=== PATIENT | female | born 1930 | race Caucasian/White ===

== ENCOUNTER 2017-06-22 07:58 | Day surgery (SDC) | payer MEDICARE, BC ==
[2017-06-22] MEDS ORDERED: Moxifloxacin 0.5% Ophth Soln 3 ML Bottle EYELF SCH (08:15)
[2017-06-22] MEDS ORDERED: Sodium Chloride 0.9% 5 ML Syringe FLUSH PRN (08:15)
[2017-06-22] MEDS ORDERED: Lactated Ringers 1,000 ML IV SCH (08:15)
[2017-06-22] MEDS: Phenylephrine 10% Ophth Soln 5 ML Bot EYELF SCH ×3 (08:22→08:55)
[2017-06-22] MEDS: Cyclopentolate 1% Opth Soln 2 ML Bottle EYELF SCH ×3 (08:32→09:05)
[2017-06-22] MEDS ORDERED: Water For Irrigation,Sterile 1,500 ML Container IRR ONE (09:57)
[2017-06-22] MEDS ORDERED: Balanced Salt Solution Ophth Irrig 15 ML Bottle EYELF ONE (09:58)
[2017-06-22] MEDS ORDERED: Balanced Salt Solution Plus Ophth Irrig 500 ML Bottle IOCULAR ONE (09:58)
[2017-06-22] MEDS ORDERED: EPINEPHrine 1 MG/ML SDV ONE (09:59)
[2017-06-22] MEDS ORDERED: Carbachol 0.01% Intraocular 1.5 ML Vial EYELF ONE (09:59)
[2017-06-22] MEDS ORDERED: Dexamethasone/Neomycin/Polymyxin B Ophth Oint 3.5 GM Tube EYELF ONE (09:59)
[2017-06-22] MEDS ORDERED: Lidocaine 1% 10 ML MDV INJECT ONE (10:00)
[2017-06-22] MEDS ORDERED: Lidocaine 2% with EPINEPHrine 1:100,000 20 ML MDV INJECT ONE (10:00)
[2017-06-22] MEDS ORDERED: Tetracaine HCl/PF 0.5% 4 ML Bottle EYEBOTH ONE (10:01)
[2017-06-22] MEDS ORDERED: Hyaluronate Sodium 1% 0.85 ML Syringe IOCULAR ONE (10:01)
--- NOTE | 2017-06-23 09:29 | OR ---
DATE OF SURGERY: 06/22/2017 SURGEON: Carlitos Garcia MD PREOPERATIVE DIAGNOSIS: Cataract, left eye. POSTOPERATIVE DIAGNOSIS: Cataract, left eye. OPERATION PERFORMED: Phacoemulsification with posterior chamber lens insertion, left eye. HISTORY: This lady presents with increasing difficulty seeing the print on television. The vision for the left eye is 20/60. The left lens has a 3+ nuclear sclerosis and a 3+ posterior subcapsular finding. 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 FINDINGS: The patient was taken to the operating room where appropriate anesthesia, sedation and monitoring were provided. A retrobulbar block was given on the left side. The eye was massaged and was found to be appropriately soft. The eye and eyelids were then prepped and draped in the usual sterile manner. A lid speculum was placed. A micro sharp blade was used to enter the anterior chamber inside the limbus inferior-temporally. Xylocaine was irrigated into the eye at this site. Healon was irrigated into the eye through this site. Then using a 2.85 mm corneal blade an entry was made into the anterior chamber just inside the limbus temporally. Healon was again irrigated into the eye. Then using a cystitome, the anterior capsulorrhexis was created. The lens nucleus was hydrodissected using a 27 gauge cannula and balanced salt solution. The phacoemulsification unit was introduced through the temporal site and the Festus spatula through the inferior temporal site. In so doing, the lens nucleus was phacoemulsified. The cortical fragments of the lens were removed using the irrigation aspiration unit. The posterior capsule was polished. Healon was irrigated into the eye. The posterior chamber lens was inserted and rotated into position inside the capsular bag. The Healon was irrigated out of the eye. Miostat was irrigated into the eye and the pupil rounded nicely. A single interrupted 10-0 Nylon suture was placed through the temporal corneal incision site. Balanced salt solution was irrigated into the eye. The wound was tested and found to be tight. Maxitrol ointment was placed into the patient's left eye. The eyelids were closed and an eye patch and nur shield were placed. The patient left the operating room in good condition. /[id number]/MODL
== END 2017-06-22 10:44 | disposition home or self-care (01) ==
LOC: KA.SDS 07:58
PROVIDERS: ATTEND Ophthalmology
DX: H25.812 Combined forms of age-related cataract, left eye (principal); I10 Essential (primary) hypertension; E78.1 Pure hyperglyceridemia; E78.00 Pure hypercholesterolemia, unspecified; Z79.899 Other long term (current) drug therapy
CPT/HCPCS: A9270-GY; J0171; J7120

== ENCOUNTER 2017-07-27 08:15 | Day surgery (SDC) | payer MEDICARE, BC ==
[~2017-07-27 08:15] MED LIST: Lactated Ringers 1,000 ML IV SCH; Sodium Chloride 0.9% 5 ML Syringe FLUSH PRN
[2017-07-27] MEDS: Phenylephrine 10% Ophth Soln 5 ML Bot EYERT SCH ×3 (08:31→09:03)
[2017-07-27] MEDS: Cyclopentolate 1% Opth Soln 2 ML Bottle EYERT SCH ×3 (08:41→09:17)
[2017-07-27] MEDS ORDERED: Moxifloxacin 0.5% Ophth Soln 3 ML Bottle EYERT ONE (08:45)
[2017-07-27] MEDS ORDERED: Water For Irrigation,Sterile 1,500 ML Container IRR ONE (10:12)
[2017-07-27] MEDS ORDERED: Carbachol 0.01% Intraocular 1.5 ML Vial EYERT ONE (10:13)
[2017-07-27] MEDS ORDERED: EPINEPHrine 1 MG/ML SDV ONE (10:13)
[2017-07-27] MEDS ORDERED: Balanced Salt Solution Plus Ophth Irrig 500 ML Bottle IOCULAR ONE (10:13)
[2017-07-27] MEDS ORDERED: Balanced Salt Solution Ophth Irrig 15 ML Bottle EYERT ONE (10:13)
[2017-07-27] MEDS ORDERED: Lidocaine 2% with EPINEPHrine 1:100,000 20 ML MDV INJECT ONE (10:14)
[2017-07-27] MEDS ORDERED: Dexamethasone/Neomycin/Polymyxin B Ophth Oint 3.5 GM Tube EYERT ONE (10:14)
[2017-07-27] MEDS ORDERED: Lidocaine 1% 10 ML MDV INJECT ONE (10:14)
[2017-07-27] MEDS ORDERED: Tetracaine HCl/PF 0.5% 4 ML Bottle EYEBOTH ONE (10:15)
[2017-07-27] MEDS ORDERED: Hyaluronate Sodium 1% 0.85 ML Syringe IOCULAR ONE (10:15)
--- NOTE | 2017-07-27 15:57 | OR ---
DATE OF SURGERY: 07/27/2017 SURGEON: Carlitos Garcia MD PREOPERATIVE DIAGNOSIS: Cataract, right eye. POSTOPERATIVE DIAGNOSIS: Cataract, right eye. OPERATION PERFORMED: Phacoemulsification with posterior chamber lens insertion, right eye. HISTORY: The patient presents at this time with an increasing amount of difficulty seeing print on television and she has difficulty seeing to drive at night. Vision for the right eye is 20/50. The right lens has a 3+ nuclear sclerosis and a 2+ posterior subcapsular cataract. There is a combined cataract and a cataract of aging. FINDINGS: The patient was taken to the operating room where appropriate anesthesia, sedation and monitoring were provided. A retrobulbar block was given on the right side. The eye was massaged and was found to be appropriately soft. The eye and eyelids were then prepped and draped in the usual sterile manner. A lid speculum was placed. A micro sharp blade was used to enter the anterior chamber inside the limbus superior-temporally. Xylocaine was irrigated into the eye at this site. Healon was irrigated into the eye through this site. Then using a 2.85 mm corneal blade an entry was made into the anterior chamber just inside the limbus temporally. Healon was again irrigated into the eye. Then using a cystitome, the anterior capsulorrhexis was created. The lens nucleus was hydrodissected using a 27 gauge cannula and balanced salt solution. The phacoemulsification unit was introduced through the temporal site and the Festus spatula through the superior temporal site. In so doing, the lens nucleus was phacoemulsified. The cortical fragments of the lens were removed using the irrigation aspiration unit. The posterior capsule was polished. Healon was irrigated into the eye. The posterior chamber lens was inserted and rotated into position inside the capsular bag. The Healon was irrigated out of the eye. Miostat was irrigated into the eye and the pupil rounded nicely. A single interrupted 10-0 Nylon suture was placed through the temporal corneal incision site. Balanced salt solution was irrigated into the eye. The wound was tested and found to be tight. Maxitrol ointment was placed into the patient's right eye. The eyelids were closed and an eye patch and nur shield were placed. The patient left the operating room in good condition. /[id number]/MODL
== END 2017-07-27 10:55 | disposition home or self-care (01) ==
LOC: KA.SDS 08:15
PROVIDERS: ATTEND Ophthalmology
DX: H26.9 Unspecified cataract (principal); E78.00 Pure hypercholesterolemia, unspecified; E78.1 Pure hyperglyceridemia; I10 Essential (primary) hypertension; Z79.899 Other long term (current) drug therapy
CPT/HCPCS: 00142; A9270-GY; C1780; J0171; J7120

== ENCOUNTER 2018-03-22 19:19 | Inpatient (IN) | payer MEDICARE, BC ==
[2018-03-22] MEDS ORDERED: Sodium Chloride 0.9% 10 ML Syringe FLUSH PRN ×2 (19:51→21:20)
--- NOTE | 2018-03-22 20:09 | EDM.PDOC ---
ED HPI GENERAL MEDICAL PROBLEM - General Chief Complaint: General Stated Complaint: WEAKNESS Time Seen by Provider: 03/22/18 19:35 Source of Information: Reports: Patient History Limitations: Reports: No Limitations - History of Present Illness INITIAL COMMENTS - FREE TEXT/NARRATIVE: 87 yo WF presents to ER complaining of generalized weakness with mild confusion. Family member states that they received a call earlier in the day from an out of state family member who was talking to patient on the phone and she seemed confused. Once they arrived pt was sitting in her chair and was too weak to ambulate on her own. Pt reported gettinga ride to her doctors office today by her neighbor but this was found to be untrue. Pt denies any chest pain , shortness of breath, recent illness, fever/chills, nausea/vomiting. Pt alert with no evidence of slurred speech, no facial droop, no headache or visual changes. Pt able to move all extremities but states she feels weak. Pt alert and oriented to self and place only. GCS-15 Onset: Unknown/Unsure Location: Reports: Generalized Severity: Mild Improves with: Reports: None Worsens with: Reports: None Associated Symptoms: Reports: Confusion, Malaise, Weakness. Denies: Chest Pain , Cough, cough w sputum, Diaphoresis, Fever/Chills, Headaches, Loss of Appetite , Nausea/Vomiting, Rash, Seizure, Shortness of Breath, Syncope - Related Data Allergies Allergy/AdvReac Type Severity Reaction Status Date / Time No Known Drug Allergies Allergy Cannot Verified 07/27/17 08:26 Remember Home Meds: Home Meds Benazepril [Lotensin] 10 mg PO DAILY 06/21/17 [History] Ca/D3/Mag#11/Zinc/Strategic Debriefing Specialist/Erik/Bor [Caltrate 600+D Plus Tablet] 1 tab PO BIDMEALS [History] Gemfibrozil 600 mg PO DAILY 06/21/17 [History] Baclofen 10 mg PO TID 03/22/18 [History] Past Medical History HEENT History: Reports: Cataract, Impaired Vision Cardiovascular History: Reports: High Cholesterol, Hypertension [employer] History: Reports: 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 - Infectious Disease History Other Infectious Disease History: unknown - Past Surgical History HEENT Surgical History: Reports: Cataract Surgery Musculoskeletal Surgical History: Reports: Knee Replacement Social & Family History - Family History Family Medical History: Noncontributory - Caffeine Use Caffeine Use: Reports: Coffee, Tea ED ROS GENERAL - Review of Systems Review Of Systems: See Below Constitutional: Reports: No Symptoms HEENT: Reports: No Symptoms Respiratory: Reports: No Symptoms Cardiovascular: Reports: No Symptoms Endocrine: Reports: No Symptoms GI/Abdominal: Reports: No Symptoms : Reports: No Symptoms Skin: Reports: No Symptoms Neurological: Reports: Confusion, Difficulty Walking, Weakness. Denies: Dizziness, Headache, Numbness, Paresthesia, Pre-Existing Deficit, Seizure, Syncope, Tingling, Tremors, Trouble Speaking, Change in Speech Psychiatric: Reports: Confusion Hematologic/Lymphatic: Reports: No Symptoms Immunologic: Reports: No Symptoms ED EXAM, NEURO - Physical Exam Exam: See Below Exam Limited By: Altered Mental Status General Appearance: Alert, WD/WN, No Apparent Distress Eye Exam: Bilateral Eye: EOMI, PERRL Nose: Normal Inspection, Normal Mucosa, No Blood Throat/Mouth: Normal Inspection, Normal Lips, Normal Teeth, Normal Gums, Normal Oropharynx, Normal Voice, No Airway Compromise Head Exam: Atraumatic, Normocephalic Neck: Normal Inspection, Supple, Non-Tender, Full Range of Motion Respiratory/Chest: No Respiratory Distress, Lungs Clear, Normal Breath Sounds, No Accessory Muscle Use, Chest Non-Tender Cardiovascular: Normal Peripheral Pulses, Regular Rate, Rhythm, No Edema, No Gallop, No JVD, No Murmur, No Rub GI/Abdominal: Normal Bowel Sounds, Soft, Non-Tender, No Organomegaly, No Distention, No Abnormal Bruit, No Mass Neurological: Alert, Normal Mood/Affect, Normal Dorsiflexion, CN II-XII Intact, Normal Plantar Flexion, Normal Reflexes, No Motor/Sensory Deficits Extremities: Normal Inspection, Normal Range of Motion, Non-Tender, No Pedal Edema, Normal Capillary Refill Psychiatric: Normal Affect, Normal Mood Skin Exam: Warm, Dry, Intact, Normal Color, No Rash EKG INTERPRETATION EKG Date: 03/22/18 Time: 20:05 Rhythm: NSR Rate (Beats/Min): 92 [place]: LAD-Left [place] Deviation P-Wave: Present QRS: Normal ST-T: Normal QT: Normal Comparison: NA - No Prior EKG Course - Vital Signs Last Recorded V/S: Last Vital Signs Temp 37.1 C 03/22/18 19:56 Pulse 100 03/22/18 19:56 Resp 16 03/22/18 19:56 BP 156/54 H 03/22/18 19:56 Pulse Ox 92 L 03/22/18 19:56 - Orders/Labs/Meds Orders: Active Orders 24 hr Category Date Time Status EKG Documentation Completion [RC] ASDIRECTED Care 03/22/18 19:52 Ordered Peripheral IV Care [RC] . DIRECTED Care 03/22/18 19:52 Active CULTURE BLOOD [BC] Stat Lab 03/22/18 20:54 Ordered CULTURE BLOOD [BC] Stat Lab 03/22/18 20:54 Ordered LACTIC ACID [CHEM] Stat Lab 03/22/18 20:39 Ordered URINALYSIS W/MICROSCOPIC [UA W/MICROSCOPIC] [URIN] Stat Lab 03/22/18 19:51 Ordered Sodium Chloride 0.9% [Normal Saline] 500 ml Med 03/22/18 21:00 Ordered IV .BOLUS Sodium Chloride 0.9% [Saline Flush] Med 03/22/18 19:51 Ordered 10 ml FLUSH Q8HR PRN Blood Culture x2 Reflex Set [OM.PC] Stat Oth 03/22/18 20:53 Ordered Peripheral IV Insertion Adult [OM.PC] Routine Oth 03/22/18 19:51 Ordered EKG 12 Lead [EK] Routine Ther 03/22/18 19:51 Ordered Medication Orders Sodium Chloride (Normal Saline) 500 mls @ 500 drops/hr IV .BOLUS LIN Sodium Chloride (Saline Flush) 10 ml FLUSH Q8HR PRN PRN Reason: keep vein open Labs: Laboratory Tests 03/22/18 03/22/18 Range/Units 20:10 20:10 WBC 18.29 H (5.00-10.00) 10^3/uL RBC 4.09 (3.80-5.50) 10^6/uL Hgb 12.6 (12.0-16.0) g/dL Hct 37.4 (37.0-47.0) % MCV 91.4 (82.0-92.0) fL MCH 30.8 (27.0-31.0) pg MCHC 33.7 (32.0-36.0) g/dL RDW 13.4 (11.5-14.5) % Plt Count 195 (150-400) 10^3/uL MPV 10.3 (7.4-10.4) fL Immature Gran % (Auto) 0.4 (0.0-5.0) % Neut % (Auto) 88.4 H (50.0-70.0) % Lymph % (Auto) 5.9 L (20.0-40.0) % [place] % (Auto) 5.0 (2.0-8.0) % Eos % (Auto) 0.2 L (1.0-3.0) % Baso % (Auto) 0.1 (0.0-1.0) % Immature Gran # (Auto) 0.08 (0.00-0.50) 10^3/uL Neut # (Auto) 16.18 H (2.50-7.00) 10^3/uL Lymph # (Auto) 1.07 (1.00-4.00) 10^3/uL [place] # (Auto) 0.92 H (0.10-0.80) 10^3/uL Eos # (Auto) 0.03 L (0.10-0.30) 10^3/uL Baso # (Auto) 0.01 (0.00-0.10) 10^3/uL Platelet Estimate Adequate Sodium 133 L (136-145) mmol/L Potassium 3.5 (3.3-5.3) mmol/L Chloride 93 L (98-115) mmol/L Carbon Dioxide 24.2 (21.0-32.0) mmol/L Anion Gap 19.3 H (5-15) mmol/L BUN 43 H (6-25) mg/dL Creatinine 0.83 (0.51-1.17) mg/dL Est Cr Clr Drug Dosing TNP Estimated GFR (MDRD) > 60 mL/min Glucose 174 H (75 - 99) mg/dL Calcium 9.9 (8.7-10.3) mg/dL Total Bilirubin 0.6 (0.2-1.0) mg/dL AST 33 (15-37) U/L ALT 26 (12-78) U/L Alkaline Phosphatase 86 (46-116) IU/L Creatine Kinase 173 (26-276) U/L CK-MB (CK-2) 6.30 H* (0.00-4.30) ng/mL Troponin I 0.04 (0.00-0.070) ng/mL Total Protein 7.9 (6.4-8.2) g/dL Albumin 2.89 L (3.00-4.80) g/dL Meds: Medications Generic Name Dose Route Start Last Admin Trade Name Freq PRN Reason Stop Dose Admin Sodium Chloride 500 mls @ 500 drops/hr 03/22/18 21:00 Normal Saline IV .BOLUS LIN Sodium Chloride 10 ml 03/22/18 19:51 Saline Flush FLUSH Q8HR PRN keep vein open - Radiology Interpretation Free Text/Narrative:: CXR- NAD CT Head- NAD Departure - Departure Time of Disposition: 21:17 Disposition: Admitted As Inpatient 67 Condition: Fair Clinical Impression: UTI, Urinary tract infectious disease, Dehydration Leukocytosis Qualifiers: Leukocytosis type: other Qualified Code(s): D72.828 - Other elevated white blood cell count - Discharge Information Referrals: Avtar Perez MD [Primary Care Provider] - Forms: ED Department Discharge - My Orders Last 24 Hours: My Active Orders 03/22/18 19:51 URINALYSIS W/MICROSCOPIC [UA W/MICROSCOPIC] [URIN] Stat Sodium Chloride 0.9% [Saline Flush] 10 ml FLUSH Q8HR PRN Peripheral IV Insertion Adult [OM.PC] Routine EKG 12 Lead [EK] Routine 03/22/18 19:52 EKG Documentation Completion [RC] ASDIRECTED Peripheral IV Care [RC] . DIRECTED 03/22/18 20:39 LACTIC ACID [CHEM] Stat 03/22/18 20:53 Blood Culture x2 Reflex Set [OM.PC] Stat 03/22/18 20:54 CULTURE BLOOD [BC] Stat CULTURE BLOOD [BC] Stat 03/22/18 21:00 Sodium Chloride 0.9% [Normal Saline] 500 ml IV .BOLUS - Assessment/Plan Last 24 Hours: My Active Orders 03/22/18 19:51 URINALYSIS W/MICROSCOPIC [UA W/MICROSCOPIC] [URIN] Stat Sodium Chloride 0.9% [Saline Flush] 10 ml FLUSH Q8HR PRN Peripheral IV Insertion Adult [OM.PC] Routine EKG 12 Lead [EK] Routine 03/22/18 19:52 EKG Documentation Completion [RC] ASDIRECTED Peripheral IV Care [RC] . DIRECTED 03/22/18 20:39 LACTIC ACID [CHEM] Stat 03/22/18 20:53 Blood Culture x2 Reflex Set [OM.PC] Stat 03/22/18 20:54 CULTURE BLOOD [BC] Stat CULTURE BLOOD [BC] Stat 03/22/18 21:00 Sodium Chloride 0.9% [Normal Saline] 500 ml IV .BOLUS Assessment:: 1. Leukocytosis 2. probable UTI 3. dehydration Plan: 1. admit to [facility] 2. NS@125cc/hr 3. rocephin 1g IV QD 4. blood cultures x 2 5. supportive care
--- NOTE | 2018-03-22 20:46 | CT ---
[id number] CT/CT Head WO IV EXAM: CT Head WO IV CLINICAL DATA: WEAKNESS COMPARISON STUDY: None FINDINGS: No intracranial hemorrhage, extra-axial fluid collection, mass, or acute ischemia. Generalized parenchymal atrophy with scattered areas of nonspecific white matter disease, commonly seen as sequela of chronic microvascular ischemia. Soft tissues are unremarkable. Paranasal sinuses and mastoid air cells are clear. IMPRESSION: No acute intracranial findings. Tyree Case DO 03/22/18 2045 Thank you for allowing us to participate in the care of your patient.
--- NOTE | 2018-03-22 20:48 | CR ---
[id number] RAD/RAD Chest PA or AP 1V EXAM: RAD Chest PA or AP 1V INDICATION: WEAKNESS COMPARISON: July 24, 2017. DISCUSSION: Cardiomediastinal silhouette is increased in size. No infiltrate, effusion, pneumothorax, or edema. Bibasilar subsegmental atelectasis. IMPRESSION: No acute cardiopulmonary abnormality. Tyree Case DO 03/22/18 2047 Thank you for allowing us to participate in the care of your patient.
[2018-03-22 20:51] LABS: ANION GAP 19.3 mmol/L (5-15); CHLORIDE,CL 93 mmol/L (98-115); SODIUM,NA 133 mmol/L (136-145)
[2018-03-22] MEDS ORDERED: Sodium Chloride 0.9% 500 ML IV SCH (21:00)
[2018-03-22] MEDS ORDERED: cefTRIAXone 1 GM Vial IVPUSH SCH (21:30)
[2018-03-22] MEDS: Sodium Chloride 0.9% 1,000 ML IV SCH (22:55)
[2018-03-23] MEDS: Sodium Chloride 0.9% 1,000 ML IV SCH ×2 (06:46→14:50)
[2018-03-23 07:45] LABS: CHLORIDE,CL 97 mmol/L (98-115); SODIUM,NA 144 mmol/L (136-145)
--- NOTE | 2018-03-23 10:04 | PCM.HP ---
H&P History of Present Illness - General Date of Service: 03/23/18 Admit Problem/Dx: Admission Diagnosis/Problem Admission Diagnosis/Problem Leukocytosis Source of Information: Patient, Old Records, RN History Limitations: Reports: No Limitations - History of Present Illness Initial Comments - Free Text/Narative: Kate is an 87-year-old female who was admitted last night around 1999 through the ED when she came in due to generalized weakness with some mild confusion. Patients family members stated they received a call earlier in the day from an out of state family member who was talking to patient on the phone and she seemed confused. Once they arrived pt was sitting in her chair and was too weak to ambulate on her own. Her presentation in the ER was without any chest pain or shortness of breath, she denied recent illness, fever/chills, nausea/ vomiting. She had no appearance of CVA such as slurred speech, no facial droop, no headache or visual changes. Pt able to move all extremities but states she feels weak. GCS-15. She had been having cervical muscle spasm and a few weeks ago was on Valium. She was given 1 g of Rocephin in the ED and blood cultures were taken, started on IV fluids and was admitted to inpatient care. Yost catheter was placed upon admission last night, Lactic acid slightly elevated at 2.2. Posterior Neck Pain Score (Numeric/FACES): 5 - Related Data Allergies/Adverse Reactions: Allergies Allergy/AdvReac Type Severity Reaction Status Date / Time No Known Drug Allergies Allergy Cannot Verified 03/27/18 06:21 Remember Home Medications: Home Meds Benazepril [Lotensin] 10 mg PO DAILY 06/21/17 [History] Ca/D3/Mag#11/Zinc/Hand Clipper/Erik/Bor [Caltrate 600+D Plus Tablet] 1 tab PO BIDMEALS [History] Gemfibrozil 600 mg PO DAILY 06/21/17 [History] Baclofen 10 mg PO TID 03/22/18 [History] Doxylamine Succinate [Unisom Sleep Aid] 25 mg PO BEDTIME 03/26/18 [History] Past Medical History HEENT History: Reports: Cataract, Impaired Vision Cardiovascular History: Reports: High Cholesterol, Hypertension Respiratory History: Reports: None Genitourinary History: Reports: Renal Calculus, Urinary Incontinence 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: Musculoskeletal History: Reports: Neck Pain, Chronic, Other (See Below) Other Musculoskeletal History: 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 Neurological History: Reports: None Hematologic History: Reports: Blood Transfusion(s) 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 - Infectious Disease History Other Infectious Disease History: unknown - Past Surgical History Head Surgeries/Procedures: Reports: None HEENT Surgical History: Reports: Cataract Surgery Cardiovascular Surgical History: Reports: None Respiratory Surgical History: Reports: None GI Surgical History: Reports: Appendectomy, Cholecystectomy Female Surgical History: Reports: Hysterectomy, Kidney stone extraction Musculoskeletal Surgical History: Reports: Knee Replacement Social & Family History - Family History HEENT: Reports: None Cardiac: Reports: Heart Murmur, Hypertension, HI Respiratory: Reports: COPD GI: Reports: None : Reports: None OBGYN: Reports: None Musculoskeletal: Reports: None Neurological: Reports: Dementia Psychiatric: Reports: None Endocrine/Metabolic: Reports: None Hematologic: Reports: None Immunologic: Reports: None Dermatologic: Reports: None Oncologic: Reports: None - Tobacco Use Smoking Status *Q: Never Smoker Second Hand Smoke Exposure: No - Caffeine Use Caffeine Use: Reports: Coffee - Recreational Drug Use Recreational Drug Use: No H&P Review of Systems - Review of Systems: Review Of Systems: See Below General: Reports: Malaise. Denies: Fever, Chills, Night Sweats, Diaphoresis HEENT: Reports: No Symptoms Pulmonary: Reports: No Symptoms Cardiovascular: Reports: No Symptoms Gastrointestinal: Reports: Constipation, Other (Hemorrhoids) Genitourinary: Reports: Other (Urine odor). Denies: Dysuria, Frequency, Burning , Pain Musculoskeletal: Reports: Leg Pain Skin: Reports: Dryness Psychiatric: Reports: Mood Lability. Denies: Confusion Neurological: Denies: Confusion Hematologic/Lymphatic: Reports: No Symptoms Immunologic: Reports: No Symptoms Exam - Exam Exam: See Below - Vital Signs Vital Signs: Last Vital Signs Temp 97.8 F 03/23/18 06:53 Pulse 70 03/23/18 06:53 Resp 16 03/23/18 06:53 BP 100/40 L 03/23/18 06:53 Pulse Ox 93 L 03/23/18 06:53 Weight: 181 lb 5 oz - Exam Quality Assessment: No: Supplemental Oxygen General: Alert, Oriented, Cooperative. No: Mild Distress HEENT: No: Mucosa Moist & [place] Neck: Supple Lungs: Clear to Auscultation, Normal Respiratory Effort Cardiovascular: Regular Rate, Regular Rhythm GI/Abdominal Exam: Soft, No Organomegaly, No Distention. No: Non-Tender, Distended (Female) Exam: Deferred Back Exam: Muscle Spasm, Other (Range of motion cervical left and right 50% reduced,). No: CVA Tenderness (L), CVA Tenderness (R), Paraspinal Tenderness Extremities: No Pedal Edema Skin: Warm, Dry, Intact Neurological: Cranial Nerves Intact Neuro Extensive - Mental Status: Alert, Oriented x3 Neuro Extensive - Motor, Sensory, Reflexes: CN II-XII Intact Psychiatric: Alert, Labile Mood. No: Agitated - Patient Data Lab Results Last 24 hrs: Laboratory Results - last 24 hr 03/22/18 03/22/18 03/22/18 Range/Units 20:10 20:10 20:10 WBC 18.29 H (5.00-10.00) 10^3/uL RBC 4.09 (3.80-5.50) 10^6/uL Hgb 12.6 (12.0-16.0) g/dL Hct 37.4 (37.0-47.0) % MCV 91.4 (82.0-92.0) fL MCH 30.8 (27.0-31.0) pg MCHC 33.7 (32.0-36.0) g/dL RDW 13.4 (11.5-14.5) % Plt Count 195 (150-400) 10^3/uL MPV 10.3 (7.4-10.4) fL Immature Gran % (Auto) 0.4 (0.0-5.0) % Neut % (Auto) 88.4 H (50.0-70.0) % Lymph % (Auto) 5.9 L (20.0-40.0) % [place] % (Auto) 5.0 (2.0-8.0) % Eos % (Auto) 0.2 L (1.0-3.0) % Baso % (Auto) 0.1 (0.0-1.0) % Immature Gran # (Auto) 0.08 (0.00-0.50) 10^3/uL Neut # (Auto) 16.18 H (2.50-7.00) 10^3/uL Lymph # (Auto) 1.07 (1.00-4.00) 10^3/uL [place] # (Auto) 0.92 H (0.10-0.80) 10^3/uL Eos # (Auto) 0.03 L (0.10-0.30) 10^3/uL Baso # (Auto) 0.01 (0.00-0.10) 10^3/uL Platelet Estimate Adequate Sodium 133 L (136-145) mmol/L Potassium 3.5 (3.3-5.3) mmol/L Chloride 93 L (98-115) mmol/L Carbon Dioxide 24.2 (21.0-32.0) mmol/L Anion Gap 19.3 H (5-15) mmol/L BUN 43 H (6-25) mg/dL Creatinine 0.83 (0.51-1.17) mg/dL Est Cr Clr Drug Dosing TNP Estimated GFR (MDRD) > 60 mL/min Glucose 174 H (75 - 99) mg/dL Lactic Acid 2.2 H (0.4-2.0) mmol/L Calcium 9.9 (8.7-10.3) mg/dL Total Bilirubin 0.6 (0.2-1.0) mg/dL AST 33 (15-37) U/L ALT 26 (12-78) U/L Alkaline Phosphatase 86 (46-116) IU/L Creatine Kinase 173 (26-276) U/L CK-MB (CK-2) 6.30 H* (0.00-4.30) ng/mL Troponin I 0.04 (0.00-0.070) ng/mL Total Protein 7.9 (6.4-8.2) g/dL Albumin 2.89 L (3.00-4.80) g/dL Specimen Type Urine Color (YELLOW) Urine Appearance (CLEAR) Urine pH (5.0-9.0) Ur Specific [place] (1.005-1.030) Urine Protein (NEGATIVE) mg/dL Urine Glucose (UA) (NEGATIVE) mg/dL Urine Ketones (NEGATIVE) mg/dL Urine Occult Blood (NEGATIVE) Urine Nitrite (NEGATIVE) Urine Bilirubin (NEGATIVE) Urine Urobilinogen (0.2-1.0) E.U./dL Ur Leukocyte Esterase (NEGATIVE) Urine RBC (0-5) /HPF Urine WBC (0-5) /HPF Ur Epithelial Cells /LPF Urine Bacteria (NONE TO FEW) /HPF 03/22/18 03/23/18 03/23/18 Range/Units 21:00 07:15 07:15 WBC 11.72 H (5.00-10.00) 10^3/uL RBC 3.55 L (3.80-5.50) 10^6/uL Hgb 11.1 L D (12.0-16.0) g/dL Hct 32.5 L (37.0-47.0) % MCV 91.5 (82.0-92.0) fL MCH 31.3 H (27.0-31.0) pg MCHC 34.2 (32.0-36.0) g/dL RDW 13.5 (11.5-14.5) % Plt Count 175 (150-400) 10^3/uL MPV 9.4 (7.4-10.4) fL Immature Gran % (Auto) 0.3 (0.0-5.0) % Neut % (Auto) 82.5 H (50.0-70.0) % Lymph % (Auto) 10.0 L (20.0-40.0) % [place] % (Auto) 6.2 (2.0-8.0) % Eos % (Auto) 0.9 L (1.0-3.0) % Baso % (Auto) 0.1 (0.0-1.0) % Immature Gran # (Auto) 0.04 (0.00-0.50) 10^3/uL Neut # (Auto) 9.67 H (2.50-7.00) 10^3/uL Lymph # (Auto) 1.17 (1.00-4.00) 10^3/uL [place] # (Auto) 0.73 (0.10-0.80) 10^3/uL Eos # (Auto) 0.10 (0.10-0.30) 10^3/uL Baso # (Auto) 0.01 (0.00-0.10) 10^3/uL Platelet Estimate Sodium 144 D (136-145) mmol/L Potassium 3.1 L (3.3-5.3) mmol/L Chloride 97 L (98-115) mmol/L Carbon Dioxide 25.1 (21.0-32.0) mmol/L Anion Gap 25.0 H (5-15) mmol/L BUN 28 H (6-25) mg/dL Creatinine 0.67 (0.51-1.17) mg/dL Est Cr Clr Drug Dosing 56.42 Estimated GFR (MDRD) > 60 mL/min Glucose 119 H (75 - 99) mg/dL Lactic Acid (0.4-2.0) mmol/L Calcium 8.8 (8.7-10.3) mg/dL Total Bilirubin (0.2-1.0) mg/dL AST (15-37) U/L ALT (12-78) U/L Alkaline Phosphatase (46-116) IU/L Creatine Kinase (26-276) U/L CK-MB (CK-2) (0.00-4.30) ng/mL Troponin I (0.00-0.070) ng/mL Total Protein (6.4-8.2) g/dL Albumin (3.00-4.80) g/dL Specimen Type Urincath Urine Color Yellow (YELLOW) Urine Appearance Slightly cloudy H (CLEAR) Urine pH 5.5 (5.0-9.0) Ur Specific [place] 1.025 (1.005-1.030) Urine Protein 30 H (NEGATIVE) mg/dL Urine Glucose (UA) Negative (NEGATIVE) mg/dL Urine Ketones Trace H (NEGATIVE) mg/dL Urine Occult Blood Moderate H (NEGATIVE) Urine Nitrite Positive H (NEGATIVE) Urine Bilirubin Negative (NEGATIVE) Urine Urobilinogen 0.2 (0.2-1.0) E.U./dL Ur Leukocyte Esterase Trace H (NEGATIVE) Urine RBC 0-5 (0-5) /HPF Urine WBC 30-40 H (0-5) /HPF Ur Epithelial Cells Few /LPF Urine Bacteria Many H (NONE TO FEW) /HPF Result Diagrams: 03/26/18 07:30 03/26/18 07:30 Problem List Initiated/Reviewed/Updated: Yes Orders Last 24hrs: Active Orders 24 hr Category Date Time Status Patient Status [ADT] Routine ADT 03/22/18 21:20 Ordered Yost Catheter Insertion [Insert Urinary Catheter] [OM. Care 03/22/18 22:45 Ordered PC] Q24H Oxygen Therapy [RC] PRN Care 03/22/18 21:20 Active Peripheral IV Care [RC] . DIRECTED Care 03/22/18 19:52 Inactive Peripheral IV Care [RC] . DIRECTED Care 03/22/18 21:23 Active Up With Assistance [RC] ASDIRECTED Care 03/22/18 21:20 Active Urinary Catheter Assessment [RC] ASDIRECTED Care 03/22/18 22:44 Active VTE/DVT Education [RC] PER UNIT ROUTINE Care 03/22/18 21:20 Active Vital Signs [RC] 0300,0700,1100,1500,1900,2300 Care 03/22/18 21:20 Active 2 Gram Sodium Diet [DIET] Diet 03/23/18 Breakfast Active CULTURE BLOOD [BC] Stat Lab 03/22/18 21:10 Received CULTURE BLOOD [BC] Stat Lab 03/22/18 21:40 Received CULTURE URINE [RM] Stat Lab 03/22/18 21:00 Received Acetaminophen [Tylenol] Med 03/22/18 21:20 Active 650 mg PO Q4H PRN Sodium Chloride 0.9% [Normal Saline] 1,000 ml Med 03/22/18 21:30 Active IV ASDIRECTED Sodium Chloride 0.9% [Normal Saline] 500 ml Med 03/22/18 21:00 Active IV .BOLUS Sodium Chloride 0.9% [Saline Flush] Med 03/22/18 21:20 Active 10 ml FLUSH Q8HR PRN cefTRIAXone [Rocephin] Med 03/22/18 21:30 Active 1 gm IVPUSH Q24H Blood Culture x2 Reflex Set [OM.PC] Stat Oth 03/22/18 20:53 Ordered Peripheral IV Insertion Adult [OM.PC] Routine Oth 03/22/18 19:51 Ordered Peripheral IV Insertion Adult [OM.PC] Routine Oth 03/22/18 21:20 Ordered Resuscitation Status Routine Resus Stat 03/22/18 21:20 Ordered Medication Orders Acetaminophen (Tylenol) 650 mg PO Q4H PRN PRN Reason: Pain (Mild 1-3)/fever Ceftriaxone Sodium (Rocephin) 1 gm IVPUSH Q24H LIN Last Admin: 03/22/18 22:55 Dose: 1 gm Sodium Chloride (Normal Saline) 500 mls @ 500 drops/hr IV .BOLUS LIN Sodium Chloride (Normal Saline) 1,000 mls @ 125 mls/hr IV ASDIRECTED [facility] Last Admin: 03/23/18 06:46 Dose: 125 mls/hr Infusion: 03/23/18 06:46 Dose: 125 mls/hr Admin: 03/22/18 22:55 Dose: 125 mls/hr Sodium Chloride (Saline Flush) 10 ml FLUSH Q8HR PRN PRN Reason: keep vein open Assessment/Plan Comment:: History of present illness Kate is an 87-year-old female who was admitted last night around 1999 through the ED when she came in due to generalized weakness with some mild confusion. Patients family members stated they received a call earlier in the day from an out of state family member who was talking to patient on the phone and she seemed confused. Once they arrived pt was sitting in her chair and was too weak to ambulate on her own. Her presentation in the ER was without any chest pain or shortness of breath, she denied recent illness, fever/chills, nausea/ vomiting. She had no appearance of CVA such as slurred speech, no facial droop, no headache or visual changes. Pt able to move all extremities but states she feels weak. GCS-15. She had been having cervical muscle spasm and a few weeks ago was on Valium. She was given 1 g of Rocephin in the ED and blood cultures were taken, started on IV fluids and was admitted to inpatient care. Yost catheter was placed upon admission last night, Lactic acid slightly elevated at 2.2. Pertinent ED findings Afebrile, heart rate 100, blood pressure 156/54, O2 sats 92% room air WBC, 18,000, neutrophilia 88% Troponin normal, CK-MB 6.3 (H) Urine, suggestive of UTI, Other pertinent diagnostics EKG, sinus rhythm, left axis deviation Chest x-ray, no acute process Blood culture today; Primary problem Urinary tract infection/bacteremic sepsis, oxidase negative/highly suspect Escherichia offending organism Hypokalemia, mild constipation with hemmoroids Other chronic stable problems Lipidemia Hypertension Obesity Cataract overall plan/Disposition; urine culture this morning demonstrates oxidase negative which I suspect Escherichia coli as offending agent. Blood culture this morning anaerobic positive for gram-negative rods, inpatient admission. qSOFA 0/3, closely monitor for any signs of sepsis complications and other organ dysfunction, monitor vital signs for increased respiratory rate or low blood pressure, report vomiting, tachypniec fever, developing shortness of breath or cough, decrease urinary output or altered mental status. Discontinue offending lines Yost catheter now as to decrease risk of subsequent hospital- related co-infections. Continue ceftriaxone however increased to 2 g. Add Zoysn until definitive organism manifestation. Continue IV fluids with normal saline at 125 mL per hour for now and will monitor output closely. Likely can reduce this later this evening. Repeat labs in morning.
[2018-03-23] MEDS ORDERED: Potassium Chloride 20 MEQ in Premix Bag 1 BAG IV ONE (12:28)
[2018-03-23] MEDS ORDERED: cefTRIAXone 1 GM Vial IVPUSH SCH (12:33)
[2018-03-23] MEDS: Acetaminophen 325 MG Tab PO PRN ×2 (12:45→18:13)
[2018-03-23] MEDS ORDERED: Piperacillin/Tazobactam/Dext 3.375 GM in Premix Bag 1 BAG IV SCH (12:45)
[2018-03-23] MEDS: Piperacillin/Tazobactam/Dext 3.375 GM in Premix Bag 1 BAG IV SCH ×2 (16:24→22:07)
[2018-03-23] MEDS: Diclofenac Sodium 1% Gel 100 GM Tube TOP PRN ×2 (16:28→22:11)
[2018-03-23] MEDS: Potassium Bicarbonate/Potassium Chloride 25 MEQ Tab.Eff PO SCH (18:11)
[2018-03-23] MEDS ORDERED: Bisacodyl 5 MG Tab PO ONE (20:14)
[2018-03-23] MEDS: Hydrocortisone 2.5% Crm 30 GM Tube TOP SCH (21:18)
[2018-03-23] MEDS: Docusate Sodium 100 MG Cap PO SCH (21:18)
[2018-03-24] MEDS: Sodium Chloride 0.9% 1,000 ML IV SCH ×2 (04:11→21:58)
[2018-03-24] MEDS: Piperacillin/Tazobactam/Dext 3.375 GM in Premix Bag 1 BAG IV SCH ×4 (04:11→22:07)
[2018-03-24] MEDS: Diclofenac Sodium 1% Gel 100 GM Tube TOP PRN ×2 (05:33→20:20)
[2018-03-24] MEDS: Acetaminophen 325 MG Tab PO PRN ×2 (05:37→12:21)
[2018-03-24 07:57] LABS: ANION GAP 15.6 mmol/L (5-15); CHLORIDE,CL 104 mmol/L (98-115); SODIUM,NA 139 mmol/L (136-145)
[2018-03-24] MEDS ORDERED: Magnesium Hydroxide 400 MG/5 ML Susp 30 ML Cup PO PRN (08:11)
[2018-03-24] MEDS ORDERED: Lidocaine 1% 10 ML MDV INJECT PRN (09:15)
[2018-03-24] MEDS: Docusate Sodium 100 MG Cap PO SCH (09:37)
[2018-03-24] MEDS: Potassium Bicarbonate/Potassium Chloride 25 MEQ Tab.Eff PO SCH (09:38)
--- NOTE | 2018-03-24 10:47 | PCM.PN ---
- General Info Date of Service: 03/24/18 Functional Status: Reports: Tolerating Diet. Denies: Pain Controlled, Ambulating, Urinating - Review of Systems General: Reports: Weakness. Denies: Fever, Night Sweats HEENT: Reports: No Symptoms Pulmonary: Reports: No Symptoms Cardiovascular: Reports: No Symptoms Gastrointestinal: Reports: Constipation, Other (Hemorrhoid) Genitourinary: Reports: Retention. Denies: Frequency Musculoskeletal: Reports: Neck Pain, Joint Pain, Joint Swelling (Left knee pain and swelling, cervical neck pain) Skin: Reports: No Symptoms Neurological: Reports: Weakness, Gait Disturbance. Denies: Change in Speech Psychiatric: Reports: Mood Lability - Patient Data Vitals - Most Recent: Last Vital Signs Temp 97.8 F 03/24/18 06:19 Pulse 74 03/24/18 06:19 Resp 18 03/24/18 06:19 BP 130/80 03/24/18 06:19 Pulse Ox 94 L 03/24/18 07:15 Weight - Most Recent: 181 lb 5 oz I&O - Last 24 Hours: Intake & Output 03/23/18 03/24/18 03/24/18 22:59 06:59 14:59 Intake Total 3111 920 Output Total 550 200 Balance 2561 720 Lab Results Last 24 Hours: Laboratory Results - last 24 hr 03/23/18 03/24/18 03/24/18 Range/Units 07:15 07:15 07:15 WBC 8.73 (5.00-10.00) 10^3/uL RBC 3.39 L (3.80-5.50) 10^6/uL Hgb 10.6 L (12.0-16.0) g/dL Hct 31.5 L (37.0-47.0) % MCV 92.9 H (82.0-92.0) fL MCH 31.3 H (27.0-31.0) pg MCHC 33.7 (32.0-36.0) g/dL RDW 13.6 (11.5-14.5) % Plt Count 164 (150-400) 10^3/uL MPV 9.2 (7.4-10.4) fL Immature Gran % (Auto) 0.8 (0.0-5.0) % Neut % (Auto) 78.7 H (50.0-70.0) % Lymph % (Auto) 10.9 L (20.0-40.0) % [place] % (Auto) 7.6 (2.0-8.0) % Eos % (Auto) 1.8 (1.0-3.0) % Baso % (Auto) 0.2 (0.0-1.0) % Immature Gran # (Auto) 0.07 (0.00-0.50) 10^3/uL Neut # (Auto) 6.87 (2.50-7.00) 10^3/uL Lymph # (Auto) 0.95 L (1.00-4.00) 10^3/uL [place] # (Auto) 0.66 (0.10-0.80) 10^3/uL Eos # (Auto) 0.16 (0.10-0.30) 10^3/uL Baso # (Auto) 0.02 (0.00-0.10) 10^3/uL Sodium 139 (136-145) mmol/L Potassium 3.8 (3.3-5.3) mmol/L Chloride 104 (98-115) mmol/L Carbon Dioxide 23.2 (21.0-32.0) mmol/L Anion Gap 15.6 H (5-15) mmol/L BUN 19 (6-25) mg/dL Creatinine 0.72 (0.51-1.17) mg/dL Est Cr Clr Drug Dosing 52.50 mL/min Estimated GFR (MDRD) > 60 mL/min Glucose 104 H (75 - 99) mg/dL Lactic Acid 1.2 (0.4-2.0) mmol/L Calcium 8.3 L (8.7-10.3) mg/dL C-Reactive Protein 22.6 H (0.0-0.9) mg/dL Red Results Last 24 Hours: Microbiology 03/22/18 21:40 Aerobic Blood Culture - Preliminary Blood - Venous - Lab Draw NO GROWTH AFTER 1 DAY Anaerobic Blood Culture - Preliminary NO GROWTH AFTER 1 DAY 03/22/18 21:10 Aerobic Blood Culture - Preliminary Blood - Venous NO GROWTH AFTER 1 DAY Anaerobic Blood Culture - Preliminary 03/22/18 21:00 Urine Culture - Final Urine, Catheterized Med Orders - Current: Current Medications Acetaminophen (Tylenol) 650 mg PO Q4H PRN PRN Reason: Pain (Mild 1-3)/fever Last Admin: 03/24/18 05:37 Dose: 650 mg Ceftriaxone Sodium (Rocephin) 2 gm IVPUSH Q24H [facility] Diclofenac Sodium (Voltaren 1% Gel) 0.5 gm TOP TID PRN PRN Reason: cervical neck Last Admin: 03/24/18 05:33 Dose: 1 applic Docusate Sodium (Colace) 100 mg PO DAILY [facility] Last Admin: 03/24/18 09:37 Dose: 100 mg Hydrocortisone (Proctozone-Hc 2.5% Crm) 0 gm TOP TID [facility] Last Admin: 03/23/18 21:18 Dose: 1 applic Sodium Chloride (Normal Saline) 500 mls @ 500 drops/hr IV .BOLUS [facility] Piperacillin/Tazobactam/ (Dextrose 3.375 gm/ Premix) 50 mls @ 100 mls/hr IV Q6H [facility] Last Admin: 03/24/18 04:11 Dose: 100 mls/hr Sodium Chloride (Normal Saline) 1,000 mls @ 75 mls/hr IV ASDIRECTED [facility] Last Admin: 03/24/18 04:11 Dose: 75 mls/hr Lidocaine HCl (Xylocaine 1%) 10 ml INJECT ONETIME PRN PRN Reason: aspiration of L knee Stop: 03/24/18 14:00 Magnesium Hydroxide (Milk Of Magnesia) 30 ml PO BID PRN PRN Reason: Constipation Last Admin: 03/24/18 09:37 Dose: 30 ml Potassium Bicarb/Potassium Chloride (Potassium Chloride, Effervescent) 25 meq PO DAILY [facility] Last Admin: 03/24/18 09:38 Dose: 25 meq Sodium Chloride (Saline Flush) 10 ml FLUSH Q8HR PRN PRN Reason: keep vein open Discontinued Medications Bisacodyl (Dulcolax) 10 mg PO ONETIME ONE Stop: 03/23/18 20:15 Last Admin: 03/23/18 21:17 Dose: 10 mg Ceftriaxone Sodium (Rocephin) 1 gm IVPUSH Q24H [facility] Last Admin: 03/22/18 22:55 Dose: 1 gm Ceftriaxone Sodium (Rocephin) 2 gm IVPUSH Q24H [facility] Last Admin: 03/23/18 14:51 Dose: 2 gm Sodium Chloride (Normal Saline) 1,000 mls @ 125 mls/hr IV ASDIRECTED [facility] Last Admin: 03/23/18 14:50 Dose: 125 mls/hr Potassium Chloride 20 meq/ (Premix) 100 mls @ 50 mls/hr IV ONETIME ONE Stop: 03/23/18 14:27 Last Admin: 03/23/18 14:47 Dose: 50 mls/hr Piperacillin/Tazobactam/ (Dextrose 3.375 gm/ Premix) 50 mls @ 100 mls/hr IV Q6H [facility] Last Admin: 03/23/18 15:47 Dose: 100 mls/hr Sodium Chloride (Saline Flush) 10 ml FLUSH Q8HR PRN PRN Reason: keep vein open - Exam Quality Assessment: No: Supplemental Oxygen General: Alert, Oriented, Cooperative, No Acute Distress Neck: Supple Lungs: Clear to Auscultation, Normal Respiratory Effort Cardiovascular: Regular Rate, Regular Rhythm GI/Abdominal Exam: Soft. No: Distended Back Exam: No: CVA Tenderness (L), CVA Tenderness (R) Extremities: No Pedal Edema, Other (Left knee generalize edema, slight ballottement, some crepitus, no Dumont cyst palpable) Peripheral Pulses: 2+: Radial (R), Femoral (L) Skin: Warm, Dry, Intact Neurological: Normal Speech, Normal Tone, Sensation Intact Psy/Mental Status: Alert, Normal Affect, Normal Mood - Problem List Review Problem List Initiated/Reviewed/Updated: Yes - My Orders Last 24 Hours: My Active Orders 03/23/18 12:22 PT Evaluation and Treatment [CONS] Routine 03/23/18 12:35 Intake and Output [RC] 1400,2200,0600 03/23/18 12:49 Diclofenac Sodium [Voltaren 1% Gel] 0.5 gm TOP TID PRN 03/23/18 16:00 Piperacillin/Tazobactam/Dext [Zosyn in Dextrose Iso-Osmotic 3.375 GM] 3.375 gm Premix Bag 1 bag IV Q6H 03/23/18 17:00 Potassium Bicarb/Potassium Chl [Potassium Chloride, Effervescent] 25 meq PO DAILY 03/23/18 20:00 Sodium Chloride 0.9% [Normal Saline] 1,000 ml IV ASDIRECTED 03/23/18 20:15 Docusate Sodium [Colace] 100 mg PO DAILY 03/23/18 20:46 MAREN Hose [Antiembolic Hose] [OM.PC] Routine 03/23/18 20:47 Antiembolic Devices [RC] PER UNIT ROUTINE Antiembolic Devices [RC] PER UNIT ROUTINE SCD [Sequential Compression Device] [OM.PC] Routine 03/23/18 20:48 Insert Urinary Catheter [OM.PC] Stat 03/23/18 20:56 Urinary Catheter Assessment [RC] ASDIRECTED 03/23/18 21:00 Hydrocortisone [Proctozone-HC 2.5% Crm] 0 gm TOP TID 03/24/18 09:15 Lidocaine 1% [Xylocaine 1%] 10 ml INJECT ONETIME PRN 03/24/18 14:00 cefTRIAXone [Rocephin] 2 gm IVPUSH Q24H - Plan Plan:: History of present illness Kate is an 87-year-old female who was admitted last night around 1999 through the ED when she came in due to generalized weakness with some mild confusion. Patients family members stated they received a call earlier in the day from an out of state family member who was talking to patient on the phone and she seemed confused. Once they arrived pt was sitting in her chair and was too weak to ambulate on her own. Her presentation in the ER was without any chest pain or shortness of breath, she denied recent illness, fever/chills, nausea/ vomiting. She had no appearance of CVA such as slurred speech, no facial droop, no headache or visual changes. Pt able to move all extremities but states she feels weak. GCS-15. She had been having cervical muscle spasm and a few weeks ago was on Valium. She was given 1 g of Rocephin in the ED and blood cultures were taken, started on IV fluids and was admitted to inpatient care. Yost catheter was placed upon admission last night, Lactic acid slightly elevated at 2.2. Pertinent ED findings Afebrile, heart rate 100, blood pressure 156/54, O2 sats 92% room air WBC, 18,000, neutrophilia 88% Troponin normal, CK-MB 6.3 (H) Urine, suggestive of UTI, Other pertinent diagnostics EKG, sinus rhythm, left axis deviation Chest x-ray, no acute process Update and overnight concerns, nurses reported bladder scan over 200 mL milliliters retention. Straight catheter to empty bladder. Maintained adequate blood pressure throughout the night, decreased IV fluids last night, potassium now corrected. Patient with left knee effusion and pain with difficulty bearing weight, no known ALVA or trauma. Primary problem Urinary tract infection/bacteremic sepsis, oxidase negative/highly suspect Escherichia offending organism Knee Effusion, left, Hypokalemia, now corrected Cnstipation with hemmoroids Deconditioned, Anemia, borderline macrocytic, no anisocytosis so likely not long-term evolution , likely some delusional effect along with stem-cell selection 2/2 sepsis Other chronic stable problems Hyperlipidemia Hypertension Obesity Cataract overall plan/Disposition; Knee aspiration, fluid analysis including Gram stain to lab. Bethanechol, low-dose trial, continue bladder scanning periodically, monitor output PT consultation, likely LTC DVT prophylaxis Left knee x-ray NSAIDs, limited GI stress prophylaxis Post void residuals Urine culture demonstrates oxidase negative which I suspect Escherichia coli as offending agent. Ongoing BC surveillance demonstrates anaerobic positive for gram-negative rods, continue with inpatient admission. qSOFA 0/3, closely monitor for any signs of sepsis complications and other organ dysfunction, monitor vital signs for increased respiratory rate or low blood pressure, report vomiting, tachypniec fever, developing shortness of breath or cough, decrease urinary output or altered mental status. Yost catheter discontinued however UTI/sepsis likely due to retention, trial of bethanechol today, will need PVR/urodynamic study. Continue ceftriaxone and and Zoysn until definitive organism manifestation. Reduce IV fluids today, if ongoing adequate intake will saline lock tomorrow. Repeat labs in morning.
--- NOTE | 2018-03-24 10:51 | PCM.PRNOTE ---
- Free Text/Narrative Note: Left knee aspiration procedure. Patient consented to procedure, left knee was prepped ChloraPrep using sterile technique, no touch approach. Retropatella lateral left knee approach, 0.5 lidocaine without epinephrine was used. approximately 30 mL of pleural fluid was aspirated, 20 mL initially of clear yellow synovial fluid aspirated followed by bloody aspiration. Synovial fluid sent to lab for fluid analysis including Gram stain and crystals. Pressure bandage applied. Patient tolerated procedure very well.
--- NOTE | 2018-03-24 11:09 | CR ---
[id number] RAD/RAD Knee Left 3V EXAM: RAD Knee Left 3V CLINICAL DATA: LEFT KNEE PAIN COMPARISON: NO PREVIOUS SIMILAR EXAM IS AVAILABLE. FINDINGS: Severe tricompartmental degenerative changes are seen with chondrocalcinosis and slight lateral subluxation of the patella. Osteophyte formation is identified. There is moderate loss of the femoral-tibial joint spaces and more severe loss of the femoral patellar joint space.. IMPRESSION: SIGNIFICANT DEGENERATIVE CHANGES. Jameson Dorsey MD 03/24/18 9543 Thank you for allowing us to participate in the care of your patient.
[2018-03-24] MEDS: Enoxaparin 40 MG/0.4 ML Syringe SUBCUT SCH (12:22)
[2018-03-24] MEDS: Hydrocortisone 2.5% Crm 30 GM Tube TOP SCH ×3 (12:23→20:21)
[2018-03-24] MEDS: Ibuprofen 600 MG Tab PO SCH ×2 (15:25→20:19)
[2018-03-24] MEDS: cefTRIAXone 2 GM Vial IVPUSH SCH (15:26)
[2018-03-25] MEDS: Piperacillin/Tazobactam/Dext 3.375 GM in Premix Bag 1 BAG IV SCH ×4 (04:19→22:15)
[2018-03-25] MEDS: Omeprazole 20 MG Cap.CR PO SCH (06:51)
[2018-03-25] MEDS: Acetaminophen 325 MG Tab PO PRN (06:58)
[2018-03-25 07:38] LABS: ANION GAP 1.1 mmol/L (5-15); CHLORIDE,CL 108 mmol/L (98-115); SODIUM,NA 130 mmol/L (136-145)
[2018-03-25] MEDS: Diclofenac Sodium 1% Gel 100 GM Tube TOP PRN ×2 (07:55→22:13)
[2018-03-25] MEDS: Docusate Sodium 100 MG Cap PO SCH (08:46)
[2018-03-25] MEDS ORDERED: Baclofen 10 MG Tab PO PRN (09:43)
[2018-03-25] MEDS: Ibuprofen 600 MG Tab PO SCH ×4 (09:50→22:09)
[2018-03-25] MEDS: Enoxaparin 40 MG/0.4 ML Syringe SUBCUT SCH (10:38)
[2018-03-25] MEDS: Potassium Bicarbonate/Potassium Chloride 25 MEQ Tab.Eff PO SCH (10:38)
[2018-03-25] MEDS: Hydrocortisone 2.5% Crm 30 GM Tube TOP SCH (11:02)
--- NOTE | 2018-03-25 11:03 | PCM.PN ---
- General Info Date of Service: 03/25/18 Subjective Update: Mrs. Solorzano reports ongoing overall improvement since admission, with resolution of confusion and malaise. Continues to have neck pain and spasm, improved with topical diclofenac. Previously using heating pad at home with improvement as well. L knee swelling improved. Declined physical therapy evaluation yesterday, but agrees to this today as she is very agreeable to therapy as she feels that getting stronger is important for her. Denies new concerns, including fever, chills, headache, chest pain, shortness of breath, cough, appetite change, abdominal pain, dysuria, or other joint pain. - Patient Data Vitals - Most Recent: Last Vital Signs Temp 36.6 C 03/25/18 10:55 Pulse 67 03/25/18 10:55 Resp 20 03/25/18 10:55 BP 140/64 03/25/18 10:55 Pulse Ox 96 03/25/18 10:55 Weight - Most Recent: 82.242 kg I&O - Last 24 Hours: Intake & Output 03/24/18 03/25/18 03/25/18 22:59 06:59 14:59 Intake Total 556 644 Output Total 100 1000 Balance 456 -356 Lab Results Last 24 Hours: Laboratory Results - last 24 hr 03/24/18 03/24/18 03/24/18 Range/Units 10:21 10:21 10:21 Sodium (136-145) mmol/L Potassium (3.3-5.3) mmol/L Chloride (98-115) mmol/L Carbon Dioxide (21.0-32.0) mmol/L Anion Gap (5-15) mmol/L BUN (6-25) mg/dL Creatinine (0.51-1.17) mg/dL Est Cr Clr Drug Dosing mL/min Estimated GFR (MDRD) mL/min Glucose (75 - 99) mg/dL Calcium (8.7-10.3) mg/dL Synovial Fluid Site Knee Synovial Source Synov fl Synovial Color Vivian Synovial Appearance Cloudy Synovial Volume 8.00 mL Synovial Tot Nuc Cell 3973 /cu mm Synovial Basophils 0 Synovial Eosinophils 0 Synovial Polynuclear % 3655 Synovial Lymphocytes % 0 Synovial Monocytes % 318 Synovial Other Cells % 0 Synovial Crystals see below Synovial Glucose 144 mg/dL Synovial Total Protein g/dL Synovial Uric Acid mg/dL Synovial Fluid Comment 01/03/24/18 03/24/18 Range/Units 10:21 10:21 10:21 Sodium (136-145) mmol/L Potassium (3.3-5.3) mmol/L Chloride (98-115) mmol/L Carbon Dioxide (21.0-32.0) mmol/L Anion Gap (5-15) mmol/L BUN (6-25) mg/dL Creatinine (0.51-1.17) mg/dL Est Cr Clr Drug Dosing mL/min Estimated GFR (MDRD) mL/min Glucose (75 - 99) mg/dL Calcium (8.7-10.3) mg/dL Synovial Fluid Site Synovial Source Synovial Color Synovial Appearance Synovial Volume mL Synovial Tot Nuc Cell /cu mm Synovial Basophils Synovial Eosinophils Synovial Polynuclear % Synovial Lymphocytes % Synovial Monocytes % Synovial Other Cells % Synovial Crystals Synovial Glucose mg/dL Synovial Total Protein 2.8 g/dL Synovial Uric Acid 3.3 mg/dL Synovial Fluid Comment see note 03/25/18 Range/Units 07:00 Sodium 130 L (136-145) mmol/L Potassium 3.8 (3.3-5.3) mmol/L Chloride 108 (98-115) mmol/L Carbon Dioxide 24.7 (21.0-32.0) mmol/L Anion Gap 1.1 L (5-15) mmol/L BUN 14 (6-25) mg/dL Creatinine 0.71 (0.51-1.17) mg/dL Est Cr Clr Drug Dosing 53.24 mL/min Estimated GFR (MDRD) > 60 mL/min Glucose 92 (75 - 99) mg/dL Calcium 8.5 L (8.7-10.3) mg/dL Synovial Fluid Site Synovial Source Synovial Color Synovial Appearance Synovial Volume mL Synovial Tot Nuc Cell /cu mm Synovial Basophils Synovial Eosinophils Synovial Polynuclear % Synovial Lymphocytes % Synovial Monocytes % Synovial Other Cells % Synovial Crystals Synovial Glucose mg/dL Synovial Total Protein g/dL Synovial Uric Acid mg/dL Synovial Fluid Comment Red Results Last 24 Hours: Microbiology 03/22/18 21:40 Aerobic Blood Culture - Preliminary Blood - Venous - Lab Draw NO GROWTH AFTER 2 DAYS Anaerobic Blood Culture - Preliminary NO GROWTH AFTER 2 DAYS 03/22/18 21:10 Aerobic Blood Culture - Preliminary Blood - Venous NO GROWTH AFTER 2 DAYS Anaerobic Blood Culture - Preliminary 03/24/18 10:10 Gram Stain - Final Synovial Med Orders - Current: Current Medications Acetaminophen (Tylenol) 650 mg PO Q4H PRN PRN Reason: Pain (Mild 1-3)/fever Last Admin: 03/25/18 06:58 Dose: 650 mg Baclofen (Lioresal) 10 mg PO TID PRN PRN Reason: Spasms Bethanechol Chloride (Urecholine) 5 mg PO TIDAC [facility] Last Admin: 03/25/18 10:38 Dose: 5 mg Ceftriaxone Sodium (Rocephin) 2 gm IVPUSH Q24H [facility] Last Admin: 03/24/18 15:26 Dose: 2 gm Diclofenac Sodium (Voltaren 1% Gel) 0.5 gm TOP TID PRN PRN Reason: cervical neck Last Admin: 03/25/18 07:55 Dose: 1 applic Enoxaparin Sodium (Lovenox) 40 mg SUBCUT Q24H [facility] Last Admin: 03/25/18 10:38 Dose: 40 mg Hydrocortisone (Proctozone-Hc 2.5% Crm) 0 gm TOP TID [facility] Last Admin: 03/24/18 20:21 Dose: 1 applic Piperacillin/Tazobactam/ (Dextrose 3.375 gm/ Premix) 50 mls @ 100 mls/hr IV Q6H [facility] Last Admin: 03/25/18 10:38 Dose: 100 mls/hr Sodium Chloride (Normal Saline) 1,000 mls @ 75 mls/hr IV ASDIRECTED [facility] Last Admin: 03/24/18 21:58 Dose: 75 mls/hr Ibuprofen (Motrin) 600 mg PO TID [facility] Last Admin: 03/25/18 09:50 Dose: 600 mg Magnesium Hydroxide (Milk Of Magnesia) 30 ml PO BID PRN PRN Reason: Constipation Last Admin: 03/24/18 09:37 Dose: 30 ml Omeprazole (Omeprazole) 20 mg PO ACBREAKFAST [facility] Last Admin: 03/25/18 06:51 Dose: 20 mg Potassium Bicarb/Potassium Chloride (Potassium Chloride, Effervescent) 25 meq PO DAILY [facility] Last Admin: 03/25/18 10:38 Dose: 25 meq Sodium Chloride (Saline Flush) 10 ml FLUSH Q8HR PRN PRN Reason: keep vein open Discontinued Medications Baclofen (Lioresal) 10 mg PO TID [facility] Bisacodyl (Dulcolax) 10 mg PO ONETIME ONE Stop: 03/23/18 20:15 Last Admin: 03/23/18 21:17 Dose: 10 mg Ceftriaxone Sodium (Rocephin) 1 gm IVPUSH Q24H [facility] Last Admin: 03/22/18 22:55 Dose: 1 gm Ceftriaxone Sodium (Rocephin) 2 gm IVPUSH Q24H [facility] Last Admin: 03/23/18 14:51 Dose: 2 gm Docusate Sodium (Colace) 100 mg PO DAILY [facility] Last Admin: 03/25/18 08:46 Dose: Not Given Sodium Chloride (Normal Saline) 500 mls @ 500 drops/hr IV .BOLUS [facility] Sodium Chloride (Normal Saline) 1,000 mls @ 125 mls/hr IV ASDIRECTED [facility] Last Admin: 03/23/18 14:50 Dose: 125 mls/hr Potassium Chloride 20 meq/ (Premix) 100 mls @ 50 mls/hr IV ONETIME ONE Stop: 03/23/18 14:27 Last Admin: 03/23/18 14:47 Dose: 50 mls/hr Piperacillin/Tazobactam/ (Dextrose 3.375 gm/ Premix) 50 mls @ 100 mls/hr IV Q6H [facility] Last Admin: 03/23/18 15:47 Dose: 100 mls/hr Lidocaine HCl (Xylocaine 1%) 10 ml INJECT ONETIME PRN PRN Reason: aspiration of L knee Stop: 03/24/18 14:00 Last Admin: 03/24/18 12:25 Dose: 3 ml Sodium Chloride (Saline Flush) 10 ml FLUSH Q8HR PRN PRN Reason: keep vein open - Exam Physical Findings Comments:: GENERAL: Well-appearing elderly white female sitting in bedside chair in no acute distress. HEENT: Normocephalic, atraumatic. Conjunctiva clear. Nares patent without discharge. Mucous membranes moist. NECK: Supple, no masses. CV: Regular rate and rhythm, no murmurs, rubs, or gallops. 2+ radial pulses. PULMONARY: Normal effort, clear to auscultation bilaterally, no wheezes, rales, or rhonchi. ABDOMEN: Positive bowel sounds, soft, nontender, nondistended. EXTREMITIES: No pedal edema, cyanosis, or clubbing. MUSCULOSKELETAL: L knee with mild-moderate effusion without erythema; ROM full; tenderness along medial joint line. R knee with healed scar; ROM full; nontender. Bilateral trapezius with spasm and generalized tenderness to palpation without trigger point or band. Neck ROM full. NEUROLOGICAL: No obvious deficits. DERMATOLOGIC: No rashes or suspicious lesions in exposed areas. PSYCHIATRIC: Alert, interactive, flat affect. - Problem List Review Problem List Initiated/Reviewed/Updated: Yes - My Orders Last 24 Hours: My Active Orders 03/25/18 09:43 Baclofen [Lioresal] 10 mg PO TID PRN - Plan Plan:: HPI summary: Mrs. Solorzano is an 87yoF with a history of HTN, HLD, and severe cervical spine degenerative changes who lives independently at home who was evaluated in the ED on 03/22/18 for generalized weakness and mild confusion. Patient's family members stated they received a call earlier in the day from an out of state family member who was talking to patient on the phone and she seemed confused. Once they arrived, she was sitting in her chair and was too weak to ambulate on her own. She had been having cervical muscle pain spasm over the prior few weeks and was on Valium and baclofen as well as referred to physical therapy. ED course: GCS-15 and nonfocal neurological examination. VS with pulse 100, but otherwise normal. Labs revealed WBC 18 with 88% neutrophils, lactic acid 2.2, UA suspicious for infection, and otherwise unremarkable CBC, CMP, troponin, EKG , and CXR. Blood cultures were obtained. She was given 1 g of ceftriaxone and, started on IV fluids. Yost catheter was placed. She was admitted for ongoing monitoring and management. Hospitalization problems: # Confusion, resolved # Bacteriuria/urinary tract infection, suspect E.coli # Bacteremia # Urinary retention # Anemia, likely dilutional # Hypokalemia, resolved # Constipation, resolved # Hemorrhoids # Osteoarthritis # Cervical spine degenerative disease # Neck muscle spasm # L knee osteoarthritis and associated effusion, aspirated fluid negative for evidence of infection or crystals # Debility/deconditioning Clinical status back to baseline. VS normal and labs improved. Urine culture and one of two blood cultures growing gram negative rods. Tolerating without catheter or elevated PVRs. - Continue Zosyn and ceftriaxone, awaiting culture identification and sensitivity with plan to then de-escalate to appropriate oral regimen for likely 14 day course due to bacteremia - Continue Bethanechol - Discontinue potassium supplementation - Continue Miralax prn and topical hydrocortisone NV prn - Continue diclofenac topical prn, acetaminophen prn, and ibuprofen scheduled TID along with omeprazole 20mg daily with plan to change to prn tomorrow - Restart baclofen prn - Topical heat to neck prn - Physical therapy Chronic, stable conditions: # HTN: Controlled here. Taking benazapril 10mg at home, which is currently being held without uncontrolled BPs noted, so may be able to be discontinued at discharge. # HLD: Last lipid panel 11/29/2017 with LDL 67. Taking gemfibrozil at home, which is currently being held and likely can be discontinued given age and lack of primary indication. Hospitalization details: # FEN: Continue NS at 75cc/hr. Electrolytes normal; recheck tomorrow. Regular diet. # PPX: Enoxaparin for DVT ppx. # Code status: FULL. # Emergency contact: Daughter, who was updated by social work staff. # Disposition: Patient and family desire placement at [facility] in [place] , with likely transfer on 03/28/18. In the meantime, if ongoing clinical improvement and culture identification/susceptibilities resulted, will transfer to swing bed status tomorrow with physical therapy.
[2018-03-25] MEDS: Sodium Chloride 0.9% 1,000 ML IV SCH (13:11)
[2018-03-25] MEDS ORDERED: Baclofen 10 MG Tab PO SCH (14:00)
[2018-03-25] MEDS: cefTRIAXone 2 GM Vial IVPUSH SCH (15:30)
[2018-03-25] MEDS ORDERED: Polyethylene Glycol 3350 Powder 17 GM Packet PO PRN (21:00)
[2018-03-25] MEDS ORDERED: Hydrocortisone 2.5% Crm 30 GM Tube TOP PRN (21:00)
[2018-03-26] MEDS: Piperacillin/Tazobactam/Dext 3.375 GM in Premix Bag 1 BAG IV SCH ×2 (04:12→09:49)
[2018-03-26] MEDS: Sodium Chloride 0.9% 1,000 ML IV SCH (04:17)
[2018-03-26] MEDS: Omeprazole 20 MG Cap.CR PO SCH (06:30)
[2018-03-26 08:01] LABS: ANION GAP 12.7 mmol/L (5-15); CHLORIDE,CL 104 mmol/L (98-115); SODIUM,NA 137 mmol/L (136-145)
[2018-03-26] MEDS: Ibuprofen 600 MG Tab PO SCH (08:21)
[2018-03-26] MEDS: Enoxaparin 40 MG/0.4 ML Syringe SUBCUT SCH (10:51)
[2018-03-26] MEDS ORDERED: Ibuprofen 600 MG Tab PO PRN (10:53)
[2018-03-26] MEDS ORDERED: Cephalexin 250 MG Cap PO SCH (11:00)
[2018-03-26] MEDS ORDERED: Doxylamine Succinate 25 MG Tab PO PRN (11:17)
--- NOTE | 2018-03-26 11:44 | PCM.DCSUM1 ---
Discharge Summary - Hospital Course Free Text/Narrative:: Date of admission: 03/22/18 Date of discharge: 03/26/18 Admission diagnoses: # Confusion # Bacteriuria # Urinary retention # Anemia # Constipation # Hemorrhoids # Cervical spine degenerative disease # Neck muscle spasm # Debility/deconditioning # HTN # HLD Discharge diagnoses: # Confusion, resolved # E.coli bacteriuria/urinary tract infection # Bacteremia, presumed E.coli # Urinary retention, resolved # Anemia, dilutional, stable # Hypokalemia, resolved # Constipation, resolved # Hemorrhoids # Osteoarthritis # Cervical spine degenerative disease # Neck muscle spasm # L knee osteoarthritis and associated effusion, # Debility/deconditioning # HTN # HLD 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 Solorzano is an 87yoF with a history of HTN, HLD, and severe cervical spine degenerative changes who lives independently at home who was evaluated in the ED on 03/22/18 for generalized weakness and mild confusion. Patient's family members stated they received a call earlier in the day from an out of state family member who was talking to patient on the phone and she seemed confused. Once they arrived, she was sitting in her chair and was too weak to ambulate on her own. She had been having cervical muscle pain spasm over the prior few weeks and was on Valium and baclofen as well as referred to physical therapy. In the ED, GCS=15 and evaluation noted nonfocal neurological examination. VS with pulse 100, but otherwise normal. Labs revealed WBC 18 with 88% neutrophils , lactic acid 2.2, UA suspicious for infection, and otherwise unremarkable CBC, CMP, troponin, EKG, and CXR. Blood cultures were obtained. She was given 1 g of ceftriaxone and, started on IV fluids. Yost catheter was placed. She was admitted for ongoing monitoring and management. Clinical status returned to baseline with IVF and antibiotics of ceftriaxone and Zosyn. VS normalized and labs improved, with resolution of leukocytosis and electrolytes for which she required 2 days of potassium supplementation. Urine culture grew pansensitive E.coli for which she was changed to oral cephalexin, for planned 14 day total course given one of two blood cultures also positive for gram negative rods, awaiting further speciation and sensitivities. Catheter was removed and she was started on Bethanechol for retention with good results. She also had successful treatment of constipation and hemorrhoids with stool softener and topical hydrocortisone. During her stay, she was noted to have a L knee effusion, which was aspirated and XR obtained, with results consistent with osteoarthritis. This in addition to her known severe cervical spine degenerative changes was treated with her home regimen of baclofen in addition to topical diclofenac prn, oral acetaminophen prn, and a 3 day burst of ibuprofen 600mg TID along with GI protection using omeprazole 20mg daily. Her home medications of benazepril and gemfibrozil were discontinued given lack of hypertension and lack of indication for primary prevention given her age and prior lipid panel. Due to ongoing concerns about widespread osteoarthritis and debility/ deconditioning, physical therapy was consulted and she plans to have ongoing therapy for strengthening at [facility] before hopeful return to home pending improvement. Given her acute condition resolution, she will be transferred to swing bed status awaiting transfer. New medications: - Cephalexin 500mg BID to end 04/05/18 - Bethanechol 10mg TID - Miralax 17g daily prn constipation - Topical hydrocortisone MS prn rectal irritation - Acetaminophen 650mg q6h prn pain - Ibuprofen 600mg TID prn pain - Diclofenac gel topical prn pain Continued home medications: - Baclofen 10mg TID prn muscle spasm - Doxylamine 25mg qHS - Multivitamin 1 tab daily Discontinued home medications: - Benazepril - Gemfibrozil - Discharge Data Discharge Date: 03/26/18 Discharge Disposition: DC/Tfer W/I Hosp To [place] [id number] Condition: Good - Patient Summary/Data Consults: Consultations 03/23/18 12:22 PT Evaluation and Treatment [CONS] Routine - Discharge Plan *PRESCRIPTION DRUG MONITORING PROGRAM REVIEWED*: Not Applicable *COPY OF PRESCRIPTION DRUG MONITORING REPORT IN PATIENT JACOB: Not Applicable Home Medications: Home Meds Benazepril [Lotensin] 10 mg PO DAILY 06/21/17 [History] Ca/D3/Mag#11/Zinc/Commissions Analyst/Erik/Bor [Caltrate 600+D Plus Tablet] 1 tab PO BIDMEALS [History] Gemfibrozil 600 mg PO DAILY 06/21/17 [History] Baclofen 10 mg PO TID 03/22/18 [History] Doxylamine Succinate [Unisom Sleep Aid] 25 mg PO BEDTIME 03/26/18 [History] - Discharge Summary/Plan Comment DC Time >30 min.: Yes - General Info Date of Service: 03/26/18 Subjective Update: Mrs. Solorzano reports feeling well today. Evaluated by physical therapy yesterday and has been ambulating with a walker. Plans to transfer to [facility] in [place], [place], next week. Has ongoing neck pain, improved from prior ; scheduled for cervical spine injection with Dr. Audnrea Perez next week for which she brought up family concerns due to a family member sustaining a stroke s/p chiropractic manipulation. Denies new concerns. - Patient Data Vitals - Most Recent: Last Vital Signs Temp 36.7 C 03/26/18 06:01 Pulse 67 03/26/18 06:01 Resp 18 03/26/18 06:01 BP 134/75 03/26/18 06:01 Pulse Ox 91 L 03/26/18 07:52 Weight - Most Recent: 82.242 kg I&O - Last 24 hours: Intake & Output 03/25/18 03/26/18 03/26/18 22:59 06:59 14:59 Intake Total 1026 752 375 Balance 1026 752 375 Lab Results - Last 24 hrs: Laboratory Results - last 24 hr 03/26/18 03/26/18 Range/Units 07:30 07:30 WBC 7.61 (5.00-10.00) 10^3/uL RBC 3.40 L (3.80-5.50) 10^6/uL Hgb 10.6 L (12.0-16.0) g/dL Hct 31.4 L (37.0-47.0) % MCV 92.4 H (82.0-92.0) fL MCH 31.2 H (27.0-31.0) pg MCHC 33.8 (32.0-36.0) g/dL RDW 13.6 (11.5-14.5) % Plt Count 177 (150-400) 10^3/uL MPV 8.9 (7.4-10.4) fL Immature Gran % (Auto) 1.2 (0.0-5.0) % Neut % (Auto) 73.9 H (50.0-70.0) % Lymph % (Auto) 13.4 L (20.0-40.0) % [place] % (Auto) 6.6 (2.0-8.0) % Eos % (Auto) 4.5 H (1.0-3.0) % Baso % (Auto) 0.4 (0.0-1.0) % Immature Gran # (Auto) 0.09 (0.00-0.50) 10^3/uL Neut # (Auto) 5.63 (2.50-7.00) 10^3/uL Lymph # (Auto) 1.02 (1.00-4.00) 10^3/uL Sumter # (Auto) 0.50 (0.10-0.80) 10^3/uL Eos # (Auto) 0.34 H (0.10-0.30) 10^3/uL Baso # (Auto) 0.03 (0.00-0.10) 10^3/uL Sodium 137 (136-145) mmol/L Potassium 4.0 (3.3-5.3) mmol/L Chloride 104 (98-115) mmol/L Carbon Dioxide 24.3 (21.0-32.0) mmol/L Anion Gap 12.7 (5-15) mmol/L BUN 11 (6-25) mg/dL Creatinine 0.72 (0.51-1.17) mg/dL Est Cr Clr Drug Dosing 52.50 mL/min Estimated GFR (MDRD) > 60 mL/min Glucose 92 (75 - 99) mg/dL Calcium 8.7 (8.7-10.3) mg/dL SUMIT Results - Last 24 hrs: Microbiology 03/22/18 21:00 Bacterial ID and Susceptibility - Final Urine - Catheterized Escherichia Coli 03/22/18 21:10 Bacterial Identification - Preliminary Blood - Arm, Right Gram Negative Rods 03/22/18 21:40 Aerobic Blood Culture - Preliminary Blood - Venous - Lab Draw NO GROWTH AFTER 3 DAYS Anaerobic Blood Culture - Preliminary NO GROWTH AFTER 3 DAYS 03/22/18 21:10 Aerobic Blood Culture - Preliminary Blood - Venous NO GROWTH AFTER 3 DAYS Anaerobic Blood Culture - Preliminary Med Orders - Current: Current Medications Acetaminophen (Tylenol) 650 mg PO Q4H PRN PRN Reason: Pain Last Admin: 03/25/18 06:58 Dose: 650 mg Baclofen (Lioresal) 10 mg PO TID PRN PRN Reason: Spasms Bethanechol Chloride (Urecholine) 5 mg PO TIDAC [facility] Last Admin: 03/26/18 11:17 Dose: 5 mg Cephalexin (Keflex) 500 mg PO BID [facility] Last Admin: 03/26/18 11:17 Dose: 500 mg Diclofenac Sodium (Voltaren 1% Gel) 0.5 gm TOP TID PRN PRN Reason: Pain Last Admin: 03/25/18 22:13 Dose: 1 applic Doxylamine Succinate (Unisom Sleep Aid) 25 mg PO BEDTIME PRN PRN Reason: Insomnia Hydrocortisone (Proctozone-Hc 2.5% Crm) 1 gm TOP TID PRN PRN Reason: Hemorrhoids Ibuprofen (Motrin) 600 mg PO TID PRN PRN Reason: Pain Melatonin (Melatonin) 3 mg PO BEDTIME [facility] Polyethylene Glycol (Miralax) 17 gm PO BEDTIME PRN PRN Reason: Constipation Discontinued Medications Baclofen (Lioresal) 10 mg PO TID [facility] Bisacodyl (Dulcolax) 10 mg PO ONETIME ONE Stop: 03/23/18 20:15 Last Admin: 03/23/18 21:17 Dose: 10 mg Ceftriaxone Sodium (Rocephin) 1 gm IVPUSH Q24H [facility] Last Admin: 03/22/18 22:55 Dose: 1 gm Ceftriaxone Sodium (Rocephin) 2 gm IVPUSH Q24H [facility] Last Admin: 03/23/18 14:51 Dose: 2 gm Ceftriaxone Sodium (Rocephin) 2 gm IVPUSH Q24H [facility] Last Admin: 03/25/18 15:30 Dose: 2 gm Docusate Sodium (Colace) 100 mg PO DAILY [facility] Last Admin: 03/25/18 08:46 Dose: Not Given Enoxaparin Sodium (Lovenox) 40 mg SUBCUT Q24H [facility] Last Admin: 03/26/18 10:51 Dose: Not Given Hydrocortisone (Proctozone-Hc 2.5% Crm) 0 gm TOP TID [facility] Last Admin: 03/25/18 11:02 Dose: 1 applic Sodium Chloride (Normal Saline) 500 mls @ 500 drops/hr IV .BOLUS [facility] Sodium Chloride (Normal Saline) 1,000 mls @ 125 mls/hr IV ASDIRECTED [facility] Last Admin: 03/23/18 14:50 Dose: 125 mls/hr Potassium Chloride 20 meq/ (Premix) 100 mls @ 50 mls/hr IV ONETIME ONE Stop: 03/23/18 14:27 Last Admin: 03/23/18 14:47 Dose: 50 mls/hr Piperacillin/Tazobactam/ (Dextrose 3.375 gm/ Premix) 50 mls @ 100 mls/hr IV Q6H [facility] Last Admin: 03/23/18 15:47 Dose: 100 mls/hr Piperacillin/Tazobactam/ (Dextrose 3.375 gm/ Premix) 50 mls @ 100 mls/hr IV Q6H [facility] Last Admin: 03/26/18 09:49 Dose: 100 mls/hr Sodium Chloride (Normal Saline) 1,000 mls @ 75 mls/hr IV ASDIRECTED [facility] Last Admin: 03/26/18 04:17 Dose: 75 mls/hr Ibuprofen (Motrin) 600 mg PO TID [facility] Last Admin: 03/25/18 14:16 Dose: Not Given Ibuprofen (Motrin) 600 mg PO TID [facility] Last Admin: 03/26/18 08:21 Dose: 600 mg Lidocaine HCl (Xylocaine 1%) 10 ml INJECT ONETIME PRN PRN Reason: aspiration of L knee Stop: 03/24/18 14:00 Last Admin: 03/24/18 12:25 Dose: 3 ml Magnesium Hydroxide (Milk Of Magnesia) 30 ml PO BID PRN PRN Reason: Constipation Last Admin: 03/24/18 09:37 Dose: 30 ml Omeprazole (Omeprazole) 20 mg PO ACBREAKFAST [facility] Last Admin: 03/26/18 06:30 Dose: 20 mg Potassium Bicarb/Potassium Chloride (Potassium Chloride, Effervescent) 25 meq PO DAILY [facility] Last Admin: 03/25/18 10:38 Dose: 25 meq Sodium Chloride (Saline Flush) 10 ml FLUSH Q8HR PRN PRN Reason: keep vein open Sodium Chloride (Saline Flush) 10 ml FLUSH Q8HR PRN PRN Reason: keep vein open - Exam Physical Findings Comments:: GENERAL: Well-appearing elderly white female sitting in bedside chair in no acute distress. HEENT: Normocephalic, atraumatic. Conjunctiva clear. Nares patent without discharge. Mucous membranes moist. NECK: Supple, no masses. CV: Regular rate and rhythm, no murmurs, rubs, or gallops. 2+ radial pulses. PULMONARY: Normal effort, clear to auscultation bilaterally, no wheezes, rales, or rhonchi. ABDOMEN: Positive bowel sounds, soft, nontender, nondistended. EXTREMITIES: No pedal edema, cyanosis, or clubbing. MUSCULOSKELETAL: L knee with mild-moderate effusion without erythema; ROM full; nontender. R knee with healed scar; ROM full; nontender. Bilateral trapezius with spasm and generalized tenderness to palpation without trigger point or band. Neck ROM full. NEUROLOGICAL: No obvious deficits. DERMATOLOGIC: No rashes or suspicious lesions in exposed areas. PSYCHIATRIC: Alert, interactive, normal affect.
[2018-03-26] MEDS ORDERED: Melatonin 3 MG Tab PO SCH (21:00)
== END 2018-03-26 11:30 | disposition swing bed (61) | DRG 690 ==
LOC: KA.ED 19:19 → KA.MS 21:20 → UNDOADMIN 21:55 → UNDODISIN 03-26 11:30
PROVIDERS: ADMIT Physician Assistant Medical; ATTEND Family Medicine
PROC: 0S9D3ZZ Drainage of Left Knee Joint, Percutaneous Approach (ICD-10-PCS; principal; 2018-03-24)
DX: N39.0 Urinary tract infection, site not specified (principal); R78.81 Bacteremia; B96.20 Unspecified Escherichia coli [E. coli] as the cause of diseases classified elsewhere; R41.0 Disorientation, unspecified; K59.00 Constipation, unspecified; K64.9 Unspecified hemorrhoids; D53.9 Nutritional anemia, unspecified; E87.6 Hypokalemia; M47.892 Other spondylosis, cervical region; M62.838 Other muscle spasm; R53.81 Other malaise; I10 Essential (primary) hypertension; E78.5 Hyperlipidemia, unspecified; M17.12 Unilateral primary osteoarthritis, left knee; E78.00 Pure hypercholesterolemia, unspecified; G89.29 Other chronic pain; M50.20 Other cervical disc displacement, unspecified cervical region; E66.9 Obesity, unspecified; E86.0 Dehydration; Z96.659 Presence of unspecified artificial knee joint; Z79.899 Other long term (current) drug therapy; Z98.49 Cataract extraction status, unspecified eye; Z87.442 Personal history of urinary calculi; Z85.42 Personal history of malignant neoplasm of other parts of uterus; Z90.49 Acquired absence of other specified parts of digestive tract; Z90.710 Acquired absence of both cervix and uterus
CPT/HCPCS: 36415; 51701; 70450; 71045; 73562-LT; 80048; 80053; 81001; 82550; 82553; 82945; 83605; 84157; 84484; 84550; 84560; 85025; 86140; 87040; 87077; 87086; 87088; 87186; 87205; 89051; 89060; 89240; 93005; 97110-GP; 97162-GP; 97530-GP; 99284; 99285; A9270-GY; J0696; J1650; J2001; J2543; J3480; J7030

== ENCOUNTER 2018-03-26 11:18 | Inpatient (IN) | payer MEDICARE, BC ==
[2018-03-26] MEDS ORDERED: Polyethylene Glycol 3350 Powder 17 GM Packet PO PRN (11:34)
[2018-03-26] MEDS ORDERED: Hydrocortisone 2.5% Crm 30 GM Tube TOP PRN (11:34)
--- NOTE | 2018-03-26 11:51 | PCM.HP ---
H&P History of Present Illness - General Date of Service: 03/26/18 Admit Problem/Dx: Admission Diagnosis/Problem Admission Diagnosis/Problem Leukocytosis - History of Present Illness Initial Comments - Free Text/Narative: Mrs. Solorzano feels well following acute hospitalization for UTI associated with confusion and weakness, but continues to have generalized weakness. She has been evaluated by physical therapy and deemed to benefit from skilled therapy. Plans to transfer to [facility] in [place], [place], next week. Has ongoing neck pain, improved from prior; scheduled for cervical spine injection with Dr. Aundrea Perez next week for which she brought up family concerns due to a family member sustaining a stroke s/p chiropractic manipulation. Her only other complaint this morning is recent insomnia, for which she takes Unisom on occasion at home with good results. She otherwise feels well; see ROS. - Related Data Allergies/Adverse Reactions: Allergies Allergy/AdvReac Type Severity Reaction Status Date / Time No Known Drug Allergies Allergy Cannot Verified 03/26/18 11:45 Remember Home Medications: Home Meds Benazepril [Lotensin] 10 mg PO DAILY 06/21/17 [History] Ca/D3/Mag#11/Zinc/Shearing Machine Tender/Erik/Bor [Caltrate 600+D Plus Tablet] 1 tab PO BIDMEALS [History] Gemfibrozil 600 mg PO DAILY 06/21/17 [History] Baclofen 10 mg PO TID 03/22/18 [History] Doxylamine Succinate [Unisom Sleep Aid] 25 mg PO BEDTIME 03/26/18 [History] Past Medical History HEENT History: Reports: Cataract, Impaired Vision Cardiovascular History: Reports: High Cholesterol, Hypertension Respiratory History: Reports: None Genitourinary History: Reports: Renal Calculus, Urinary Incontinence 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: Musculoskeletal History: Reports: Neck Pain, Chronic, Other (See Below) Other Musculoskeletal History: 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 Neurological History: Reports: None Hematologic History: Reports: Blood Transfusion(s) 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 - Infectious Disease History Other Infectious Disease History: unknown - Past Surgical History Head Surgeries/Procedures: Reports: None HEENT Surgical History: Reports: Cataract Surgery Cardiovascular Surgical History: Reports: None Respiratory Surgical History: Reports: None GI Surgical History: Reports: Appendectomy, Cholecystectomy Female Surgical History: Reports: Hysterectomy, Kidney stone extraction Musculoskeletal Surgical History: Reports: Knee Replacement Social & Family History - Family History Cardiac: Reports: CAD (mother) Oncologic: Reports: Lung (father) - Tobacco Use Smoking Status *Q: Never Smoker - Caffeine Use Caffeine Use: Reports: Coffee - Alcohol Use Alcohol Use History: No - Recreational Drug Use Recreational Drug Use: No - Living Situation & Occupation Living situation: Reports: H&P Review of Systems - Review of Systems: Review Of Systems: See Below General: Reports: Weakness. Denies: Fever, Chills HEENT: Denies: Dysphasia, Headaches, Sore Throat Pulmonary: Denies: Shortness of Breath, Wheezing, Cough Cardiovascular: Denies: Chest Pain, Edema, Lightheadedness Gastrointestinal: Denies: Abdominal Pain, Constipation, Diarrhea, Decreased Appetite, Nausea, Vomiting Genitourinary: Denies: Dysuria, Frequency, Burning Musculoskeletal: Reports: Neck Pain, Joint Swelling. Denies: Joint Pain Skin: Denies: Cyanosis, Bruising, Rash Psychiatric: Denies: Confusion, Depression, Anxiety Neurological: Reports: Weakness. Denies: Confusion, Dizziness, Headache, Numbness, Tingling Immunologic: Denies: Food Allergy, Environmental Allergy, Seasonal Allergy Exam - Exam Exam: See Below - Exam Physical Exam Comments:: GENERAL: Well-appearing elderly white female sitting in bedside chair in no acute distress. HEENT: Normocephalic, atraumatic. Conjunctiva clear. Nares patent without discharge. Mucous membranes moist. NECK: Supple, no masses. CV: Regular rate and rhythm, no murmurs, rubs, or gallops. 2+ radial pulses. PULMONARY: Normal effort, clear to auscultation bilaterally, no wheezes, rales, or rhonchi. ABDOMEN: Positive bowel sounds, soft, nontender, nondistended. EXTREMITIES: No pedal edema, cyanosis, or clubbing. MUSCULOSKELETAL: L knee with mild-moderate effusion without erythema; ROM full; nontender. R knee with healed scar; ROM full; nontender. Bilateral trapezius with spasm and generalized tenderness to palpation without trigger point or band. Neck ROM full. NEUROLOGICAL: No obvious deficits. DERMATOLOGIC: No rashes or suspicious lesions in exposed areas. PSYCHIATRIC: Alert, interactive, normal affect. Problem List Initiated/Reviewed/Updated: Yes Orders Last 24hrs: Active Orders 24 hr Category Date Time Status Patient Status [ADT] Routine ADT 03/26/18 11:34 Ordered Up With Assistance [RC] ASDIRECTED Care 03/26/18 11:34 Active Vital Signs [RC] DAILY Care 03/26/18 11:34 Active PT Evaluation and Treatment [CONS] Routine Cons 03/26/18 11:34 Active Regular Diet [DIET] Diet 03/26/18 Dinner Active Acetaminophen [Tylenol] Med 03/26/18 11:34 Ordered 650 mg PO Q4H PRN Baclofen [Lioresal] Med 03/26/18 11:34 Ordered 10 mg PO TID PRN Bethanechol [Urecholine] Med 03/26/18 17:00 Ordered 5 mg PO TIDAC Diclofenac Sodium [Voltaren 1% Gel] Med 03/26/18 11:34 Ordered 0.5 gm TOP TID PRN Doxylamine Succinate [Unisom Sleep Aid] Med 03/26/18 11:34 Ordered 25 mg PO BEDTIME PRN Hydrocortisone [Proctozone-HC 2.5% Crm] Med 03/26/18 11:34 Ordered 1 gm TOP TID PRN Ibuprofen [Motrin] Med 03/26/18 11:34 Ordered 600 mg PO TID PRN Melatonin Med 03/26/18 21:00 Ordered 3 mg PO BEDTIME Polyethylene Glycol 3350 [MiraLAX] Med 03/26/18 11:34 Ordered 17 gm PO BEDTIME PRN cephALEXin [Keflex] Med 03/26/18 21:00 Ordered 500 mg PO BID Code Status [Resuscitation Status] Routine Resus Stat 03/26/18 11:38 Ordered Medication Orders Acetaminophen (Tylenol) 650 mg PO Q4H PRN PRN Reason: Pain Baclofen (Lioresal) 10 mg PO TID PRN PRN Reason: Spasms Bethanechol Chloride (Urecholine) 5 mg PO TIDAC LIN Cephalexin (Keflex) 500 mg PO BID LIN Diclofenac Sodium (Voltaren 1% Gel) 0.5 gm TOP TID PRN PRN Reason: Pain Doxylamine Succinate (Unisom Sleep Aid) 25 mg PO BEDTIME PRN PRN Reason: Insomnia Hydrocortisone (Proctozone-Hc 2.5% Crm) 1 gm TOP TID PRN PRN Reason: Hemorrhoids Ibuprofen (Motrin) 600 mg PO TID PRN PRN Reason: Pain Melatonin (Melatonin) 3 mg PO BEDTIME LIN Polyethylene Glycol (Miralax) 17 gm PO BEDTIME PRN PRN Reason: Constipation Assessment/Plan Comment:: HPI summary/preceding acute hospital course: Mrs. Solorzano is an 87yoF with a history of HTN, HLD, and severe cervical spine degenerative changes who lives independently at home who was evaluated in the ED on 03/22/18 for generalized weakness and mild confusion. Patient's family members stated they received a call earlier in the day from an out of state family member who was talking to patient on the phone and she seemed confused. Once they arrived, she was sitting in her chair and was too weak to ambulate on her own. She had been having cervical muscle pain spasm over the prior few weeks and was on Valium and baclofen as well as referred to physical therapy. ED evaluation was notable for evidence of UTI and she was admitted for further work-up and management. Clinical status returned to baseline with IVF and antibiotics of ceftriaxone and Zosyn. VS normalized and labs improved, with resolution of leukocytosis and electrolytes for which she required 2 days of potassium supplementation. Urine culture grew pansensitive E.coli for which she was changed to oral cephalexin, for planned 14 day total course given one of two blood cultures also positive for gram negative rods, awaiting further speciation and sensitivities. Catheter was removed and she was started on Bethanechol for retention with good results. She also had successful treatment of constipation and hemorrhoids with stool softener and topical hydrocortisone. During her stay, she was noted to have a L knee effusion, which was aspirated and XR obtained, with results consistent with osteoarthritis. This in addition to her known severe cervical spine degenerative changes was treated with her home regimen of baclofen in addition to topical diclofenac prn, oral acetaminophen prn, and a 3 day burst of ibuprofen 600mg TID along with GI protection using omeprazole 20mg daily. Her home medications of benazepril and gemfibrozil were discontinued given lack of hypertension and lack of indication for primary prevention given her age and prior lipid panel. Due to ongoing concerns about widespread osteoarthritis and debility/ deconditioning, physical therapy was consulted and she plans to have ongoing therapy for strengthening at [facility] before hopeful return to home pending improvement. Given her acute condition resolution, she will be transferred to swing bed status awaiting transfer. Hospitalization problems: # Debility/deconditioning # E.coli bacteriuria/urinary tract infection and bacteremia # Urinary retention # Anemia, dilutional, stable # Constipation # Hemorrhoids # Osteoarthritis # Cervical spine degenerative disease # Neck muscle spasm # L knee osteoarthritis and associated effusion # Insomnia # HTN, controlled without medications # HLD, controlled without medications Plan: - Physical therapy Scheduled medications: - Cephalexin 500mg BID to end 04/05/18 - Bethanechol 10mg TID - Melatonin 3mg qHS - Multivitamin 1 tab daily - Ensure discontinuation of benazepril and gemfibrozil at discharge PRN medications: - Miralax 17g daily prn constipation - Topical hydrocortisone [place] prn rectal irritation - Acetaminophen 650mg q6h prn pain - Ibuprofen 600mg TID prn pain - Diclofenac gel topical prn pain - Baclofen 10mg TID prn muscle spasm - Doxylamine 25mg qHS prn insomnia Hospitalization details: # FEN: No IVF. Electrolytes normal. Regular diet. # PPX: Not indicated now that she is discharged from acute status. # Code status: FULL. # Emergency contact: Daughter, who was updated by nursing staff. # Disposition: Admit to swingbed status. Await transfer to [facility] in [place], [place], in the coming days. Plan for scheduled cervical spine injection with Dr. Aundrea Perez on 03/31/18; offered to discuss further with family regarding concerns.
[2018-03-26] MEDS: Acetaminophen 325 MG Tab PO PRN (16:33)
[2018-03-26] MEDS: Melatonin 3 MG Tab PO SCH (20:15)
[2018-03-26] MEDS: Cephalexin 250 MG Cap PO SCH (20:15)
[2018-03-27] MEDS: Diclofenac Sodium 1% Gel 100 GM Tube TOP PRN (00:02)
[2018-03-27] MEDS: Multivitamins with Minerals/Iron/Folic Acid/Lycopene Tab PO SCH (08:35)
[2018-03-27] MEDS: Cephalexin 250 MG Cap PO SCH ×2 (08:35→20:19)
[2018-03-27] MEDS: Melatonin 3 MG Tab PO SCH (20:19)
[2018-03-28] MEDS: Diclofenac Sodium 1% Gel 100 GM Tube TOP PRN ×3 (02:32→22:12)
[2018-03-28] MEDS: Acetaminophen 325 MG Tab PO PRN ×3 (06:37→22:11)
[2018-03-28] MEDS: Cephalexin 250 MG Cap PO SCH ×2 (08:10→20:23)
[2018-03-28] MEDS: Multivitamins with Minerals/Iron/Folic Acid/Lycopene Tab PO SCH (08:11)
[2018-03-28] MEDS: Benazepril 10 MG Tab PO SCH (08:11)
--- NOTE | 2018-03-28 10:36 | PCM.SN ---
- Free Text/Narrative Note: Was notified by health care social worker staff that patient and daughter wish for her to continue with skilled physical therapy care in swing bed status instead of going to [facility] in [place]. Continue with physical therapy and monitor progress. Benazepril restarted due to increasing BPs, so ensure continuation now at discharge.
[2018-03-28] MEDS: Melatonin 3 MG Tab PO SCH (20:23)
[2018-03-28] MEDS: Baclofen 10 MG Tab PO PRN (22:12)
[2018-03-29] MEDS: Benazepril 10 MG Tab PO SCH (08:57)
[2018-03-29] MEDS: Cephalexin 250 MG Cap PO SCH ×2 (08:57→20:03)
[2018-03-29] MEDS: Multivitamins with Minerals/Iron/Folic Acid/Lycopene Tab PO SCH (08:58)
[2018-03-29] MEDS: Ibuprofen 600 MG Tab PO PRN (20:03)
[2018-03-29] MEDS: Melatonin 3 MG Tab PO SCH (20:03)
[2018-03-29] MEDS: Baclofen 10 MG Tab PO PRN (20:03)
[2018-03-29] MEDS: Doxylamine Succinate 25 MG Tab PO PRN (22:29)
[2018-03-30] MEDS: Diclofenac Sodium 1% Gel 100 GM Tube TOP PRN ×2 (01:37→20:06)
[2018-03-30] MEDS: Acetaminophen 325 MG Tab PO PRN ×4 (01:38→20:06)
[2018-03-30] MEDS: Cephalexin 250 MG Cap PO SCH ×2 (08:14→20:06)
[2018-03-30] MEDS: Benazepril 10 MG Tab PO SCH (08:14)
[2018-03-30] MEDS: Multivitamins with Minerals/Iron/Folic Acid/Lycopene Tab PO SCH (08:14)
[2018-03-30] MEDS: Melatonin 3 MG Tab PO SCH (20:06)
[2018-03-30] MEDS: Doxylamine Succinate 25 MG Tab PO PRN (23:01)
[2018-03-31] MEDS ORDERED: diphenhydrAMINE 25 MG Cap PO ONE ×2 (02:55→22:47)
[2018-03-31] MEDS: Multivitamins with Minerals/Iron/Folic Acid/Lycopene Tab PO SCH (08:18)
[2018-03-31] MEDS: Benazepril 10 MG Tab PO SCH (08:18)
[2018-03-31] MEDS: Cephalexin 250 MG Cap PO SCH ×2 (08:22→20:05)
[2018-03-31] MEDS: Acetaminophen 325 MG Tab PO PRN ×3 (08:23→20:05)
[2018-03-31] MEDS ORDERED: predniSONE 10 MG Tab PO SCH (12:44)
--- NOTE | 2018-03-31 13:28 | PCM.PN ---
- General Info Date of Service: 03/31/18 Functional Status: Reports: Pain Controlled, Tolerating Diet, Ambulating, New Symptoms (rash to lower abd and upper left leg/thigh) - Review of Systems General: Reports: Fatigue. Denies: Fever, Malaise, Chills, Night Sweats HEENT: Reports: No Symptoms Pulmonary: Reports: No Symptoms Cardiovascular: Reports: Edema (left knee edema and ankle) Gastrointestinal: Reports: No Symptoms Genitourinary: Reports: No Symptoms Musculoskeletal: Reports: Joint Swelling Skin: Reports: Pruritis, Rash Neurological: Reports: Difficulty Walking, Weakness Psychiatric: Reports: No Symptoms - Patient Data Vitals - Most Recent: Last Vital Signs Temp 97.8 F 03/31/18 06:21 Pulse 78 03/31/18 06:21 Resp 18 03/31/18 06:21 BP 125/74 03/31/18 08:18 Pulse Ox 95 03/31/18 06:21 Weight - Most Recent: 187 lb 3 oz I&O - Last 24 Hours: Intake & Output 03/30/18 03/31/18 03/31/18 22:59 06:59 14:59 Intake Total 500 100 Balance 500 100 Med Orders - Current: Current Medications Acetaminophen (Tylenol) 650 mg PO Q4H PRN PRN Reason: Pain Last Admin: 03/31/18 08:23 Dose: 650 mg Baclofen (Lioresal) 10 mg PO TID PRN PRN Reason: Spasms Last Admin: 03/29/18 20:03 Dose: 10 mg Benazepril HCl (Lotensin) 10 mg PO DAILY [facility] Last Admin: 03/31/18 08:18 Dose: 10 mg Cephalexin (Keflex) 500 mg PO BID [facility] Stop: 04/05/18 21:00 Last Admin: 03/31/18 08:22 Dose: Not Given Cetirizine HCl (Zyrtec) 10 mg PO DAILY [facility] Stop: 04/05/18 23:59 Diclofenac Sodium (Voltaren 1% Gel) 0.5 gm TOP TID PRN PRN Reason: Pain Last Admin: 03/30/18 20:06 Dose: 1 applic Doxylamine Succinate (Unisom Sleep Aid) 25 mg PO BEDTIME PRN PRN Reason: Insomnia Last Admin: 03/30/18 23:01 Dose: 25 mg Hydrocortisone (Proctozone-Hc 2.5% Crm) 0 gm TOP TID PRN PRN Reason: Hemorrhoids Ibuprofen (Motrin) 600 mg PO TID PRN PRN Reason: Pain Last Admin: 03/29/18 20:03 Dose: 600 mg Melatonin (Melatonin) 3 mg PO BEDTIME [facility] Last Admin: 03/30/18 20:06 Dose: 3 mg Multivitamins/Minerals (Centrum) 1 tab PO DAILY [facility] Last Admin: 03/31/18 08:18 Dose: 1 tab Polyethylene Glycol (Miralax) 17 gm PO BEDTIME PRN PRN Reason: Constipation Discontinued Medications Bethanechol Chloride (Urecholine) 5 mg PO TIDAC [facility] Last Admin: 03/31/18 06:39 Dose: 5 mg Diphenhydramine HCl (Benadryl) 25 mg PO ONETIME ONE Stop: 03/31/18 02:56 Last Admin: 03/31/18 03:25 Dose: 25 mg Prednisone (Prednisone) 10 mg PO ONETIME [facility] Stop: 03/31/18 13:00 - Exam Quality Assessment: No: Supplemental Oxygen General: Alert, Oriented, Cooperative, No Acute Distress Lungs: Clear to Auscultation, Normal Respiratory Effort Cardiovascular: Regular Rate, Regular Rhythm GI/Abdominal Exam: Soft Back Exam: Normal Inspection. No: CVA Tenderness (L), CVA Tenderness (R) Extremities: Pedal Edema (1+ LLE) Skin: Rash (pink, light, maculopapular abd and left thigh) - Problem List Review Problem List Initiated/Reviewed/Updated: Yes - My Orders Last 24 Hours: My Active Orders 03/31/18 12:45 Cetirizine [ZyrTEC] 10 mg PO DAILY - Plan Plan:: HPI summary/preceding acute hospital course: Mrs. Solorzano is an 87yoF with a history of HTN, HLD, and severe cervical spine degenerative changes who lives independently at home who was evaluated in the ED on 03/22/18 for generalized weakness and mild confusion. Patient's family members stated they received a call earlier in the day from an out of state family member who was talking to patient on the phone and she seemed confused. Once they arrived, she was sitting in her chair and was too weak to ambulate on her own. She had been having cervical muscle pain spasm over the prior few weeks and was on Valium and baclofen as well as referred to physical therapy. ED evaluation was notable for evidence of UTI and she was admitted for further work-up and management. Clinical status returned to baseline with IVF and antibiotics of ceftriaxone and Zosyn. VS normalized and labs improved, with resolution of leukocytosis and electrolytes for which she required 2 days of potassium supplementation. Urine culture grew pansensitive E.coli for which she was changed to oral cephalexin, for planned 14 day total course given one of two blood cultures also positive for gram negative rods, awaiting further speciation and sensitivities. Catheter was removed and she was started on Bethanechol for retention with good results. She also had successful treatment of constipation and hemorrhoids with stool softener and topical hydrocortisone. During her stay, she was noted to have a L knee effusion, which was aspirated and XR obtained, with results consistent with osteoarthritis. This in addition to her known severe cervical spine degenerative changes was treated with her home regimen of baclofen in addition to topical diclofenac prn, oral acetaminophen prn, and a 3 day burst of ibuprofen 600mg TID along with GI protection using omeprazole 20mg daily. Her home medications of benazepril and gemfibrozil were discontinued given lack of hypertension and lack of indication for primary prevention given her age and prior lipid panel. Due to ongoing concerns about widespread osteoarthritis and debility/ deconditioning, physical therapy was consulted and she plans to have ongoing therapy for strengthening at [facility] before hopeful return to home pending improvement. Given her acute condition resolution, New concerns, Nurses reported rash to abd and left leg, overnight provider notified, H1 given Hospitalization problems: Cutaneous drug reaction; pink, light, maculopapular abd and left thigh, Prednisone 10mg today, add H2, cont cephalexin as recent sepsis and benefit, closely monitor # Debility/deconditioning # E.coli bacteriuria/urinary tract infection and bacteremia # Urinary retention # Anemia, dilutional, stable # Constipation # Hemorrhoids # Osteoarthritis # Cervical spine degenerative disease # Neck muscle spasm # L knee osteoarthritis and associated effusion # Insomnia # HTN, controlled without medications # HLD, controlled without medications Plan: - Physical therapy Scheduled medications: - Cephalexin 500mg BID to end 04/05/18 - DC Bethanechol monitor for retention hayden in light of receiving H1 due to rash - Melatonin 3mg qHS - Multivitamin 1 tab daily - Ensure discontinuation of benazepril and gemfibrozil at discharge PRN medications: - Miralax 17g daily prn constipation - Topical hydrocortisone OR prn rectal irritation - Acetaminophen 650mg q6h prn pain - Ibuprofen 600mg TID prn pain - Diclofenac gel topical prn pain - Baclofen 10mg TID prn muscle spasm - Doxylamine 25mg qHS prn insomnia Hospitalization details: # FEN: No IVF. Electrolytes normal. Regular diet. # PPX: Not indicated now that she is discharged from acute status. # Code status: FULL. # Emergency contact: Daughter, who was updated by nursing staff. # Disposition: Cont with swingbed status. Await transfer to [facility] in [place], in the coming days. Reschedule cervical spine injection with Dr. Aundrea Perez.
[2018-03-31] MEDS: Cetirizine 10 MG Tab PO SCH (13:30)
[2018-03-31] MEDS: Melatonin 3 MG Tab PO SCH (20:05)
[2018-03-31] MEDS: Diclofenac Sodium 1% Gel 100 GM Tube TOP PRN (20:06)
[2018-03-31] MEDS ORDERED: hydrOXYzine HCl 25 MG Tab PO PRN (22:47)
[2018-03-31] MEDS ORDERED: Triamcinolone Acetonide 0.1% Crm 15 GM Tube TOP PRN (22:50)
[2018-04-01] MEDS: Benazepril 10 MG Tab PO SCH (09:32)
[2018-04-01] MEDS: Cetirizine 10 MG Tab PO SCH (09:32)
[2018-04-01] MEDS: Multivitamins with Minerals/Iron/Folic Acid/Lycopene Tab PO SCH (09:32)
[2018-04-01] MEDS: Acetaminophen 325 MG Tab PO PRN ×2 (16:00→20:04)
[2018-04-01] MEDS: Melatonin 3 MG Tab PO SCH (20:04)
[2018-04-01] MEDS: Doxylamine Succinate 25 MG Tab PO PRN (21:19)
[2018-04-01] MEDS: Diclofenac Sodium 1% Gel 100 GM Tube TOP PRN (21:20)
[2018-04-02] MEDS: Acetaminophen 325 MG Tab PO PRN ×3 (04:31→17:04)
[2018-04-02] MEDS: Diclofenac Sodium 1% Gel 100 GM Tube TOP PRN ×2 (04:32→20:37)
[2018-04-02] MEDS: Cetirizine 10 MG Tab PO SCH (09:38)
[2018-04-02] MEDS: Benazepril 10 MG Tab PO SCH (09:38)
[2018-04-02] MEDS: Multivitamins with Minerals/Iron/Folic Acid/Lycopene Tab PO SCH (09:38)
[2018-04-02] MEDS: Melatonin 3 MG Tab PO SCH (20:37)
[2018-04-02] MEDS: Doxylamine Succinate 25 MG Tab PO PRN (20:37)
[2018-04-03] MEDS: Acetaminophen 325 MG Tab PO PRN ×2 (09:24→19:55)
[2018-04-03] MEDS: Benazepril 10 MG Tab PO SCH (09:25)
[2018-04-03] MEDS: Multivitamins with Minerals/Iron/Folic Acid/Lycopene Tab PO SCH (09:25)
[2018-04-03] MEDS: Cetirizine 10 MG Tab PO SCH (09:25)
[2018-04-03] MEDS: Melatonin 3 MG Tab PO SCH ×2 (19:54→20:02)
[2018-04-03] MEDS: Doxylamine Succinate 25 MG Tab PO PRN (19:54)
[2018-04-03] MEDS: Diclofenac Sodium 1% Gel 100 GM Tube TOP PRN (19:55)
[2018-04-04] MEDS: Acetaminophen 325 MG Tab PO PRN ×2 (00:16→20:09)
[2018-04-04] MEDS: Baclofen 10 MG Tab PO PRN ×2 (00:16→08:04)
[2018-04-04] MEDS: Ibuprofen 600 MG Tab PO PRN (07:23)
[2018-04-04] MEDS: Multivitamins with Minerals/Iron/Folic Acid/Lycopene Tab PO SCH (08:04)
[2018-04-04] MEDS: Cetirizine 10 MG Tab PO SCH (08:04)
[2018-04-04] MEDS: Benazepril 10 MG Tab PO SCH (08:04)
[2018-04-04] MEDS: Melatonin 3 MG Tab PO SCH (20:09)
[2018-04-04] MEDS: Diclofenac Sodium 1% Gel 100 GM Tube TOP PRN (20:10)
[2018-04-05] MEDS: Ibuprofen 600 MG Tab PO PRN ×2 (03:20→10:03)
[2018-04-05] MEDS: Benazepril 10 MG Tab PO SCH (08:02)
[2018-04-05] MEDS: Cetirizine 10 MG Tab PO SCH (08:02)
[2018-04-05] MEDS: Multivitamins with Minerals/Iron/Folic Acid/Lycopene Tab PO SCH (08:02)
--- NOTE | 2018-04-05 10:10 | PCM.DCSUM1 ---
Discharge Summary - Hospital Course Diagnosis: Stroke: No - Discharge Data Discharge Date: 04/05/18 Discharge Disposition: DC/Tfer W/I Hosp To Swing 61 Condition: Good - Patient Summary/Data Consults: Consultations 03/26/18 11:34 PT Evaluation and Treatment [CONS] Routine - Patient Instructions Activity: As Tolerated, Cough & Deep Breathe Driving: Do Not Drive Showering/Bathing: May Shower Notify Provider of: Fever, Increased Pain, Nausea and/or Vomiting - Discharge Plan *PRESCRIPTION DRUG MONITORING PROGRAM REVIEWED*: Not Applicable *COPY OF PRESCRIPTION DRUG MONITORING REPORT IN PATIENT JACOB: Not Applicable Home Medications: Home Meds Ca/D3/Mag#11/Zinc/News Copy Editor/Erik/Bor [Caltrate 600+D Plus Tablet] 1 tab PO BIDMEALS [History] Gemfibrozil 600 mg PO DAILY 06/21/17 [History] Baclofen 10 mg PO TID #90 04/05/18 [Rx] Benazepril [Lotensin] 10 mg PO DAILY #30 04/05/18 [Rx] Doxylamine Succinate [Unisom Sleep Aid] 25 mg PO BEDTIME #30 04/05/18 [Rx] Referrals: [facility] [Outside] - Discharge Summary/Plan Comment DC Time >30 min.: Yes Discharge Summary/Plan Comment: Final diagnosis Debility/deconditioning E.coli bacteriuria/urinary tract infection and bacteremia Urinary retention Anemia, dilutional, stable Cutaneous drug reaction to cephalexin Constipation Hemorrhoids Osteoarthritis Cervical spine degenerative disease Neck muscle spasm L knee osteoarthritis and associated effusion, improved after aspiration Insomnia HTN, controlled without medications HLD, controlled without medications History summary Mrs Solorzano is an 87yoF with a history of HTN, HLD, and severe cervical spine degenerative changes who lives independently at home who was evaluated in the ED on 03/22/18 for generalized weakness and mild confusion. Patient's family members stated they received a call earlier in the day from an out of state family member who was talking to patient on the phone and she seemed confused. Once they arrived, she was sitting in her chair and was too weak to ambulate on her own. She had been having cervical muscle pain spasm over the prior few weeks and was on Valium and baclofen as well as referred to physical therapy. ED evaluation was notable for evidence of UTI and she was admitted for further work-up and management. Clinical status returned to baseline with IVF and antibiotics of ceftriaxone and Zosyn. VS normalized and labs improved, with resolution of leukocytosis and electrolytes for which she required 2 days of potassium supplementation. Urine culture grew pansensitive E.coli for which she was changed to oral cephalexin, for planned 14 day total course given one of two blood cultures also positive for gram negative rods, awaiting further speciation and sensitivities. Catheter was removed and she was started on Bethanechol for retention with good results, Bethenacol was eventually discontinued. successful treatment of constipation and hemorrhoids with stool softener and topical hydrocortisone. During her stay, she was noted to have a L knee effusion, which was aspirated and XR obtained, with results consistent with osteoarthritis. This in addition to her known severe cervical spine degenerative changes was treated with her home regimen of baclofen in addition to topical diclofenac prn, oral acetaminophen prn, and a 3 day burst of ibuprofen 600mg TID along with GI protection using omeprazole 20mg daily. Gemfibrozil were discontinued given lack of hypertension and lack of indication for primary prevention given her age and prior lipid panel. She was eventually admitted into swing bed therapy and did quite well with physical therapy. During her swing bed course, it appeared she had a cutaneous drug reaction to beta-lactamases antibiotic which was was eventually discontinued--however not type I. She responded with prednisone, H1 and H2 blockers--her rash was to her upper legs and lower abdomen. She had no respiratory compromise. Medication changes/adjustments upon discharge Discontinue gemfibrozil Disposition Patient will be transferred to [address] [place] [id number]. RINA Nelson, she will receive PT OT. Referrals Appointment Marlena Guillaume for steroid injection cervical neck, all clinic for verification of date and time - General Info Functional Status: Reports: Pain Controlled (Some residual pain in left knee), Tolerating Diet, Ambulating, Incentive Spirometry - Review of Systems General: Reports: No Symptoms HEENT: Reports: No Symptoms Pulmonary: Reports: No Symptoms Cardiovascular: Reports: No Symptoms Gastrointestinal: Reports: No Symptoms Genitourinary: Denies: Incontinence Musculoskeletal: Reports: Joint Swelling (1+ pitting edema left lower ankle and generalized mild edema to left knee) Skin: Denies: Rash Neurological: Denies: Confusion - Patient Data Vitals - Most Recent: Last Vital Signs Temp 97.7 F 04/05/18 06:14 Pulse 73 04/05/18 06:14 Resp 18 04/05/18 06:14 BP 114/68 04/05/18 08:02 Pulse Ox 91 L 04/05/18 06:14 Weight - Most Recent: 187 lb 3 oz I&O - Last 24 hours: Intake & Output 04/04/18 04/05/18 04/05/18 22:59 06:59 14:59 Intake Total 390 150 Balance 390 150 Med Orders - Current: Current Medications Acetaminophen (Tylenol) 650 mg PO Q4H PRN PRN Reason: Pain Last Admin: 04/04/18 20:09 Dose: 650 mg Baclofen (Lioresal) 10 mg PO TID PRN PRN Reason: Spasms Last Admin: 04/04/18 08:04 Dose: 10 mg Benazepril HCl (Lotensin) 10 mg PO DAILY [facility] Last Admin: 04/05/18 08:02 Dose: 10 mg Cetirizine HCl (Zyrtec) 10 mg PO DAILY [facility] Stop: 04/05/18 23:59 Last Admin: 04/05/18 08:02 Dose: 10 mg Diclofenac Sodium (Voltaren 1% Gel) 0.5 gm TOP TID PRN PRN Reason: Pain Last Admin: 04/04/18 20:10 Dose: 1 applic Doxylamine Succinate (Unisom Sleep Aid) 25 mg PO BEDTIME PRN PRN Reason: Insomnia Last Admin: 04/03/18 19:54 Dose: 25 mg Hydrocortisone (Proctozone-Hc 2.5% Crm) 0 gm TOP TID PRN PRN Reason: Hemorrhoids Hydroxyzine HCl (Atarax) 25 mg PO Q4H PRN PRN Reason: Itching Ibuprofen (Motrin) 600 mg PO TID PRN PRN Reason: Pain Last Admin: 04/05/18 03:20 Dose: 600 mg Melatonin (Melatonin) 3 mg PO BEDTIME [facility] Last Admin: 04/04/18 20:09 Dose: 3 mg Multivitamins/Minerals (Centrum) 1 tab PO DAILY [facility] Last Admin: 04/05/18 08:02 Dose: 1 tab Polyethylene Glycol (Miralax) 17 gm PO BEDTIME PRN PRN Reason: Constipation Triamcinolone Acetonide (Triamcinolone Acetonide 0.1% Crm) 0 gm TOP BID PRN PRN Reason: Itching Last Admin: 03/31/18 23:09 Dose: 1 applic Discontinued Medications Bethanechol Chloride (Urecholine) 5 mg PO TIDAC [facility] Last Admin: 03/31/18 16:18 Dose: Not Given Cephalexin (Keflex) 500 mg PO BID [facility] Stop: 04/05/18 21:00 Last Admin: 03/31/18 20:05 Dose: 500 mg Diphenhydramine HCl (Benadryl) 25 mg PO ONETIME ONE Stop: 03/31/18 02:56 Last Admin: 03/31/18 03:25 Dose: 25 mg Diphenhydramine HCl (Benadryl) 25 mg PO ONETIME ONE Stop: 03/31/18 22:48 Last Admin: 03/31/18 23:08 Dose: 25 mg Prednisone (Prednisone) 10 mg PO ONETIME [facility] Stop: 03/31/18 13:00 Last Admin: 03/31/18 13:30 Dose: 10 mg - Exam Quality Assessment: Denies: Supplemental Oxygen General: Reports: Alert, Oriented Neck: Reports: Supple Lungs: Reports: Clear to Auscultation, Normal Respiratory Effort Cardiovascular: Reports: Regular Rate, Regular Rhythm Extremities: Pedal Edema (1+ pitting edema left ankle,) Skin: Reports: Warm, Dry, Intact Psy/Mental Status: Reports: Alert, Normal Affect, Normal Mood
== END 2018-04-05 11:27 | DRG 947 ==
LOC: KA.MS 11:30
PROVIDERS: ADMIT Family Medicine; ATTEND Family Medicine
DX: R53.81 Other malaise (principal); A41.9 Sepsis, unspecified organism; N39.0 Urinary tract infection, site not specified; R53.1 Weakness; G89.29 Other chronic pain; R33.9 Retention of urine, unspecified; D64.9 Anemia, unspecified; K59.00 Constipation, unspecified; K64.9 Unspecified hemorrhoids; M19.90 Unspecified osteoarthritis, unspecified site; G47.00 Insomnia, unspecified; I10 Essential (primary) hypertension; E78.5 Hyperlipidemia, unspecified; H54.7 Unspecified visual loss; E78.00 Pure hypercholesterolemia, unspecified; R32 Unspecified urinary incontinence; Z87.442 Personal history of urinary calculi; Z90.49 Acquired absence of other specified parts of digestive tract; Z79.899 Other long term (current) drug therapy; Z90.710 Acquired absence of both cervix and uterus; Z96.659 Presence of unspecified artificial knee joint; M50.30 Other cervical disc degeneration, unspecified cervical region; B96.20 Unspecified Escherichia coli [E. coli] as the cause of diseases classified elsewhere; M62.838 Other muscle spasm
CPT/HCPCS: 97035-GP; 97110-GP; 97112-GP; 97162-GP; A9270-GY; G0283-GP

== ENCOUNTER 2018-04-19 12:52 | Inpatient (IN) | payer MEDICARE, BC ==
--- NOTE | 2018-04-19 14:20 | CR ---
[id number] RAD/RAD Chest PA And Lateral EXAM: FRONTAL AND LATERAL CHEST INDICATION: Leukocytosis. COMPARISON: March 22, 2017. DISCUSSION: Lungs are mildly hypoinflated, but clear. IMPRESSION: 1. No acute findings. Dong Lei MD 04/19/18 1418 Thank you for allowing us to participate in the care of your patient.
[2018-04-19] MEDS: Sodium Chloride 0.9% 1,000 ML IV SCH (14:48)
[2018-04-19] MEDS: Piperacillin/Tazobactam/Dext 50 ML IV SCH ×2 (15:34→20:28)
[2018-04-19] MEDS ORDERED: Acetaminophen 325 MG Tab PO PRN (19:35)
[2018-04-19] MEDS ORDERED: traMADol 50 MG Tab PO PRN (19:35)
[2018-04-19] MEDS ORDERED: Sodium Chloride 0.9% 1,000 ML IV ONE (19:42)
[2018-04-19] MEDS: Baclofen 10 MG Tab PO SCH (20:13)
[2018-04-19] MEDS: Doxylamine Succinate 25 MG Tab PO SCH (20:13)
[2018-04-19] MEDS: Cetirizine 10 MG Tab PO SCH ×2 (20:13→21:31)
[2018-04-19] MEDS: Ibuprofen 200 MG Tab PO PRN (20:13)
[2018-04-19] MEDS: cefTRIAXone 2 GM Vial IVPUSH SCH (20:15)
[2018-04-20] MEDS: Piperacillin/Tazobactam/Dext 50 ML IV SCH ×2 (02:03→08:02)
[2018-04-20] MEDS: Baclofen 10 MG Tab PO SCH ×3 (08:02→21:16)
[2018-04-20] MEDS: Sodium Chloride 0.9% 1,000 ML IV SCH (10:41)
--- NOTE | 2018-04-20 11:57 | PCM.PN ---
- General Info Date of Service: 04/20/18 Functional Status: Reports: Pain Controlled, Tolerating Diet, Urinating. Denies : Ambulating, New Symptoms - Review of Systems General: Reports: Weakness, Malaise. Denies: Fever HEENT: Reports: No Symptoms Pulmonary: Denies: Shortness of Breath, Cough, Sputum, Wheezing Cardiovascular: Reports: No Symptoms Gastrointestinal: Denies: Abdominal Pain, Constipation, Decreased Appetite, Diarrhea, Difficulty Swallowing, Nausea Genitourinary: Reports: Incontinence. Denies: Dysuria, Burning, Pain, Urgency, Retention Musculoskeletal: Denies: Neck Pain Skin: Reports: Dryness Neurological: Reports: Difficulty Walking. Denies: Confusion, Dizziness, Headache, Numbness, Tingling, Change in Speech Psychiatric: Reports: No Symptoms - Patient Data Vitals - Most Recent: Last Vital Signs Temp 97.7 F 04/20/18 11:00 Pulse 62 04/20/18 11:00 Resp 16 04/20/18 11:00 BP 92/54 L 04/20/18 11:00 Pulse Ox 93 L 04/20/18 08:35 Weight - Most Recent: 185 lb 9.6 oz I&O - Last 24 Hours: Intake & Output 04/19/18 04/20/18 04/20/18 22:59 06:59 14:59 Intake Total 400 1529 Output Total 500 500 Balance -100 1029 Lab Results Last 24 Hours: Laboratory Results - last 24 hr 04/19/18 04/19/18 04/20/18 Range/Units 13:36 13:36 07:15 WBC 17.11 H (5.00-10.00) 10^3/uL RBC 3.39 L (3.80-5.50) 10^6/uL Hgb 10.0 L (12.0-16.0) g/dL Hct 31.1 L (37.0-47.0) % MCV 91.7 (82.0-92.0) fL MCH 29.5 (27.0-31.0) pg MCHC 32.2 (32.0-36.0) g/dL RDW 14.7 H (11.5-14.5) % Plt Count 230 (150-400) 10^3/uL MPV 9.1 (7.4-10.4) fL Immature Gran % (Auto) 1.2 (0.0-5.0) % Neut % (Auto) 86.4 H (50.0-70.0) % Lymph % (Auto) 7.7 L (20.0-40.0) % [place] % (Auto) 4.1 (2.0-8.0) % Eos % (Auto) 0.5 L (1.0-3.0) % Baso % (Auto) 0.1 (0.0-1.0) % Immature Gran # (Auto) 0.21 (0.00-0.50) 10^3/uL Neut # (Auto) 14.78 H (2.50-7.00) 10^3/uL Lymph # (Auto) 1.32 (1.00-4.00) 10^3/uL [place] # (Auto) 0.70 (0.10-0.80) 10^3/uL Eos # (Auto) 0.08 L (0.10-0.30) 10^3/uL Baso # (Auto) 0.02 (0.00-0.10) 10^3/uL Lactic Acid 1.5 (0.4-2.0) mmol/L Troponin I < 0.04 (0.00-0.070) ng/mL Med Orders - Current: Current Medications Acetaminophen (Tylenol) 650 mg PO Q4H PRN PRN Reason: Pain Baclofen (Lioresal) 10 mg PO TID [facility] Last Admin: 04/20/18 08:02 Dose: 10 mg Ceftriaxone Sodium (Rocephin) 2 gm IVPUSH Q24H [facility] Last Admin: 04/19/18 20:15 Dose: 2 gm Cetirizine HCl (Zyrtec) 10 mg PO BEDTIME [facility] Last Admin: 04/19/18 21:31 Dose: 10 mg Doxylamine Succinate (Unisom Sleep Aid) 25 mg PO BEDTIME [facility] Last Admin: 04/19/18 20:13 Dose: 25 mg Sodium Chloride (Normal Saline) 1,000 mls @ 70 mls/hr IV ASDIRECTED [facility] Last Admin: 04/20/18 10:41 Dose: 70 mls/hr Piperacillin/Tazobactam/Dextrose (Zosyn In Dextrose Iso-Osmotic 3.375 Gm) 50 mls @ 100 mls/hr IV Q6H [facility] Last Admin: 04/20/18 08:02 Dose: 100 mls/hr Ibuprofen (Motrin) 600 mg PO BID PRN PRN Reason: Pain Last Admin: 04/19/18 20:13 Dose: 600 mg Tramadol HCl (Ultram) 50 mg PO TID PRN PRN Reason: Pain Discontinued Medications Sodium Chloride (Normal Saline) 1,000 mls @ 250 mls/hr IV .BOLUS ONE Stop: 04/19/18 23:41 Last Admin: 04/19/18 21:31 Dose: 250 mls/hr - Exam Quality Assessment: Supplemental Oxygen General: Alert, Oriented, Cooperative, No Acute Distress Neck: Supple Lungs: Clear to Auscultation, Normal Respiratory Effort Cardiovascular: Regular Rate, Regular Rhythm GI/Abdominal Exam: Soft, Non-Tender, No Distention (Female) Exam: Deferred Back Exam: No: CVA Tenderness (L), CVA Tenderness (R) Extremities: No Pedal Edema, Pedal Edema (2+ left lower extremity) Peripheral Pulses: 2+: Radial (R), Femoral (L) Skin: Moist Neurological: No New Focal Deficit Psy/Mental Status: Alert, Normal Affect, Normal Mood, Other (Flat affect) - Problem List Review Problem List Initiated/Reviewed/Updated: Yes - My Orders Last 24 Hours: My Active Orders 04/19/18 13:00 Patient Status [ADT] Routine 04/19/18 13:07 Oxygen Therapy [RC] PRN Up to Chair [RC] ASDIRECTED VTE/DVT Education [RC] PER UNIT ROUTINE Vital Signs [RC] 0300,0700,1100,1500,1900,2300 Blood Culture x2 Reflex Set [OM.PC] Stat Resuscitation Status Routine 04/19/18 13:09 Intake and Output [RC] 1400,2200,0600 04/19/18 13:15 Sodium Chloride 0.9% [Normal Saline] 1,000 ml IV ASDIRECTED 04/19/18 13:36 CULTURE BLOOD [BC] Stat 04/19/18 14:00 Piperacillin/Tazobactam/Dext [Zosyn in Dextrose Iso-Osmotic 3.375 GM] 50 ml IV Q6H 04/19/18 14:35 CULTURE BLOOD [BC] Stat 04/19/18 19:35 Acetaminophen [Tylenol] 650 mg PO Q4H PRN Ibuprofen [Motrin] 600 mg PO BID PRN traMADol [Ultram] 50 mg PO TID PRN 04/19/18 19:36 Cetirizine [ZyrTEC] 10 mg PO BEDTIME 04/19/18 19:56 Incentive Spirometry [RT Incentive Spirometry] [RC] Q1HWA 04/19/18 20:00 cefTRIAXone [Rocephin] 2 gm IVPUSH Q24H 04/19/18 21:00 Baclofen [Lioresal] 10 mg PO TID Doxylamine Succinate [Unisom Sleep Aid] 25 mg PO BEDTIME 04/19/18 Lunch Regular Diet [DIET] - Plan Plan:: Brief history Kate is a 87-year-old female who is a resident of a local long-term care center was seen and evaluated the [facility] yesterday when she was initially brought in for routine left knee aspiration. Upon the patient arriving from the [facility] she and her family state over the past 2 days prior to admission she had been feeling ill and not herself. Patient and family members complaining of her being malaise and generalized not feeling well, decreased appetite decrease activity with some visual hallucinations transiently at nighttime. The time she had no shortness of breath however her last admission here just a few weeks ago she did require 1 L oxygen at night. She denies shortness of breath, no cough, no flank pain rigors or chills or fevers however was admitted for pyelonephritis with sepsis in [facility] 2 or 3 weeks ago. She recently received a steroid injection in her cervical spine which went well and she has significant relief from this. 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 I seen here at the [facility] day of admission her left knee was slightly warm to touch and edematous. Labs at the [facility] was concerning for sepsis due to elevated white count and neutrophilia she was admitted for further workup and IV hydration and antibiotics Pertinent clinic findings Afebrile, BP 102/60 (low for her) WBC, 29,000, neutrophilia 90% Urine, suggestive of UTI, Crystals synovial fluid left knee Update, white count improving, normal lactic acid, left knee synovial fluid analysis negative for organism. 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 Increase Tylenol from as needed to scheduled DVT prophylaxis; LMWH Reg diet Chronic stable conditions Lipidemia Hypertension Obesity Cataract Disposition/Disposition; continue with inpatient acute stay, continue IV antibiotics, seems to be responding to antibiotics, BC surveillance, continue ongoing monitoring for signs of sepsis, lactic acid normal, monitor BP carefully , monitor intake and output and for any altered mental status. Suspect high urinary residuals and may need PVRs last ultrasound. Daily Lactobacilis to help prevent UTI may be option. In the meantime we'll bladder scan her post void, Change acetaminophen to scheduled due to her inflammatory arthritis/pseudogout.
[2018-04-20] MEDS ORDERED: methylPREDNISolone Sodium Succinate 125 MG/2 ML SDV IVPUSH ONE (14:00)
[2018-04-20] MEDS ORDERED: diphenhydrAMINE 25 MG Cap PO ONE ×2 (14:00→21:13)
[2018-04-20] MEDS: Acetaminophen 325 MG Tab PO SCH ×2 (14:01→22:14)
[2018-04-20] MEDS: Cetirizine 10 MG Tab PO SCH (21:16)
[2018-04-20] MEDS: Doxylamine Succinate 25 MG Tab PO SCH (21:16)
[2018-04-20] MEDS: cefTRIAXone 2 GM Vial IVPUSH SCH (21:17)
[2018-04-20] MEDS: Hydrocortisone 1% Crm 30 GM Tube TOP PRN (21:26)
[2018-04-20] MEDS: Diclofenac Sodium 1% Gel 100 GM Tube TOP PRN (21:28)
[2018-04-21] MEDS: Sodium Chloride 0.9% 1,000 ML IV SCH (01:01)
[2018-04-21] MEDS: Acetaminophen 325 MG Tab PO SCH ×3 (06:03→23:55)
[2018-04-21] MEDS: Baclofen 10 MG Tab PO SCH ×3 (08:09→20:52)
[2018-04-21] MEDS: Diclofenac Sodium 1% Gel 100 GM Tube TOP PRN ×2 (08:09→20:57)
[2018-04-21 08:11] LABS: ANION GAP 13.3 mmol/L (5-15); CHLORIDE,CL 106 mmol/L (98-115); SODIUM,NA 140 mmol/L (136-145)
--- NOTE | 2018-04-21 10:08 | PCM.PN ---
- General Info Date of Service: 04/21/18 Functional Status: Reports: Pain Controlled, Tolerating Diet. Denies: Ambulating, Incentive Spirometry (Patient stated she has not used her incentive spirometer all day yesterday) - Review of Systems General: Reports: Malaise. Denies: Fever, Weakness, Chills HEENT: Reports: No Symptoms Pulmonary: Reports: No Symptoms Cardiovascular: Reports: Edema (Slight edema left ankle) Gastrointestinal: Reports: Constipation Genitourinary: Reports: Incontinence, Retention Musculoskeletal: Reports: Other (Slight left knee pain seems to be improving) Skin: Reports: Dryness Neurological: Denies: Confusion (Stated mildly confused last night after giving Benadryl due to subcutaneous reaction to drugs) Psychiatric: Reports: No Symptoms - Patient Data Vitals - Most Recent: Last Vital Signs Temp 98.2 F 04/21/18 06:27 Pulse 64 04/21/18 08:55 Resp 20 04/21/18 06:27 BP 113/57 L 04/21/18 06:27 Pulse Ox 95 04/21/18 08:55 Weight - Most Recent: 185 lb 9.6 oz I&O - Last 24 Hours: Intake & Output 04/20/18 04/21/18 04/21/18 22:59 06:59 14:59 Intake Total 830 673 Output Total 300 Balance 530 673 Lab Results Last 24 Hours: Laboratory Results - last 24 hr 04/21/18 04/21/18 Range/Units 07:15 07:15 WBC 16.35 H (5.00-10.00) 10^3/uL RBC 3.28 L (3.80-5.50) 10^6/uL Hgb 9.6 L (12.0-16.0) g/dL Hct 30.2 L (37.0-47.0) % MCV 92.1 H (82.0-92.0) fL MCH 29.3 (27.0-31.0) pg MCHC 31.8 L (32.0-36.0) g/dL RDW 14.6 H (11.5-14.5) % Plt Count 239 (150-400) 10^3/uL MPV 9.6 (7.4-10.4) fL Immature Gran % (Auto) 1.2 (0.0-5.0) % Neut % (Auto) 83.4 H (50.0-70.0) % Lymph % (Auto) 9.8 L (20.0-40.0) % [place] % (Auto) 4.5 (2.0-8.0) % Eos % (Auto) 0.9 L (1.0-3.0) % Baso % (Auto) 0.2 (0.0-1.0) % Immature Gran # (Auto) 0.20 (0.00-0.50) 10^3/uL Neut # (Auto) 13.63 H (2.50-7.00) 10^3/uL Lymph # (Auto) 1.61 (1.00-4.00) 10^3/uL [place] # (Auto) 0.73 (0.10-0.80) 10^3/uL Eos # (Auto) 0.15 (0.10-0.30) 10^3/uL Baso # (Auto) 0.03 (0.00-0.10) 10^3/uL Sodium 140 (136-145) mmol/L Potassium 4.5 (3.3-5.3) mmol/L Chloride 106 (98-115) mmol/L Carbon Dioxide 25.2 (21.0-32.0) mmol/L Anion Gap 13.3 (5-15) mmol/L BUN 22 (6-25) mg/dL Creatinine 0.73 (0.51-1.17) mg/dL Est Cr Clr Drug Dosing 51.79 mL/min Estimated GFR (MDRD) > 60 mL/min Glucose 97 (75 - 99) mg/dL Calcium 8.6 L (8.7-10.3) mg/dL Red Results Last 24 Hours: Microbiology 04/19/18 14:35 Aerobic Blood Culture - Preliminary Blood - Venous NO GROWTH AFTER 1 DAY Anaerobic Blood Culture - Preliminary NO GROWTH AFTER 1 DAY 04/19/18 13:36 Aerobic Blood Culture - Preliminary Blood - Venous - Lab Draw NO GROWTH AFTER 1 DAY Anaerobic Blood Culture - Preliminary NO GROWTH AFTER 1 DAY Med Orders - Current: Current Medications Acetaminophen (Tylenol) [address] [facility] Last Admin: 04/21/18 06:03 Dose: 650 mg Baclofen (Lioresal) [address] [facility] Last Admin: 04/21/18 08:09 Dose: 10 mg Ceftriaxone Sodium (Rocephin) [address] [facility] Last Admin: 04/20/18 21:17 Dose: 2 gm Cetirizine HCl (Zyrtec) 10 mg PO BEDTIME [facility] Last Admin: 04/20/18 21:16 Dose: 10 mg Diclofenac Sodium (Voltaren 1% Gel) 0 gm TOP QID PRN PRN Reason: Pain Last Admin: 04/21/18 08:09 Dose: 1 applic Doxylamine Succinate (Unisom Sleep Aid) 25 mg PO BEDTIME [facility] Last Admin: 04/20/18 21:16 Dose: 25 mg Hydrocortisone (Hydrocortisone 1% Crm) 0 gm TOP TID PRN PRN Reason: Itching Last Admin: 04/20/18 21:26 Dose: 1 applic Sodium Chloride (Normal Saline) 1,000 mls @ 70 mls/hr IV ASDIRECTED [facility] Last Admin: 04/21/18 01:01 Dose: 70 mls/hr Ibuprofen (Motrin) 600 mg PO BID PRN PRN Reason: Pain Last Admin: 04/19/18 20:13 Dose: 600 mg Tramadol HCl (Ultram) 50 mg PO TID PRN PRN Reason: Pain Discontinued Medications Acetaminophen (Tylenol) 650 mg PO Q4H PRN PRN Reason: Pain Diphenhydramine HCl (Benadryl) 25 mg PO ONETIME ONE Stop: 04/20/18 14:01 Last Admin: 04/20/18 13:49 Dose: 25 mg Diphenhydramine HCl (Benadryl) 25 mg PO ONETIME ONE Stop: 04/20/18 21:14 Last Admin: 04/20/18 21:26 Dose: 25 mg Piperacillin/Tazobactam/Dextrose (Zosyn In Dextrose Iso-Osmotic 3.375 Gm) 50 mls @ 100 mls/hr IV Q6H [facility] Last Admin: 04/20/18 08:02 Dose: 100 mls/hr Sodium Chloride (Normal Saline) 1,000 mls @ 250 mls/hr IV .BOLUS ONE Stop: 04/19/18 23:41 Last Admin: 04/19/18 21:31 Dose: 250 mls/hr Methylprednisolone Sodium Succinate (Solu-Medrol) 30 mg IVPUSH ONETIME ONE Stop: 04/20/18 14:01 Last Admin: 04/20/18 13:49 Dose: 30 mg - Exam Quality Assessment: No: Supplemental Oxygen General: Alert, Oriented Neck: Supple Lungs: Clear to Auscultation, Normal Respiratory Effort Cardiovascular: Regular Rate, Regular Rhythm GI/Abdominal Exam: Soft Back Exam: No: CVA Tenderness (L), CVA Tenderness (R) Extremities: Pedal Edema (1+ edema left lower extremity knee or ankle) Peripheral Pulses: 2+: Radial (L), Radial (R) Skin: Warm, Dry, Intact Neurological: No New Focal Deficit Psy/Mental Status: Alert, Normal Affect, Normal Mood. No: Hallucinations (No more hallucinations since admission) - Problem List Review Problem List Initiated/Reviewed/Updated: Yes - My Orders Last 24 Hours: My Active Orders 04/20/18 15:00 Acetaminophen [Tylenol] 650 mg PO Q8H - Plan Plan:: Brief history Kate is a 87-year-old female who is a resident of a local [facility] was seen and evaluated the [facility] yesterday when she was initially brought in for routine left knee aspiration. Upon the patient arriving from the [facility] she and her family state over the past 2 days prior to admission she had been feeling ill and not herself. Patient and family members complaining of her being malaise and generalized not feeling well, decreased appetite decrease activity with some visual hallucinations transiently at nighttime. The time she had no shortness of breath however her last admission here just a few weeks ago she did require 1 L oxygen at night. She denies shortness of breath, no cough, no flank pain rigors or chills or fevers however was admitted for pyelonephritis with sepsis in [facility] 2 or 3 weeks ago. She recently received a steroid injection in her cervical spine which went well and she has significant relief from this. 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 I seen here at the [facility] day of admission her left knee was slightly warm to touch and edematous. Labs at the [facility] was concerning for sepsis due to elevated white count and neutrophilia she was admitted for further workup and IV hydration and antibiotics Pertinent clinic findings Afebrile, BP 102/60 (low for her) WBC, 29,000, neutrophilia 90% Urine, suggestive of UTI, Crystals synovial fluid left knee Update, overall patient is feeling better with improved white count, left knee synovial fluid 31,000 nucleated cell count, with 98% PMNs, crystals. 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 Increase Tylenol from as needed to scheduled. DVT prophylaxis; LMWH Reg diet Chronic stable conditions Lipidemia Hypertension Obesity Cataract Consultations Consulted with ID Dr. Ramirez regarding concerning PMNs on synovial fluid, he agrees with ambiguous results along with current treatment plan Disposition/Disposition; continue with inpatient acute stay, continue IV antibiotics, seems to be responding to antibiotics, BC surveillance, continue ongoing monitoring for signs of sepsis, lactic acid normal, monitor BP carefully. Chest pre-and post void residuals today, place on bethanechol if needed. Add H2 for skin. Daily Lactobacilis to help prevent UTI may be option. In the meantime bladder scan pre-and post void today saline lock IV today and have her start ambulating today.
[2018-04-21] MEDS: Hydrocortisone 1% Crm 30 GM Tube TOP PRN ×3 (11:07→20:54)
[2018-04-21] MEDS: Ibuprofen 200 MG Tab PO PRN (16:51)
[2018-04-21] MEDS: Cetirizine 10 MG Tab PO SCH (20:52)
[2018-04-21] MEDS: Doxylamine Succinate 25 MG Tab PO SCH (20:52)
[2018-04-21] MEDS: cefTRIAXone 2 GM Vial IVPUSH SCH (21:00)
[2018-04-21] MEDS: Sodium Chloride 0.9% 10 ML Syringe FLUSH PRN (21:09)
[2018-04-22] MEDS: Ibuprofen 200 MG Tab PO PRN ×2 (04:37→14:57)
[2018-04-22] MEDS: Acetaminophen 325 MG Tab PO SCH ×3 (06:01→23:05)
[2018-04-22] MEDS: Baclofen 10 MG Tab PO SCH ×3 (08:21→20:09)
[2018-04-22] MEDS: Hydrocortisone 1% Crm 30 GM Tube TOP PRN ×2 (08:23→15:07)
--- NOTE | 2018-04-22 10:12 | PCM.PN ---
- General Info Date of Service: 04/22/18 Functional Status: Reports: Pain Controlled, Tolerating Diet, Urinating, Incentive Spirometry (15-1700). Denies: Ambulating - Review of Systems General: Denies: Fever, Weakness HEENT: Reports: No Symptoms Pulmonary: Reports: No Symptoms Cardiovascular: Reports: No Symptoms Gastrointestinal: Reports: No Symptoms Genitourinary: Reports: Other (980 spontaneous void) Neurological: Reports: No Symptoms Psychiatric: Reports: No Symptoms - Patient Data Vitals - Most Recent: Last Vital Signs Temp 99.2 F 04/22/18 06:20 Pulse 55 L 04/22/18 06:20 Resp 18 04/22/18 06:20 BP 129/64 04/22/18 06:20 Pulse Ox 94 L 04/22/18 06:20 Weight - Most Recent: 185 lb 9.6 oz I&O - Last 24 Hours: Intake & Output 04/21/18 04/22/18 04/22/18 22:59 06:59 14:59 Intake Total 150 50 Balance 150 50 Lab Results Last 24 Hours: Laboratory Results - last 24 hr 04/22/18 Range/Units 07:15 WBC 12.84 H (5.00-10.00) 10^3/uL RBC 3.54 L (3.80-5.50) 10^6/uL Hgb 10.3 L (12.0-16.0) g/dL Hct 32.3 L (37.0-47.0) % MCV 91.2 (82.0-92.0) fL MCH 29.1 (27.0-31.0) pg MCHC 31.9 L (32.0-36.0) g/dL RDW 14.7 H (11.5-14.5) % Plt Count 243 (150-400) 10^3/uL MPV 9.3 (7.4-10.4) fL Immature Gran % (Auto) 1.8 (0.0-5.0) % Neut % (Auto) 71.1 H (50.0-70.0) % Lymph % (Auto) 15.5 L (20.0-40.0) % [place] % (Auto) 6.5 (2.0-8.0) % Eos % (Auto) 4.8 H (1.0-3.0) % Baso % (Auto) 0.3 (0.0-1.0) % Immature Gran # (Auto) 0.23 (0.00-0.50) 10^3/uL Neut # (Auto) 9.14 H (2.50-7.00) 10^3/uL Lymph # (Auto) 1.99 (1.00-4.00) 10^3/uL [place] # (Auto) 0.83 H (0.10-0.80) 10^3/uL Eos # (Auto) 0.61 H (0.10-0.30) 10^3/uL Baso # (Auto) 0.04 (0.00-0.10) 10^3/uL Red Results Last 24 Hours: Microbiology 04/19/18 14:35 Aerobic Blood Culture - Preliminary Blood - Venous NO GROWTH AFTER 2 DAYS Anaerobic Blood Culture - Preliminary NO GROWTH AFTER 2 DAYS 04/19/18 13:36 Aerobic Blood Culture - Preliminary Blood - Venous - Lab Draw NO GROWTH AFTER 2 DAYS Anaerobic Blood Culture - Preliminary NO GROWTH AFTER 2 DAYS Med Orders - Current: Current Medications Acetaminophen (Tylenol) 650 mg PO Q8H [facility] Last Admin: 04/22/18 06:01 Dose: 650 mg Baclofen (Lioresal) 10 mg PO TID LIN Last Admin: 04/22/18 08:21 Dose: 10 mg Ceftriaxone Sodium (Rocephin) 2 gm IVPUSH Q24H LIN Last Admin: 04/21/18 21:00 Dose: 2 gm Cetirizine HCl (Zyrtec) 10 mg PO BEDTIME LIN Last Admin: 04/21/18 20:52 Dose: 10 mg Diclofenac Sodium (Voltaren 1% Gel) 0 gm TOP QID PRN PRN Reason: Pain Last Admin: 04/21/18 20:57 Dose: 1 applic Doxylamine Succinate (Unisom Sleep Aid) 25 mg PO BEDTIME LIN Last Admin: 04/21/18 20:52 Dose: 25 mg Hydrocortisone (Hydrocortisone 1% Crm) 0 gm TOP TID PRN PRN Reason: Itching Last Admin: 04/22/18 08:23 Dose: 1 applic Ibuprofen (Motrin) 600 mg PO BID PRN PRN Reason: Pain Last Admin: 04/22/18 04:37 Dose: 600 mg Sodium Chloride (Saline Flush) 10 ml FLUSH Q8HR PRN PRN Reason: keep vein open Last Admin: 04/21/18 21:09 Dose: 10 ml Tramadol HCl (Ultram) 50 mg PO TID PRN PRN Reason: Pain Discontinued Medications Acetaminophen (Tylenol) 650 mg PO Q4H PRN PRN Reason: Pain Diphenhydramine HCl (Benadryl) 25 mg PO ONETIME ONE Stop: 04/20/18 14:01 Last Admin: 04/20/18 13:49 Dose: 25 mg Diphenhydramine HCl (Benadryl) 25 mg PO ONETIME ONE Stop: 04/20/18 21:14 Last Admin: 04/20/18 21:26 Dose: 25 mg Sodium Chloride (Normal Saline) 1,000 mls @ 70 mls/hr IV ASDIRECTED LIN Last Admin: 04/21/18 01:01 Dose: 70 mls/hr Piperacillin/Tazobactam/Dextrose (Zosyn In Dextrose Iso-Osmotic 3.375 Gm) 50 mls @ 100 mls/hr IV Q6H [facility] Last Admin: 04/20/18 08:02 Dose: 100 mls/hr Sodium Chloride (Normal Saline) 1,000 mls @ 250 mls/hr IV .BOLUS ONE Stop: 04/19/18 23:41 Last Admin: 04/19/18 21:31 Dose: 250 mls/hr Methylprednisolone Sodium Succinate (Solu-Medrol) 30 mg IVPUSH ONETIME ONE Stop: 04/20/18 14:01 Last Admin: 04/20/18 13:49 Dose: 30 mg - Exam Quality Assessment: No: Supplemental Oxygen General: Alert, Oriented Neck: Supple Lungs: Clear to Auscultation, Normal Respiratory Effort Cardiovascular: Regular Rate, Regular Rhythm GI/Abdominal Exam: Soft (Female) Exam: Deferred Extremities: Pedal Edema (Improved edema will left lower extremity 1+ now) Peripheral Pulses: 2+: Radial (R), Femoral (L) Skin: Warm, Dry, Intact Neurological: No New Focal Deficit Psy/Mental Status: Alert, Normal Affect, Normal Mood - Problem List Review Problem List Initiated/Reviewed/Updated: Yes - My Orders Last 24 Hours: My Active Orders 04/21/18 10:26 Sodium Chloride 0.9% [Saline Flush] 10 ml FLUSH Q8HR PRN Convert IV to Saline Lock [OM.PC] Routine 04/21/18 10:28 Bladder Scan [RC] ASDIRECTED - Plan Plan:: Brief history Kate is a 87-year-old female who is a resident of a local long-term care center was seen and evaluated the [facility] yesterday when she was initially brought in for routine left knee aspiration. Upon the patient arriving from the [facility], [place], operated by [facility] she and her family state over the past 2 days prior to admission she had been feeling ill and not herself. Patient and family members complaining of her being malaise and generalized not feeling well, decreased appetite decrease activity with some visual hallucinations transiently at nighttime. The time she had no shortness of breath however her last admission here just a few weeks ago she did require 1 L oxygen at night. She denies shortness of breath, no cough, no flank pain rigors or chills or fevers however was admitted for pyelonephritis with sepsis in [facility] 2 or 3 weeks ago. She recently received a steroid injection in her cervical spine which went well and she has significant relief from this. 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 I seen here at the [facility] day of admission her left knee was slightly warm to touch and edematous. Labs at the [facility] was concerning for sepsis due to elevated white count and neutrophilia she was admitted for further workup and IV hydration and antibiotics Pertinent clinic findings Afebrile, BP 102/60 (low for her) WBC, 29,000, neutrophilia 90% Urine, suggestive of UTI, Crystals synovial fluid left knee Update, clinical goals quickly being met, afebrile, inflammatory indices continues to trend favorably, much less knee pain, no edema. 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 Increase Tylenol from as needed to scheduled. DVT prophylaxis; LMWH Reg diet Chronic stable conditions Lipidemia Hypertension Obesity Cataract Consultations Consulted with ID Dr. Ramirez regarding concerning PMNs on synovial fluid, he agrees with ambiguous results along with current treatment plan Disposition/Disposition; continue with inpatient acute stay, continue IV antibiotics, doing very well, discharge back to long-term care tomorrow April 23 with strict orders for bladder training to have patient empty bladder frequently on demand. Order for ceftriaxone 1 g IM daily 5 days will be sent to long-term care facility today. I will see her in the [place] [facility] Wednesday for follow-up .
[2018-04-22] MEDS: Doxylamine Succinate 25 MG Tab PO SCH (20:09)
[2018-04-22] MEDS: cefTRIAXone 2 GM Vial IVPUSH SCH (20:09)
[2018-04-22] MEDS: Cetirizine 10 MG Tab PO SCH (20:09)
[2018-04-22] MEDS: Sodium Chloride 0.9% 10 ML Syringe FLUSH PRN (20:09)
[2018-04-23] MEDS: Acetaminophen 325 MG Tab PO SCH (06:27)
[2018-04-23] MEDS: Baclofen 10 MG Tab PO SCH (08:04)
[2018-04-23] MEDS: Ibuprofen 200 MG Tab PO PRN (08:05)
--- NOTE | 2018-04-23 10:37 | PCM.DCSUM1 ---
Discharge Summary - Hospital Course Diagnosis: Stroke: No - Discharge Data Discharge Date: 04/23/18 Discharge Disposition: DC/Tfer to SNF 03 Condition: Fair - Patient Instructions Diet: Usual Diet as Tolerated Activity: As Tolerated, Cough & Deep Breathe, Elevate Extremity Driving: Do Not Drive Showering/Bathing: May Shower Notify Provider of: Fever, Increased Pain, Swelling and Redness, Nausea and/or Vomiting Other/Special Instructions: --Patient must void on demand every 4 hours while awake. --Continue to use incentive spirometer please encourage while awake. -- MAREN stockings bilateral lower extremities. --Moisturizing lotion such as Eucerin after bath. --Continue back with physical therapy. --Rocephin 1 g IM daily 5 days, premedicate with Tylenol, prednisone - Discharge Plan *PRESCRIPTION DRUG MONITORING PROGRAM REVIEWED*: Not Applicable *COPY OF PRESCRIPTION DRUG MONITORING REPORT IN PATIENT JACOB: Not Applicable Prescriptions/Med Rec: Diphenoxylate HCl/Atropine [Lomotil Tablet] 1 each PO Q4H PRN #20 tablet PRN Reason: Diarrhea Omeprazole 20 mg PO DAILY #7 tab. predniSONE [Prednisone] 5 mg PO DAILY #5 tablet Home Medications: Home Meds Baclofen 10 mg PO TID #90 04/05/18 [Rx] Benazepril [Lotensin] 10 mg PO DAILY #30 04/05/18 [Rx] Doxylamine Succinate [Unisom Sleep Aid] 25 mg PO BEDTIME #30 04/05/18 [Rx] Acetaminophen 650 mg PO Q4H PRN 04/19/18 [History] Calcium Carbonate/Vitamin D3 [Calcium 600 + Vit D Tablet] 1 each PO BIDMEALS [History] Trolamine Salicylate 1 applic TP TID PRN 04/19/18 [History] traMADol HCl [Tramadol HCl] 50 mg PO TID PRN 04/19/18 [History] Diphenoxylate HCl/Atropine [Lomotil Tablet] 1 each PO Q4H PRN #20 tablet [Rx] Ibuprofen 600 mg PO BID 7 Days #20 04/23/18 [Rx] Ibuprofen [Motrin] 600 mg PO BID PRN tablet 04/23/18 [Rx] Omeprazole 20 mg PO DAILY #7 tab 04/23/18 [Rx] predniSONE [Prednisone] 5 mg PO DAILY #5 tablet 04/23/18 [Rx] - Discharge Summary/Plan Comment DC Time >30 min.: Yes Discharge Summary/Plan Comment: Final diagnosis Urinary tract infection, Escherichia coli, Inflammatory arthritis, osteoarthritis Dehydration, resolved Pseudogout, Neurogenic bladder Diarrhea, medication induced Cutaneous drug reaction, mild resolving History summary Kate is a 87-year-old female who is a resident of a local [facility] was seen and evaluated the [facility] yesterday when she was initially brought in for routine left knee aspiration. Upon the patient arriving from the [facility] she and her family state over the past 2 days prior to admission she had been feeling ill and not herself. Patient and family members complaining of her being malaise and generalized not feeling well, decreased appetite decrease activity with some visual hallucinations transiently at nighttime. I seen here at the [facility] day of admission her left knee was slightly warm to touch and edematous. Labs at the [facility] was concerning for sepsis due to elevated white count and neutrophilia she was admitted for further workup and IV hydration along with antibiotics. Pertinent clinic findings Afebrile, BP 102/60 (low for her) WBC, 29,000, neutrophilia 90% Urine, suggestive of UTI, Crystals synovial fluid left knee Hospital course Her hospital course went fairly well however she did have a mild cutaneous drug reaction likely to ceftriaxone, there was no respiratory compromise and it did mainly resolved with H1 and H2 blockers. She was treated with broad-spectrum Zosyn along with 2 g of ceftriaxone in which her inflammatory markers did greatly reduce which corresponded to her clinical course of her feeling much better. She had no fever, no nausea or vomiting however did have some diarrhea day prior to discharge likely due to antibiotic use. She had a pre-/post residual void of 980/0 therefore demand voiding every 4 hours was administered will need to continue upon transfer back to [facility]. Her synovial fluid from the [facility] from her left knee returned calcium pyrophosphate crystal deposition with high PNM's however no growth on Gram stain. Infectious disease was consulted due to ambiguous results no change in treatment course however will need close follow-up. Blood cultures were monitored no growth after 3 days, DVT prophylaxis administered. MAREN stockings were applied. Medication changes/adjustments upon discharge Rocephin reduced to 1 g daily 5 days, newly added Prednisone 5 mg by mouth daily 5 days--premedicate, newly added, Omeprazole 20 mg by mouth daily 7 newly added Lomotil, one tablet every 4 hours when necessary, limited dosing, newly added Disposition Patient will be transferred back to [facility] 4 seasons, long discussion with patient and family requiring demand voiding every 4 hours while awake, very important she empties her bladder. Probiotics, I will see her back in the clinic in [place] Wednesday. Greater than 60 minutes was spent on this discharge, physical examination, medication education, family discussion and education with individualized treatment plan - General Info Functional Status: Reports: Pain Controlled, Tolerating Diet, Ambulating, Urinating, Incentive Spirometry. Denies: New Symptoms - Review of Systems General: Denies: Fever, Fatigue, Malaise, Chills HEENT: Reports: No Symptoms Gastrointestinal: Reports: Diarrhea - Patient Data Vitals - Most Recent: Last Vital Signs Temp 98.6 F 04/23/18 06:41 Pulse 65 04/23/18 06:41 Resp 18 04/23/18 06:41 BP 139/57 L 04/23/18 06:41 Pulse Ox 93 L 04/23/18 06:41 Weight - Most Recent: 185 lb 9.6 oz I&O - Last 24 hours: Intake & Output 04/22/18 04/23/18 04/23/18 22:59 06:59 14:59 Intake Total 100 100 Output Total 300 Balance 100 -200 Lab Results - Last 24 hrs: Laboratory Results - last 24 hr 04/23/18 Range/Units 07:30 WBC 14.91 H (5.00-10.00) 10^3/uL RBC 3.90 (3.80-5.50) 10^6/uL Hgb 11.4 L (12.0-16.0) g/dL Hct 35.3 L (37.0-47.0) % MCV 90.5 (82.0-92.0) fL MCH 29.2 (27.0-31.0) pg MCHC 32.3 (32.0-36.0) g/dL RDW 14.8 H (11.5-14.5) % Plt Count 255 (150-400) 10^3/uL MPV 9.0 (7.4-10.4) fL Immature Gran % (Auto) 2.1 (0.0-5.0) % Neut % (Auto) 76.0 H (50.0-70.0) % Lymph % (Auto) 10.9 L (20.0-40.0) % [place] % (Auto) 6.9 (2.0-8.0) % Eos % (Auto) 3.8 H (1.0-3.0) % Baso % (Auto) 0.3 (0.0-1.0) % Immature Gran # (Auto) 0.31 (0.00-0.50) 10^3/uL Neut # (Auto) 11.33 H (2.50-7.00) 10^3/uL Lymph # (Auto) 1.63 (1.00-4.00) 10^3/uL [place] # (Auto) 1.03 H (0.10-0.80) 10^3/uL Eos # (Auto) 0.57 H (0.10-0.30) 10^3/uL Baso # (Auto) 0.04 (0.00-0.10) 10^3/uL [facility] Results - Last 24 hrs: Microbiology 04/19/18 14:35 Aerobic Blood Culture - Preliminary Blood - Venous NO GROWTH AFTER 3 DAYS Anaerobic Blood Culture - Preliminary NO GROWTH AFTER 3 DAYS 04/19/18 13:36 Aerobic Blood Culture - Preliminary Blood - Venous - Lab Draw NO GROWTH AFTER 3 DAYS Anaerobic Blood Culture - Preliminary NO GROWTH AFTER 3 DAYS Med Orders - Current: Current Medications Acetaminophen (Tylenol) 650 mg PO Q8H [facility] Last Admin: 04/23/18 06:27 Dose: 650 mg Baclofen (Lioresal) 10 mg PO TID [facility] Last Admin: 04/23/18 08:04 Dose: 10 mg Ceftriaxone Sodium (Rocephin) 2 gm IVPUSH Q24H [facility] Last Admin: 04/22/18 20:09 Dose: 2 gm Cetirizine HCl (Zyrtec) 10 mg PO BEDTIME [facility] Last Admin: 04/22/18 20:09 Dose: 10 mg Diclofenac Sodium (Voltaren 1% Gel) 0 gm TOP QID PRN PRN Reason: Pain Last Admin: 04/21/18 20:57 Dose: 1 applic Doxylamine Succinate (Unisom Sleep Aid) 25 mg PO BEDTIME [facility] Last Admin: 04/22/18 20:09 Dose: 25 mg Hydrocortisone (Hydrocortisone 1% Crm) 0 gm TOP TID PRN PRN Reason: Itching Last Admin: 04/22/18 15:07 Dose: 1 applic Ibuprofen (Motrin) 600 mg PO BID PRN PRN Reason: Pain Last Admin: 04/23/18 08:05 Dose: 600 mg Sodium Chloride (Saline Flush) 10 ml FLUSH Q8HR PRN PRN Reason: keep vein open Last Admin: 04/22/18 20:09 Dose: 10 ml Tramadol HCl (Ultram) 50 mg PO TID PRN PRN Reason: Pain Discontinued Medications Acetaminophen (Tylenol) 650 mg PO Q4H PRN PRN Reason: Pain Diphenhydramine HCl (Benadryl) 25 mg PO ONETIME ONE Stop: 04/20/18 14:01 Last Admin: 04/20/18 13:49 Dose: 25 mg Diphenhydramine HCl (Benadryl) 25 mg PO ONETIME ONE Stop: 04/20/18 21:14 Last Admin: 04/20/18 21:26 Dose: 25 mg Sodium Chloride (Normal Saline) 1,000 mls @ 70 mls/hr IV ASDIRECTED LIN Last Admin: 04/21/18 01:01 Dose: 70 mls/hr Piperacillin/Tazobactam/Dextrose (Zosyn In Dextrose Iso-Osmotic 3.375 Gm) 50 mls @ 100 mls/hr IV Q6H LIN Last Admin: 04/20/18 08:02 Dose: 100 mls/hr Sodium Chloride (Normal Saline) 1,000 mls @ 250 mls/hr IV .BOLUS ONE Stop: 04/19/18 23:41 Last Admin: 04/19/18 21:31 Dose: 250 mls/hr Methylprednisolone Sodium Succinate (Solu-Medrol) 30 mg IVPUSH ONETIME ONE Stop: 04/20/18 14:01 Last Admin: 04/20/18 13:49 Dose: 30 mg - Exam Quality Assessment: Denies: Supplemental Oxygen General: Reports: Alert, Oriented Lungs: Reports: Clear to Auscultation, Normal Respiratory Effort Cardiovascular: Reports: Regular Rate, Regular Rhythm GI/Abdominal Exam: Normal Bowel Sounds, Soft, No Distention Extremities: Other (Slight edema right medial ankle). No: Increased Warmth Skin: Reports: Dry, Rash (Slight rash dry skin upper arms, no hives) Psy/Mental Status: Reports: Alert, Normal Affect, Normal Mood
== END 2018-04-23 11:30 | DRG 690 ==
LOC: KA.MS 12:52
PROVIDERS: ADMIT Nurse Practitioner Family; ATTEND Family Medicine
PROC: 0S9D3ZZ Drainage of Left Knee Joint, Percutaneous Approach (ICD-10-PCS; principal; 2018-04-19)
DX: N10 Acute pyelonephritis (principal); K52.1 Toxic gastroenteritis and colitis; B96.20 Unspecified Escherichia coli [E. coli] as the cause of diseases classified elsewhere; M19.90 Unspecified osteoarthritis, unspecified site; E86.0 Dehydration; M11.20 Other chondrocalcinosis, unspecified site; N31.9 Neuromuscular dysfunction of bladder, unspecified; T36.1X5A Adverse effect of cephalosporins and other beta-lactam antibiotics, initial encounter; E66.9 Obesity, unspecified; H26.9 Unspecified cataract; E78.00 Pure hypercholesterolemia, unspecified; I10 Essential (primary) hypertension; R32 Unspecified urinary incontinence; M17.12 Unilateral primary osteoarthritis, left knee; M25.462 Effusion, left knee; Z96.651 Presence of right artificial knee joint; Z88.1 Allergy status to other antibiotic agents; Z85.42 Personal history of malignant neoplasm of other parts of uterus; Z87.442 Personal history of urinary calculi; Z90.710 Acquired absence of both cervix and uterus; Z68.30 Body mass index [BMI] 30.0-30.9, adult
CPT/HCPCS: 36415; 51798; 71046; 80048; 83605; 84484; 85025; 87040; A9270-GY; J0696; J2543; J2930; J7030

== ENCOUNTER 2019-06-12 11:26 | Inpatient (IN) | payer MEDICARE, BC ==
--- NOTE | 2019-06-12 11:38 | EDM.PDOC ---
ED HPI GENERAL MEDICAL PROBLEM - General Chief Complaint: Chest Pain Stated Complaint: CONFUSION Time Seen by Provider: 06/12/19 11:33 Source of Information: Reports: Patient, [facility] Records - History of Present Illness INITIAL COMMENTS - FREE TEXT/NARRATIVE: Kate states she experienced shortness of breath with left-sided breast pain yesterday. Did not tell anyone she did not feel it was severe. Today they noticed her discomfort which she admitted ongoing issues. Resides in [place] at the assisted living and has had no recent travel or known exposure to any of the pandemic virus. She is unsure of fever but not thinking she has had one. Bowel movements and urination have been within her typical regimen. Eyes any other contributing factors. Onset Date: 06/11/19 Duration: Hour(s):, Getting Worse Location: Reports: Chest Quality: Reports: Ache, Sharp Severity: Moderate Improves with: Reports: None Worsens with: Reports: Movement Associated Symptoms: Reports: No Other Symptoms Left Lower Breast Pain Score (Numeric/FACES): 9 - Related Data Allergies Allergy/AdvReac Type Severity Reaction Status Date / Time cephalexin Allergy Intermediate Itching Verified 04/19/18 13:23 piperacillin Allergy Intermediate Itching Verified 04/20/18 13:45 tazobactam Allergy Intermediate Itching Verified 04/20/18 13:45 ceftriaxone Allergy Rash Verified 06/12/19 12:56 Home Meds: Home Meds Calcium Carbonate/Vitamin D3 [Calcium 600 + Vit D Tablet] 1 each PO BIDMEALS [History] Acetaminophen 2 tab PO DAILY 06/12/19 [History] Escitalopram [Lexapro] 10 mg PO DAILY 06/12/19 [History] Ferrous Sulfate 325 mg PO Q48H 06/12/19 [History] L.acidophil/L.plantar/Bifido 7 [Up4 Probiotics Adlt 50 Pls 25B] 1 tab PO BID [History] Misoprostol [Cytotec] 200 mcg PO DAILY 06/12/19 [History] Nitrofurantoin Macrocrystal [Nitrofurantoin] 50 mg PO BEDTIME 06/12/19 [History] Trolamine Salicylate/Aloe Vera [Aspercreme 10%] 1 applic TOP TID PRN 06/12/19 [ History] polyethylene glycoL 3350 [MiraLAX] 1 pkt PO 0800 06/12/19 [History] predniSONE [Prednisone] 7.5 mg PO DAILY 06/12/19 [History] Past Medical History HEENT History: Reports: Cataract, Impaired Vision Cardiovascular History: Reports: High Cholesterol, Hypertension Respiratory History: Reports: None Genitourinary History: Reports: Renal Calculus, Urinary Incontinence [employer] History: Reports: Musculoskeletal History: Reports: Neck Pain, Chronic, Other (See Below) Other Musculoskeletal History: 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 Neurological History: Reports: None Psychiatric History: Reports: None Endocrine/Metabolic History: Reports: None Hematologic History: Reports: Blood Transfusion(s) 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 Dermatologic History: Reports: None - Infectious Disease History Infectious Disease History: Reports: Chicken Pox Other Infectious Disease History: unknown - Past Surgical History Head Surgeries/Procedures: Reports: None HEENT Surgical History: Reports: Cataract Surgery Cardiovascular Surgical History: Reports: None Respiratory Surgical History: Reports: None GI Surgical History: Reports: Appendectomy, Cholecystectomy Female Surgical History: Reports: Hysterectomy, Kidney stone extraction Endocrine Surgical History: Reports: None Musculoskeletal Surgical History: Reports: Knee Replacement Oncologic Surgical History: Reports: None Dermatological Surgical History: Reports: None Social & Family History - Family History Family Medical History: Noncontributory Cardiac: Reports: CAD Oncologic: Reports: Lung - Caffeine Use Caffeine Use: Reports: Coffee - Living Situation & Occupation Living situation: Reports: ED ROS GENERAL - Review of Systems Review Of Systems: Comprehensive ROS is negative, except as noted in HPI. ED EXAM, GENERAL - Physical Exam Exam: See Below Free Text/Narrative:: She is alert and appropriate telling me where she resides in [place]. HEENT is negative to discharge or deformity. Tacky oral membranes. Neck soft supple she complains of chronic pain but no lymphadenopathy no nuchal rigidity. I do not appreciate carotid bruit. Anterior chest is fine rhonchi. She points to the lower left breast region with discomfort with no radiation acknowledged. Bases are diminished both anterior and posterior. Heart rate is tachycardic I do not appreciate murmur. Abdomen is rotund and soft no pain or tenderness to palpation, no flank pain rectal was deferred. Skin is warm and dry with trace edema to the lower extremities able to move her feet on command. EKG INTERPRETATION EKG Date: 06/12/19 Time: 11:45 Rhythm: Other (Sinus tachycardia) Rate (Beats/Min): 105 Course - Vital Signs Last Recorded V/S: Last Vital Signs Temp 37.6 C 06/12/19 14:16 Pulse 94 06/12/19 14:16 Resp 25 H 06/12/19 14:16 BP 122/65 06/12/19 14:16 Pulse Ox 94 L 06/12/19 14:16 - Orders/Labs/Meds Orders: Active Orders 24 hr Category Date Time Status EKG Documentation Completion [RC] ASDIRECTED Care 06/12/19 11:38 Active CULTURE BLOOD [BC] Stat Lab 06/12/19 12:50 Received CULTURE BLOOD [BC] Stat Lab 06/12/19 14:08 Received Sodium Chloride 0.9% [Normal Saline] 1,000 ml Med 06/12/19 13:30 Active IV ASDIRECTED EKG 12 Lead [EK] Routine Ther 06/12/19 11:38 Ordered Medication Orders Sodium Chloride (Normal Saline) 1,000 mls @ 75 mls/hr IV ASDIRECTED LIN Last Admin: 06/12/19 13:30 Dose: 75 mls/hr Labs: Laboratory Tests 06/12/19 06/12/19 06/12/19 Range/Units 11:40 11:40 11:40 WBC 20.04 H (5.00-10.00) 10^3/uL RBC 4.51 (3.80-5.50) 10^6/uL Hgb 14.4 D (12.0-16.0) g/dL Hct 44.1 (37.0-47.0) % MCV 97.8 H D (82.0-92.0) fL MCH 31.9 H (27.0-31.0) pg MCHC 32.7 (32.0-36.0) g/dL RDW 13.0 (11.5-14.5) % Plt Count 163 D (150-400) 10^3/uL MPV 10.0 (7.4-10.4) fL Immature Gran % (Auto) 0.5 (0.0-5.0) % Neut % (Auto) 76.1 H (50.0-70.0) % Lymph % (Auto) 14.8 L (20.0-40.0) % [place] % (Auto) 8.3 H (2.0-8.0) % Eos % (Auto) 0.2 L (1.0-3.0) % Baso % (Auto) 0.1 (0.0-1.0) % Immature Gran # (Auto) 0.10 (0.00-0.50) 10^3/uL Neut # (Auto) 15.22 H (2.50-7.00) 10^3/uL Lymph # (Auto) 2.97 (1.00-4.00) 10^3/uL [place] # (Auto) 1.67 H (0.10-0.80) 10^3/uL Eos # (Auto) 0.05 L (0.10-0.30) 10^3/uL Baso # (Auto) 0.03 (0.00-0.10) 10^3/uL D-Dimer, Quantitative 3250 H (<400) ng/mL Sodium 138 (136-145) mmol/L Potassium 3.7 (3.3-5.3) mmol/L Chloride 98 (98-115) mmol/L Carbon Dioxide 26.6 (21.0-32.0) mmol/L Anion Gap 17.1 H (5-15) mmol/L BUN 16 (6-25) mg/dL Creatinine 0.85 (0.51-1.17) mg/dL Est Cr Clr Drug Dosing 43.65 mL/min Estimated GFR (MDRD) > 60 mL/min Glucose 196 H (75 - 99) mg/dL Lactic Acid (0.4-2.0) mmol/L Calcium 9.7 (8.7-10.3) mg/dL Total Bilirubin 1.3 H (0.2-1.0) mg/dL AST 20 (15-37) U/L ALT 23 (12-78) U/L Alkaline Phosphatase 61 (46-116) IU/L Troponin I 0.04 (0.00-0.070) ng/mL B-Natriuretic Peptide 25 (0-100) pg/mL Total Protein 8.3 H (6.4-8.2) g/dL Albumin 3.44 (3.00-4.80) g/dL 06/12/19 Range/Units 11:40 WBC (5.00-10.00) 10^3/uL RBC (3.80-5.50) 10^6/uL Hgb (12.0-16.0) g/dL Hct (37.0-47.0) % MCV (82.0-92.0) fL MCH (27.0-31.0) pg MCHC (32.0-36.0) g/dL RDW (11.5-14.5) % Plt Count (150-400) 10^3/uL MPV (7.4-10.4) fL Immature Gran % (Auto) (0.0-5.0) % Neut % (Auto) (50.0-70.0) % Lymph % (Auto) (20.0-40.0) % [place] % (Auto) (2.0-8.0) % Eos % (Auto) (1.0-3.0) % Baso % (Auto) (0.0-1.0) % Immature Gran # (Auto) (0.00-0.50) 10^3/uL Neut # (Auto) (2.50-7.00) 10^3/uL Lymph # (Auto) (1.00-4.00) 10^3/uL [place] # (Auto) (0.10-0.80) 10^3/uL Eos # (Auto) (0.10-0.30) 10^3/uL Baso # (Auto) (0.00-0.10) 10^3/uL D-Dimer, Quantitative (<400) ng/mL Sodium (136-145) mmol/L Potassium (3.3-5.3) mmol/L Chloride (98-115) mmol/L Carbon Dioxide (21.0-32.0) mmol/L Anion Gap (5-15) mmol/L BUN (6-25) mg/dL Creatinine (0.51-1.17) mg/dL Est Cr Clr Drug Dosing mL/min Estimated GFR (MDRD) mL/min Glucose (75 - 99) mg/dL Lactic Acid 1.8 (0.4-2.0) mmol/L Calcium (8.7-10.3) mg/dL Total Bilirubin (0.2-1.0) mg/dL AST (15-37) U/L ALT (12-78) U/L Alkaline Phosphatase (46-116) IU/L Troponin I (0.00-0.070) ng/mL B-Natriuretic Peptide (0-100) pg/mL Total Protein (6.4-8.2) g/dL Albumin (3.00-4.80) g/dL Meds: Medications Generic Name Dose Route Start Last Admin Trade Name Michael PRN Reason Stop Dose Admin Sodium Chloride 1,000 mls @ 75 mls/hr 06/12/19 13:30 06/12/19 13:30 Normal Saline IV 75 mls/hr ASDIRECTED LIN Administration Discontinued Medications Generic Name Dose Route Start Last Admin Trade Name Basilioq PRN Reason Stop Dose Admin Levofloxacin/Dextrose Confirm 06/12/19 13:20 06/12/19 14:13 Levaquin In D5w 500 Mg/100 Ml Administered 06/12/19 13:21 Not Given Dose 100 mls @ as directed IV .STK-MED ONE Sodium Chloride Confirm 06/12/19 13:21 06/12/19 14:13 Normal Saline Administered 06/12/19 13:22 Not Given Dose 1,000 mls @ as directed .ROUTE .STK-MED ONE Sodium Chloride 50 mls @ 200 mls/min 06/12/19 13:31 06/12/19 13:34 Normal Saline IV 06/12/19 13:32 200 mls/min ONETIME ONE Administration Sodium Chloride 50 mls @ 200 mls/min 06/12/19 13:32 06/12/19 13:34 Normal Saline IV 06/12/19 13:33 200 mls/min ONETIME ONE Administration Levofloxacin/Dextrose 500 mg/ 100 mls @ 200 mls/hr 06/12/19 13:30 06/12/19 13 :30 Premix IV 06/12/19 13:59 200 mls/hr ONETIME ONE Administration Iopamidol 100 ml 06/12/19 13:31 06/12/19 13:33 Isovue-370 (76%) IV 06/12/19 13:32 75 ml ONETIME ONE Administration - Re-Assessments/Exams Free Text/Narrative Re-Assessment/Exam: 06/12/19 15:06 Oxygen sats initially maintained 5 L tapered down to 3 during the course of the stay as they were 95% on 5 L. See nursing notes for details. Departure - Departure Time of Disposition: 15:07 Disposition: Admitted As Inpatient 67 Condition: Fair Clinical Impression: Shortness of breath, Pneumonia, Pulmonary embolus, left, Chest pain at rest - Discharge Information *PRESCRIPTION DRUG MONITORING PROGRAM REVIEWED*: Not Applicable *COPY OF PRESCRIPTION DRUG MONITORING REPORT IN PATIENT JACOB: Not Applicable Referrals: Silverio Oropeza DO[facility] [Primary Care Provider] - Forms: ED Department Discharge Additional Instructions: Will be admitted to the service of Dr. Castro Shaffer. Sepsis Event Note - Focused Exam Vital Signs: Vital Signs Temp Pulse Resp BP Pulse Ox 06/12/19 14:16 37.6 C 94 25 H 122/65 94 L 06/12/19 13:00 38.2 C H 06/12/19 12:18 37.0 C 102 H 34 H 118/65 93 L 06/12/19 11:44 37.4 C 101 H 24 H 180/102 H 78 L Date Exam was Performed: 06/12/19 Time Exam was Performed: 14:27 ED Communication - ED Communication Date/Time Date: 06/12/19 Time Called: 14:10 (Placed to [facility] to have Dr. Syed Perry return call) - Conversation Summary Admitting Provider Agreed to Patient's Admission: Yes Outpatient Provider Agreed to Follow-up on this Patient: Yes Radiology Reading Discussed with Radiologist: Yes - Problem List & Annotations (1) Shortness of breath SNOMED Code(s): 124429535 Code(s): R06.02 - SHORTNESS OF BREATH Status: Acute Priority: High Current Visit: Yes (2) Chest pain at rest SNOMED Code(s): 8229429 Code(s): R07.9 - CHEST PAIN, UNSPECIFIED Status: Acute Priority: High Current Visit: Yes (3) Pneumonia SNOMED Code(s): 333716019 Code(s): J18.9 - PNEUMONIA, UNSPECIFIED ORGANISM Status: Acute Current Visit: Yes Qualifiers: Pneumonia type: due to unspecified organism Laterality: left Lung location: lower lobe of lung Qualified Code(s): J18.9 - Pneumonia, unspecified organism (4) Pulmonary embolus, left SNOMED Code(s): 75885306 Code(s): I26.99 - OTHER PULMONARY EMBOLISM WITHOUT ACUTE COR PULMONALE Status: Acute Priority: High Current Visit: Yes - Problem List Review Problem List Initiated/Reviewed/Updated: Yes - My Orders Last 24 Hours: My Active Orders 06/12/19 11:38 EKG Documentation Completion [RC] ASDIRECTED EKG 12 Lead [EK] Routine 06/12/19 12:50 CULTURE BLOOD [BC] Stat 06/12/19 13:30 Sodium Chloride 0.9% [Normal Saline] 1,000 ml IV ASDIRECTED 06/12/19 14:08 CULTURE BLOOD [BC] Stat - Assessment/Plan Last 24 Hours: My Active Orders 06/12/19 11:38 EKG Documentation Completion [RC] ASDIRECTED EKG 12 Lead [EK] Routine 06/12/19 12:50 CULTURE BLOOD [BC] Stat 06/12/19 13:30 Sodium Chloride 0.9% [Normal Saline] 1,000 ml IV ASDIRECTED 06/12/19 14:08 CULTURE BLOOD [BC] Stat
--- NOTE | 2019-06-12 12:14 | CR ---
[id number] RAD/RAD Chest PA And Lateral EXAM: RAD Chest PA And Lateral INDICATION: SHORT OF BREATH. COMPARISON: April 19, 2018. DISCUSSION: Cardiomediastinal silhouette is stable in size and contour. Left basilar pulmonary infiltrate. Right basilar subsegmental atelectasis and/or scarring. Low lung volumes with associated vascular crowding. No pneumothorax. IMPRESSION: Left basilar pulmonary infiltrate. Tyree Case DO 06/12/19 [id number] Thank you for allowing us to participate in the care of your patient.
[2019-06-12 12:17] LABS: ANION GAP 17.1 mmol/L (5-15); CHLORIDE,CL 98 mmol/L (98-115); SODIUM,NA 138 mmol/L (136-145)
[2019-06-12] MEDS ORDERED: Levofloxacin/Dextrose 5%-Water 100 ML IV ONE (13:20)
[2019-06-12] MEDS ORDERED: Sodium Chloride 0.9% 1,000 ML ONE (13:21)
[2019-06-12] MEDS ORDERED: Sodium Chloride 0.9% 1,000 ML IV SCH (13:30)
[2019-06-12] MEDS ORDERED: Levofloxacin/Dextrose 5%-Water 500 MG in Premix Bag 1 BAG IV ONE (13:30)
[2019-06-12] MEDS ORDERED: Sodium Chloride 0.9% 50 ML IV ONE ×2 (13:31→13:32)
[2019-06-12] MEDS ORDERED: Iopamidol 755 Mg/ML 100 ML Bottle IV ONE (13:31)
--- NOTE | 2019-06-12 14:12 | CT ---
[id number] CT/CTA Chest EXAM: CTA Chest CLINICAL DATA: ELEVATED D DIMER,CHEST WALL PAIN. COMPARISON: Radiograph from today. FINDINGS: LUNGS: Small left pleural effusion. Bibasal subsegmental atelectasis in the lower lobes left greater than right. Mild amount of dependent atelectasis in the upper lobes. HEART AND GREAT VESSELS: Multiple hypodense filling defects in segmental and subsegmental branches of the left lower lobe (series 3 images 67 through 95, as well as the left upper lobe (series 3 image 53). Overall clot burden is mild to moderate. No radiographic evidence of heart strain. Within limitations of respiratory motion artifact, no definitive evidence of emboli on the right. Heart is normal in size. No pericardial effusion. Thoracic aorta atherosclerosis. No aneurysm. MEDIASTINUM AND LYMPHATICS: No mediastinal or hilar lymphadenopathy. UPPER ABDOMINAL ORGANS: Gallbladder has been resected. BONES: Scattered changes of spondylosis in the spine. No fracture or osseous lesion. IMPRESSION: Acute pulmonary emboli on the left involving numerous segmental and subsegmental branches of the upper and lower lobe. Overall clot burden is mild to moderate. Other findings are described above. Results relayed to Qasim Edmondson at time of dictation. Osman Ji MD 06/12/19 [id number] Thank you for allowing us to participate in the care of your patient.
[2019-06-12 17:04] LABS: PTT,PARTIAL THROMBOPLSTIN TIME 29.1 SEC (23.1-31.9)
[2019-06-12] MEDS ORDERED: Enoxaparin 100 MG/1 ML Syringe SUBCUT SCH ×2 (19:00→21:00)
[2019-06-12] MEDS ORDERED: Trolamine Salicylate/Aloe Vera 10% Crm 85 GM Tube TOP PRN (19:30)
[2019-06-12] MEDS: Enoxaparin 100 MG/1 ML Syringe SUBCUT SCH (20:06)
[2019-06-12] MEDS: Acetaminophen 500 MG Tab PO PRN (21:24)
[2019-06-12] MEDS: Melatonin 3 MG Tab PO SCH (21:24)
[2019-06-12] MEDS: B.Bifidum/B.Longum/L.Acidophilus/L.Rhamnosus (Probiotic) Cap PO SCH (21:24)
[2019-06-12] MEDS: Escitalopram 10 MG Tab PO SCH (21:24)
[2019-06-13] MEDS: Acetaminophen 500 MG Tab PO PRN ×2 (03:39→13:00)
[2019-06-13] MEDS: Omeprazole 20 MG Cap.CR PO SCH (07:50)
[2019-06-13] MEDS: Enoxaparin 100 MG/1 ML Syringe SUBCUT SCH (07:50)
[2019-06-13] MEDS: Polyethylene Glycol 3350 Powder 17 GM Packet PO SCH (07:53)
[2019-06-13] MEDS: predniSONE 5 MG Tab PO SCH (08:00)
[2019-06-13] MEDS: B.Bifidum/B.Longum/L.Acidophilus/L.Rhamnosus (Probiotic) Cap PO SCH ×2 (08:00→20:46)
[2019-06-13 08:46] LABS: ANION GAP 14.8 mmol/L (5-15); CHLORIDE,CL 103 mmol/L (98-115); SODIUM,NA 140 mmol/L (136-145)
[2019-06-13] MEDS: Nitrofurantoin Macrocrystal 50 MG Cap PO SCH ×2 (08:49→20:47)
[2019-06-13] MEDS ORDERED: MISOPROSTOL 200 MCG PO SCH (09:00)
--- NOTE | 2019-06-13 10:31 | PCM.HP.2 ---
H&P History of Present Illness - General Date of Service: 06/13/19 Admit Problem/Dx: Admission Diagnosis/Problem Admission Diagnosis/Problem Pneumonia Source of Information: Patient, Old Records, Provider, RN History Limitations: Reports: No Limitations Left Lower Breast Pain Score (Numeric/FACES): 9 - Related Data Allergies/Adverse Reactions: Allergies Allergy/AdvReac Type Severity Reaction Status Date / Time cephalexin Allergy Intermediate Itching Verified 06/13/19 02:54 piperacillin Allergy Intermediate Itching Verified 06/13/19 02:54 tazobactam Allergy Intermediate Itching Verified 06/13/19 02:54 ceftriaxone Allergy Rash Verified 06/13/19 02:54 Home Medications: Home Meds Calcium Carbonate/Vitamin D3 [Calcium 600 + Vit D Tablet] 1 each PO BIDMEALS [History] Escitalopram [Lexapro] 10 mg PO DAILY 06/12/19 [History] Ferrous Sulfate 325 mg PO Q48H 06/12/19 [History] L.acidophil/L.plantar/Bifido 7 [Up4 Probiotics Adlt 50 Pls 25B] 1 tab PO BID [History] Trolamine Salicylate/Aloe Vera [Aspercreme 10%] 1 applic TOP TID PRN 06/12/19 [ History] miSOPROStoL [Cytotec] 200 mcg PO DAILY 06/12/19 [History] nitrofurantoin macrocrystaL [Nitrofurantoin] 50 mg PO BEDTIME 06/12/19 [History] polyethylene glycoL 3350 [MiraLAX] 17 gm PO 0800 06/12/19 [History] predniSONE [Prednisone] 7.5 mg PO DAILY 06/12/19 [History] Acetaminophen/Diphenhydramine [Tylenol Pm Ex-Strength Caplet] 2 tab PO BEDTIME 06/13/19 [History] Ascorbate Calcium [Vitamin C] 500 mg PO Q48H 06/13/19 [History] Past Medical History HEENT History: Reports: Cataract, Impaired Vision Cardiovascular History: Reports: High Cholesterol, Hypertension Respiratory History: Reports: None Genitourinary History: Reports: Renal Calculus, Urinary Incontinence [employer] History: Reports: Musculoskeletal History: Reports: Neck Pain, Chronic, Other (See Below) Other Musculoskeletal History: 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 Neurological History: Reports: None Psychiatric History: Reports: None Endocrine/Metabolic History: Reports: None Hematologic History: Reports: Blood Transfusion(s) 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 Dermatologic History: Reports: None - Infectious Disease History Infectious Disease History: Reports: Chicken Pox Other Infectious Disease History: unknown - Past Surgical History Head Surgeries/Procedures: Reports: None HEENT Surgical History: Reports: Cataract Surgery Cardiovascular Surgical History: Reports: None Respiratory Surgical History: Reports: None GI Surgical History: Reports: Appendectomy, Cholecystectomy Female Surgical History: Reports: Hysterectomy, Kidney stone extraction Endocrine Surgical History: Reports: None Musculoskeletal Surgical History: Reports: Knee Replacement Oncologic Surgical History: Reports: None Dermatological Surgical History: Reports: None Social & Family History - Family History Family Medical History: Noncontributory Cardiac: Reports: CAD Oncologic: Reports: Lung - Tobacco Use Smoking Status *Q: Never Smoker Second Hand Smoke Exposure: No - Caffeine Use Caffeine Use: Reports: Tea - Recreational Drug Use Recreational Drug Use: No - Living Situation & Occupation Living situation: Reports: H&P Review of Systems - Review of Systems: Review Of Systems: See Below General: Reports: No Symptoms HEENT: Reports: No Symptoms Pulmonary: Reports: Shortness of Breath, Pleuritic Chest Pain (under left breast ). Denies: Cough, Sputum Gastrointestinal: Denies: Abdominal Pain, Constipation, Diarrhea, Decreased Appetite, Distension Genitourinary: Denies: Dysuria, Frequency, Burning, Pain, Urgency Musculoskeletal: Reports: No Symptoms Skin: Reports: Pallor Psychiatric: Reports: No Symptoms Neurological: Reports: No Symptoms Hematologic/Lymphatic: Reports: No Symptoms Immunologic: Reports: No Symptoms Exam - Exam Exam: See Below - Vital Signs Vital Signs: Last Vital Signs Temp 97.3 F 06/13/19 06:28 Pulse 69 06/13/19 06:28 Resp 20 06/13/19 06:28 BP 136/79 06/13/19 06:28 Pulse Ox 94 L 06/13/19 06:28 Weight: 180 lb - Exam Quality Assessment: Supplemental Oxygen (Oxygen at 3 L), DVT Prophylaxis (Cross covered with low molecular weight heparin) General: Alert, Oriented, 4 HEENT: Conjunctiva Clear, Mucosa Moist & [place], Glasses Neck: Supple Lungs: Normal Respiratory Effort, Decreased Breath Sounds, Other (Adventitious sounds left middle quad) Cardiovascular: Regular Rate, Regular Rhythm, Normal S1, Normal S2 GI/Abdominal Exam: Normal Bowel Sounds, Soft, Non-Tender (Female) Exam: Deferred Extremities: No Pedal Edema, Other (Lower extremities no palpable cord). No: Trav's Sign (Give), Leg Pain, Increased Warmth, Redness Peripheral Pulses: 2+: Radial (L), Radial (R) Skin: Warm, Dry, Intact Neurological: Cranial Nerves Intact, Normal Speech Neuro Extensive - Mental Status: Alert, Oriented x3, Normal Mood/Affect, Normal Cognition Neuro Extensive - Motor, Sensory, Reflexes: CN II-XII Intact, Normal Gait Psychiatric: Alert, Normal Affect, Normal Mood - Patient Data Lab Results Last 24 hrs: Laboratory Results - last 24 hr 06/12/19 06/12/19 06/12/19 Range/Units 11:40 11:40 11:40 WBC 20.04 H (5.00-10.00) 10^3/uL RBC 4.51 (3.80-5.50) 10^6/uL Hgb 14.4 D (12.0-16.0) g/dL Hct 44.1 (37.0-47.0) % MCV 97.8 H D (82.0-92.0) fL MCH 31.9 H (27.0-31.0) pg MCHC 32.7 (32.0-36.0) g/dL RDW 13.0 (11.5-14.5) % Plt Count 163 D (150-400) 10^3/uL MPV 10.0 (7.4-10.4) fL Immature Gran % (Auto) 0.5 (0.0-5.0) % Neut % (Auto) 76.1 H (50.0-70.0) % Lymph % (Auto) 14.8 L (20.0-40.0) % Quay % (Auto) 8.3 H (2.0-8.0) % Eos % (Auto) 0.2 L (1.0-3.0) % Baso % (Auto) 0.1 (0.0-1.0) % Immature Gran # (Auto) 0.10 (0.00-0.50) 10^3/uL Neut # (Auto) 15.22 H (2.50-7.00) 10^3/uL Lymph # (Auto) 2.97 (1.00-4.00) 10^3/uL Quay # (Auto) 1.67 H (0.10-0.80) 10^3/uL Eos # (Auto) 0.05 L (0.10-0.30) 10^3/uL Baso # (Auto) 0.03 (0.00-0.10) 10^3/uL ESR (0-20) mm/hr PT (8.9-11.4) SEC INR (0.9-1.1) APTT (23.1-31.9) SEC D-Dimer, Quantitative 3250 H (<400) ng/mL Sodium 138 (136-145) mmol/L Potassium 3.7 (3.3-5.3) mmol/L Chloride 98 (98-115) mmol/L Carbon Dioxide 26.6 (21.0-32.0) mmol/L Anion Gap 17.1 H (5-15) mmol/L BUN 16 (6-25) mg/dL Creatinine 0.85 (0.51-1.17) mg/dL Est Cr Clr Drug Dosing 43.65 mL/min Estimated GFR (MDRD) > 60 mL/min Glucose 196 H (75 - 99) mg/dL Lactic Acid (0.4-2.0) mmol/L Calcium 9.7 (8.7-10.3) mg/dL Total Bilirubin 1.3 H (0.2-1.0) mg/dL AST 20 (15-37) U/L ALT 23 (12-78) U/L Alkaline Phosphatase 61 (46-116) IU/L Troponin I 0.04 (0.00-0.070) ng/mL C-Reactive Protein (0.0-0.9) mg/dL B-Natriuretic Peptide 25 (0-100) pg/mL Total Protein 8.3 H (6.4-8.2) g/dL Albumin 3.44 (3.00-4.80) g/dL 06/12/19 06/12/19 06/12/19 Range/Units 11:40 11:40 11:40 WBC (5.00-10.00) 10^3/uL RBC (3.80-5.50) 10^6/uL Hgb (12.0-16.0) g/dL Hct (37.0-47.0) % MCV (82.0-92.0) fL MCH (27.0-31.0) pg MCHC (32.0-36.0) g/dL RDW (11.5-14.5) % Plt Count (150-400) 10^3/uL MPV (7.4-10.4) fL Immature Gran % (Auto) (0.0-5.0) % Neut % (Auto) (50.0-70.0) % Lymph % (Auto) (20.0-40.0) % Quay % (Auto) (2.0-8.0) % Eos % (Auto) (1.0-3.0) % Baso % (Auto) (0.0-1.0) % Immature Gran # (Auto) (0.00-0.50) 10^3/uL Neut # (Auto) (2.50-7.00) 10^3/uL Lymph # (Auto) (1.00-4.00) 10^3/uL Quay # (Auto) (0.10-0.80) 10^3/uL Eos # (Auto) (0.10-0.30) 10^3/uL Baso # (Auto) (0.00-0.10) 10^3/uL ESR (0-20) mm/hr PT 10.2 (8.9-11.4) SEC INR 1.0 (0.9-1.1) APTT 29.1 (23.1-31.9) SEC D-Dimer, Quantitative (<400) ng/mL Sodium (136-145) mmol/L Potassium (3.3-5.3) mmol/L Chloride (98-115) mmol/L Carbon Dioxide (21.0-32.0) mmol/L Anion Gap (5-15) mmol/L BUN (6-25) mg/dL Creatinine (0.51-1.17) mg/dL Est Cr Clr Drug Dosing mL/min Estimated GFR (MDRD) mL/min Glucose (75 - 99) mg/dL Lactic Acid 1.8 (0.4-2.0) mmol/L Calcium (8.7-10.3) mg/dL Total Bilirubin (0.2-1.0) mg/dL AST (15-37) U/L ALT (12-78) U/L Alkaline Phosphatase (46-116) IU/L Troponin I (0.00-0.070) ng/mL C-Reactive Protein < 0.2 (0.0-0.9) mg/dL B-Natriuretic Peptide (0-100) pg/mL Total Protein (6.4-8.2) g/dL Albumin (3.00-4.80) g/dL 06/12/19 06/12/19 06/13/19 Range/Units 18:40 22:35 07:40 WBC 15.98 H (5.00-10.00) 10^3/uL RBC 3.91 (3.80-5.50) 10^6/uL Hgb 12.6 D (12.0-16.0) g/dL Hct 38.6 (37.0-47.0) % MCV 98.7 H (82.0-92.0) fL MCH 32.2 H (27.0-31.0) pg MCHC 32.6 (32.0-36.0) g/dL RDW 13.0 (11.5-14.5) % Plt Count 123 L (150-400) 10^3/uL MPV 10.7 H (7.4-10.4) fL Immature Gran % (Auto) 0.4 (0.0-5.0) % Neut % (Auto) 79.9 H (50.0-70.0) % Lymph % (Auto) 10.5 L (20.0-40.0) % Quay % (Auto) 8.8 H (2.0-8.0) % Eos % (Auto) 0.3 L (1.0-3.0) % Baso % (Auto) 0.1 (0.0-1.0) % Immature Gran # (Auto) 0.06 (0.00-0.50) 10^3/uL Neut # (Auto) 12.79 H (2.50-7.00) 10^3/uL Lymph # (Auto) 1.67 (1.00-4.00) 10^3/uL Quay # (Auto) 1.40 H (0.10-0.80) 10^3/uL Eos # (Auto) 0.04 L (0.10-0.30) 10^3/uL Baso # (Auto) 0.02 (0.00-0.10) 10^3/uL ESR 78 H (0-20) mm/hr PT (8.9-11.4) SEC INR (0.9-1.1) APTT (23.1-31.9) SEC D-Dimer, Quantitative (<400) ng/mL Sodium (136-145) mmol/L Potassium (3.3-5.3) mmol/L Chloride (98-115) mmol/L Carbon Dioxide (21.0-32.0) mmol/L Anion Gap (5-15) mmol/L BUN (6-25) mg/dL Creatinine (0.51-1.17) mg/dL Est Cr Clr Drug Dosing mL/min Estimated GFR (MDRD) mL/min Glucose (75 - 99) mg/dL Lactic Acid (0.4-2.0) mmol/L Calcium (8.7-10.3) mg/dL Total Bilirubin (0.2-1.0) mg/dL AST (15-37) U/L ALT (12-78) U/L Alkaline Phosphatase (46-116) IU/L Troponin I 0.06 (0.00-0.070) ng/mL C-Reactive Protein (0.0-0.9) mg/dL B-Natriuretic Peptide (0-100) pg/mL Total Protein (6.4-8.2) g/dL Albumin (3.00-4.80) g/dL 06/13/19 Range/Units 07:40 WBC (5.00-10.00) 10^3/uL RBC (3.80-5.50) 10^6/uL Hgb (12.0-16.0) g/dL Hct (37.0-47.0) % MCV (82.0-92.0) fL MCH (27.0-31.0) pg MCHC (32.0-36.0) g/dL RDW (11.5-14.5) % Plt Count (150-400) 10^3/uL MPV (7.4-10.4) fL Immature Gran % (Auto) (0.0-5.0) % Neut % (Auto) (50.0-70.0) % Lymph % (Auto) (20.0-40.0) % Quay % (Auto) (2.0-8.0) % Eos % (Auto) (1.0-3.0) % Baso % (Auto) (0.0-1.0) % Immature Gran # (Auto) (0.00-0.50) 10^3/uL Neut # (Auto) (2.50-7.00) 10^3/uL Lymph # (Auto) (1.00-4.00) 10^3/uL Quay # (Auto) (0.10-0.80) 10^3/uL Eos # (Auto) (0.10-0.30) 10^3/uL Baso # (Auto) (0.00-0.10) 10^3/uL ESR (0-20) mm/hr PT (8.9-11.4) SEC INR (0.9-1.1) APTT (23.1-31.9) SEC D-Dimer, Quantitative (<400) ng/mL Sodium 140 (136-145) mmol/L Potassium 3.9 (3.3-5.3) mmol/L Chloride 103 (98-115) mmol/L Carbon Dioxide 26.1 (21.0-32.0) mmol/L Anion Gap 14.8 (5-15) mmol/L BUN 13 (6-25) mg/dL Creatinine 0.68 (0.51-1.17) mg/dL Est Cr Clr Drug Dosing 54.56 mL/min Estimated GFR (MDRD) > 60 mL/min Glucose 125 H (75 - 99) mg/dL Lactic Acid (0.4-2.0) mmol/L Calcium 8.9 (8.7-10.3) mg/dL Total Bilirubin 0.8 (0.2-1.0) mg/dL AST 26 (15-37) U/L ALT 22 (12-78) U/L Alkaline Phosphatase 52 (46-116) IU/L Troponin I 0.04 (0.00-0.070) ng/mL C-Reactive Protein (0.0-0.9) mg/dL B-Natriuretic Peptide (0-100) pg/mL Total Protein 6.8 (6.4-8.2) g/dL Albumin 2.56 L (3.00-4.80) g/dL Result Diagrams: 06/13/19 07:40 06/13/19 07:40 Sepsis Event Note - Evaluation Sepsis Screening Result: No Definite Risk - Focused Exam Vital Signs: Vital Signs Temp Pulse Resp BP Pulse Ox 06/13/19 06:28 97.3 F 69 20 136/79 94 L 06/13/19 03:00 98.8 F 80 22 H 131/77 93 L 06/12/19 22:51 99.3 F 89 20 158/81 H 93 L Date Exam was Performed: 06/14/19 Time Exam was Performed: 09:11 Problem List Initiated/Reviewed/Updated: Yes Orders Last 24hrs: Active Orders 24 hr Category Date Time Status Patient Status [ADT] Routine ADT 06/12/19 14:59 Active Cardiac Monitoring [RC] 0300,0700,1100,1500,1900,2300 Care 06/12/19 19:32 Active Communication Order [RC] ROUTINE Care 06/13/19 07:56 Active Oxygen Therapy [RC] PRN Care 06/12/19 18:44 Active RT Incentive Spirometry [RC] Q2HWA Care 06/12/19 19:34 Active Up With Assistance [RC] DAILY Care 06/12/19 18:57 Active Vital Signs [RC] Q4H Care 06/12/19 19:32 Active Regular Diet [DIET] Diet 06/12/19 Dinner Active Venous Doppler Lwr Ext Bi [US] Routine Exams 06/12/19 20:51 Ordered ANTICARDIOLIPIN AB, IGG/M, QN [REF] Stat Lab 06/12/19 18:40 Received BETA-2 GLYCOPROTEIN I AB,G/M [REF] Routine Lab 06/12/19 18:40 Received CORONAVIRUS COVID-19 PCR PHL Stat Lab 06/12/19 14:55 Received CULTURE BLOOD [BC] Stat Lab 06/12/19 12:50 Received CULTURE BLOOD [BC] Stat Lab 06/12/19 14:08 Received CULTURE SPUTUM + SMEAR [RM] Routine Lab 06/12/19 20:44 Ordered FACTOR V LEIDEN MUTATION [REF] Routine Lab 06/12/19 15:08 Ordered FIBRINOGEN [REF] Stat Lab 06/12/19 18:40 Received MISC TEST Stat Lab 06/12/19 18:40 Received PROCALCITONIN [REF] Routine Lab 06/12/19 11:40 Received STREP PNEUMONIAE ANTIGEN [MREF] Routine Lab 06/12/19 19:17 Ordered VANCOMYCIN TROUGH [CHEM] Timed Lab 06/15/19 19:30 Ordered Acetaminophen [Tylenol Extra Strength] Med 06/12/19 19:33 Active 1,000 mg PO Q6H PRN B.Bif/B.Long/L.Acidoph/L.Rhamn [Multi-Katy Plus] Med 06/12/19 21:00 Active 1 cap PO BID Enoxaparin [Lovenox] Med 06/12/19 20:00 Active 80 mg SUBCUT Q12H Escitalopram [Lexapro] Med 06/12/19 21:00 Active 10 mg PO BEDTIME Levofloxacin/Dextrose 5%-Water [Levaquin in D5W 250 MG/ Med 06/14/19 13:30 Active 50 ML] 750 mg Premix Bag 1 bag IV Q48H Melatonin Med 06/12/19 21:00 Active 6 mg PO BEDTIME Omeprazole Med 06/13/19 07:30 Active 20 mg PO ACBREAKFAST Pharmacy to Dose - Vancomycin Med 06/12/19 19:00 Pending 1 dose .XX ASDIRECTED Trolamine Salicylate/Aloe Vera [Aspercreme 10%] Med 06/12/19 19:30 Active 0 gm TOP TID PRN Vancomycin 1.25 gm Med 06/12/19 20:00 Active Sodium Chloride 0.9% [Normal Saline] 250 ml IV Q24H nitrofurantoin macrocrystaL [Macrodantin] Med 06/12/19 21:00 Active 50 mg PO BEDTIME polyethylene glycoL 3350 [MiraLAX] Med 06/13/19 08:00 Active 17 gm PO 0800 predniSONE Med 06/13/19 09:00 Active 7.5 mg PO DAILY Resuscitation Status Routine Resus Stat 06/12/19 18:43 Ordered EKG 12 Lead [EK] Routine Ther 06/12/19 11:38 Stop Req Medication Orders Acetaminophen (Tylenol Extra Strength) 1,000 mg PO Q6H PRN PRN Reason: Pain Last Admin: 06/13/19 03:39 Dose: 1,000 mg Admin: 06/12/19 21:24 Dose: 1,000 mg Enoxaparin Sodium (Lovenox) 80 mg SUBCUT Q12H [facility] Last Admin: 06/13/19 07:50 Dose: 80 mg Admin: 06/12/19 20:06 Dose: 80 mg Escitalopram Oxalate (Lexapro) 10 mg PO BEDTIME [facility] Last Admin: 06/12/19 21:24 Dose: 10 mg Vancomycin HCl 1.25 gm/ Sodium (Chloride) 250 mls @ 166.667 mls/hr IV Q24H [facility] Last Admin: 06/12/19 20:01 Dose: 166.667 mls/hr Levofloxacin/Dextrose 750 mg/ (Premix) 150 mls @ 100 mls/hr IV Q48H [facility] Lactobacillus Acidophilus/Rhamnosus (Multi-Katy Plus) 1 cap PO BID [facility] Last Admin: 06/13/19 08:00 Dose: 1 cap Admin: 06/12/19 21:24 Dose: 1 cap Melatonin (Melatonin) 6 mg PO BEDTIME [facility] Last Admin: 06/12/19 21:24 Dose: 6 mg Nitrofurantoin Macrocrystals (Macrodantin) 50 mg PO BEDTIME [facility] Last Admin: 06/13/19 08:49 Dose: Omeprazole (Omeprazole) 20 mg PO ACBREAKFAST [facility] Last Admin: 06/13/19 07:50 Dose: 20 mg Polyethylene Glycol (Miralax) 17 gm PO 0800 [facility] Last Admin: 06/13/19 07:53 Dose: 17 gm Prednisone (Prednisone) 7.5 mg PO DAILY [facility] Last Admin: 06/13/19 08:00 Dose: 7.5 mg Trolamine Salicylate (Aspercreme 10%) 0 gm TOP TID PRN PRN Reason: Pain Vancomycin HCl (Pharmacy To Dose - Vancomycin) 1 dose .XX ASDIRECTED [facility] Assessment/Plan Comment:: History of present illness Kate is an 88-year-old female who resides in [facility] was admitted into inpatient status on 420 through the ED with a diagnosis of pneumonia and pulmonary embolus. Patient states that she started with some shortness of breath along with some left-sided breast pain the day prior to admission. Pertinent ED findings/work-up WBC, 20,000, neutrophilia 76% D-Dimer 3250 Troponin normal Lactate 1.8, CRP < 0.[address] Small left pleural effusion, Multiple hypodense filling defects segmental/subsegmental branches left lower /upper lobes Chest x-ray, left basilar pulmonary infiltrate with right basilar subsegmental atelectasis __ Hospital course to date No overnight concerns, patient was admitted started on Levaquin and Vancomycin for pneumonia, LMWH was initiated for her PE until her clinical picture became clear of no need for surgical/thrombolytic. She was placed on oxygen, Hypercoagulability work-up was completed prior to the initiation of her heparin. Placed on telemetry. Covid-19 testing completed due to her SOB/ pneumonia and her likely hypercoagulable state. Primary hospital problem --Pulmonary embolus bilateral lobes left with concomitant pulmonary infiltrate --Right basilar atelectasis Chronic conditions Hx of UTI's, chronic UPJ obstruction/stents--prophylaxis low-dose Macrodantin Polymyalgia rheumatica, chronic glucocorticoid therapy HTN, controlled without medications HLD, controlled without medications Cervical spine degenerative disease, acetaminophen Osteoarthritis, acetaminophen Obesity, BMI 33% Insomnia, Melatonin Depression, SSRI Disposition/overall plan --Continue current antibiotics, renal dose, pharmacy to dose/vancomycin trough --Start factor Xa inhibitor apixaban @8pm today --Discontinue LMWH --Ultrasound, BLE --Trend inflammatory markers/oxygen requirements/pulmonary status --Respiratory c/s with aggressive ICS/pulmonary toilet, TKS >94%, may need Venturi --Patient education on new medication Eliquis --Continue telemetry since starting factor Xa inhibitor --Covid-19 precautions - Mortality Measure Prognosis:: Good
[2019-06-13] MEDS ORDERED: Apixaban 5 MG Tab PO ONE (20:00)
[2019-06-13] MEDS: Apixaban 5 MG Tab PO SCH (20:45)
[2019-06-13] MEDS: diphenhydrAMINE 25 MG Cap PO SCH (20:45)
[2019-06-13] MEDS: Acetaminophen 500 MG Tab PO SCH (20:46)
[2019-06-13] MEDS: Escitalopram 10 MG Tab PO SCH (20:46)
[2019-06-13] MEDS: Melatonin 3 MG Tab PO SCH (20:46)
[2019-06-14] MEDS: Omeprazole 20 MG Cap.CR PO SCH (07:46)
[2019-06-14] MEDS: Polyethylene Glycol 3350 Powder 17 GM Packet PO SCH (07:57)
[2019-06-14] MEDS: B.Bifidum/B.Longum/L.Acidophilus/L.Rhamnosus (Probiotic) Cap PO SCH ×2 (08:00→20:30)
[2019-06-14] MEDS: predniSONE 5 MG Tab PO SCH (08:00)
[2019-06-14] MEDS: Acetaminophen 500 MG Tab PO PRN ×2 (08:02→15:26)
[2019-06-14] MEDS: Apixaban 5 MG Tab PO SCH ×2 (09:09→20:31)
--- NOTE | 2019-06-14 09:59 | PCM.PN ---
- General Info Date of Service: 06/14/19 Functional Status: Reports: Pain Controlled, Tolerating Diet, Urinating, New Symptoms (Slightly blood-tinged pink urine), Incentive Spirometry (Goal is 1000 , ). Denies: Ambulating - Review of Systems General: Reports: Fatigue HEENT: Reports: No Symptoms Pulmonary: Reports: Pleuritic Chest Pain (Very mild left pleuritic chest wall pain much improved since admission), Sputum (. Mild left pleuritic chest wall pain, much improved since admission). Denies: Shortness of Breath, Cough, Hemoptysis, Wheezing Cardiovascular: Reports: Chest Pain. Denies: Palpitations, Orthopnea, PND, Edema, Lightheadedness, Other Gastrointestinal: Reports: No Symptoms Genitourinary: Reports: Hematuria Musculoskeletal: Reports: No Symptoms. Denies: Leg Pain, Joint Pain, Joint Swelling Skin: Reports: Pallor. Denies: Cyanosis Neurological: Reports: No Symptoms - Patient Data Vitals - Most Recent: Last Vital Signs Temp 99.9 F 06/14/19 06:14 Pulse 78 06/14/19 06:14 Resp 20 06/14/19 06:14 BP 164/86 H 06/14/19 06:14 Pulse Ox 94 L 06/14/19 06:30 Weight - Most Recent: 180 lb I&O - Last 24 Hours: Intake & Output 06/13/19 06/14/19 06/14/19 22:59 06:59 14:59 Intake Total 380 50 Output Total 400 Balance 380 -350 Lab Results Last 24 Hours: Laboratory Results - last 24 hr 06/12/19 06/12/19 Range/Units 11:40 18:40 Fibrinogen 714 H* (158-388) mg/dL Procalcitonin 0.15 H (<0.10) ng/mL Red Results Last 24 Hours: Microbiology 06/12/19 14:08 Aerobic Blood Culture - Preliminary Blood - Arm, Left NO GROWTH AFTER 1 DAY Anaerobic Blood Culture - Preliminary NO GROWTH AFTER 1 DAY 06/12/19 12:50 Aerobic Blood Culture - Preliminary Blood - Arm, Left NO GROWTH AFTER 1 DAY Anaerobic Blood Culture - Preliminary NO GROWTH AFTER 1 DAY Med Orders - Current: Current Medications Acetaminophen (Tylenol Extra Strength) 1,000 mg PO BID@0900,1400 PRN PRN Reason: Pain Last Admin: 04/22/20 08:02 Dose: 1,000 mg Acetaminophen (Tylenol Extra Strength) 1,000 mg PO BEDTIME [facility] Last Admin: 06/13/19 20:46 Dose: 1,000 mg Apixaban (Eliquis) 10 mg PO BID@0800,2000 [facility] Last Admin: 06/14/19 09:09 Dose: 10 mg Diphenhydramine HCl (Benadryl) 50 mg PO BEDTIME [facility] Last Admin: 06/13/19 20:45 Dose: 50 mg Escitalopram Oxalate (Lexapro) 10 mg PO BEDTIME [facility] Last Admin: 06/13/19 20:46 Dose: 10 mg Vancomycin HCl 1.25 gm/ Sodium (Chloride) 250 mls @ 166.667 mls/hr IV Q24H [facility] Last Admin: 06/13/19 20:44 Dose: 166.667 mls/hr Levofloxacin/Dextrose 750 mg/ (Premix) 150 mls @ 100 mls/hr IV Q48H [facility] Lactobacillus Acidophilus/Rhamnosus (Multi-Katy Plus) 1 cap PO BID [facility] Last Admin: 06/14/19 08:00 Dose: 1 cap Melatonin (Melatonin) 6 mg PO BEDTIME [facility] Last Admin: 06/13/19 20:46 Dose: 6 mg Nitrofurantoin Macrocrystals (Macrodantin) 50 mg PO BEDTIME [facility] Last Admin: 06/13/19 20:47 Dose: Not Given Omeprazole (Omeprazole) 20 mg PO ACBREAKFAST [facility] Last Admin: 06/14/19 07:46 Dose: 20 mg Polyethylene Glycol (Miralax) 17 gm PO 0800 [facility] Last Admin: 06/14/19 07:57 Dose: 17 gm Prednisone (Prednisone) 7.5 mg PO DAILY [facility] Last Admin: 06/14/19 08:00 Dose: 7.5 mg Trolamine Salicylate (Aspercreme 10%) 0 gm TOP TID PRN PRN Reason: Pain Vancomycin HCl (Pharmacy To Dose - Vancomycin) 1 dose .XX ASDIRECTED [facility] Discontinued Medications Acetaminophen (Tylenol Extra Strength) 1,000 mg PO Q6H PRN PRN Reason: Pain Last Admin: 06/13/19 03:39 Dose: 1,000 mg Apixaban (Eliquis) 5 mg PO BID ONE Stop: 06/13/19 20:01 Enoxaparin Sodium (Lovenox) 0 mg SUBCUT BID [facility] Enoxaparin Sodium (Lovenox) 80 mg SUBCUT Q12H [facility] Last Admin: 06/12/19 20:27 Dose: Not Given Enoxaparin Sodium (Lovenox) 80 mg SUBCUT Q12H [facility] Last Admin: 06/13/19 07:50 Dose: 80 mg Levofloxacin/Dextrose (Levaquin In D5w 500 Mg/100 Ml) Confirm Administered Dose 100 mls @ as directed IV .STK-MED ONE Stop: 06/12/19 13:21 Last Admin: 06/12/19 14:13 Dose: Not Given Sodium Chloride (Normal Saline) Confirm Administered Dose 1,000 mls @ as directed .ROUTE .STK-MED ONE Stop: 06/12/19 13:22 Last Admin: 06/12/19 14:13 Dose: Not Given Sodium Chloride (Normal Saline) 50 mls @ 200 mls/min IV ONETIME ONE Stop: 06/12/19 13:32 Last Admin: 06/12/19 13:34 Dose: 200 mls/min Sodium Chloride (Normal Saline) 50 mls @ 200 mls/min IV ONETIME ONE Stop: 06/12/19 13:33 Last Admin: 06/12/19 13:34 Dose: 200 mls/min Levofloxacin/Dextrose 500 mg/ (Premix) 100 mls @ 200 mls/hr IV ONETIME ONE Stop: 06/12/19 13:59 Last Admin: 06/12/19 13:30 Dose: 200 mls/hr Sodium Chloride (Normal Saline) 1,000 mls @ 75 mls/hr IV ASDIRECTED [facility] Last Admin: 06/12/19 13:30 Dose: 75 mls/hr Iopamidol (Isovue-370 (76%)) 100 ml IV ONETIME ONE Stop: 06/12/19 13:32 Last Admin: 06/12/19 13:33 Dose: 75 ml Non-Formulary Medication (Misoprostol) 200 mcg PO DAILY [facility] - Exam Quality Assessment: Supplemental Oxygen, DVT Prophylaxis General: Alert, Oriented, Cooperative Neck: Supple Lungs: Crackles Cardiovascular: Regular Rate, Regular Rhythm, No Murmurs GI/Abdominal Exam: Normal Bowel Sounds, Soft (Female) Exam: Deferred Extremities: No Pedal Edema Peripheral Pulses: 2+: Radial (L), Radial (R) Skin: Warm, Dry, Intact Neurological: Normal Speech, Normal Tone Psy/Mental Status: Alert, Normal Affect, Normal Mood Sepsis Event Note - Evaluation Sepsis Screening Result: No Definite Risk - Focused Exam Vital Signs: Vital Signs Temp Pulse Resp BP Pulse Ox Pulse Ox 06/14/19 06:30 94 L 06/14/19 06:14 99.9 F 78 20 164/86 H 94 L 06/14/19 03:00 99.3 F 70 20 157/84 H 96 06/13/19 23:00 100.0 F 77 20 136/80 95 Date Exam was Performed: 06/14/19 Time Exam was Performed: 09:34 - Problem List Review Problem List Initiated/Reviewed/Updated: Yes - My Orders Last 24 Hours: My Active Orders 06/13/19 20:00 Apixaban [Eliquis] 10 mg PO BID@0800,199906/13/19 21:00 Acetaminophen [Tylenol Extra Strength] 1,000 mg PO BEDTIME diphenhydrAMINE [Benadryl] 50 mg PO BEDTIME - Plan Plan:: History of present illness Kate is an 88-year-old female who resides in [facility] was admitted into inpatient status on 420 through the ED with a diagnosis of pneumonia and pulmonary embolus. Patient states that she started with some shortness of breath along with some left-sided breast pain the day prior to admission. Pertinent ED findings/work-up WBC, 20,000, neutrophilia 76% D-Dimer 3250 Troponin normal Lactate 1.8, CRP < 0.[address] Small left pleural effusion, Multiple hypodense filling defects segmental/subsegmental branches left lower /upper lobes Chest x-ray, left basilar pulmonary infiltrate with right basilar subsegmental atelectasis __ Hospital course to date Overnight: Nurses notes states ST elevation on telemetry lead II, at some point during the night, provider not notified, reviewed telemetry not appreciable, normal, patient asymptomatic, patient was admitted started on Levaquin and Vancomycin for pneumonia, LMWH was initiated for her PE until her clinical picture became clear of no need for surgical/thrombolytic. She was placed on oxygen, Hypercoagulability work-up was completed prior to the initiation of her heparin. Placed on telemetry. Covid-19 testing completed due to her SOB/ pneumonia and her likely hypercoagulable state. Day 2: No overnight calls or concerns, patient sitting in chair much less left-sided pleuritic chest pain, new concerns of slight pink-tinged urine since starting Eliquis, no clots, no dark stools or bleeding gums. New telemetry strips, no concerns, oxygen 93% on 3 L, needs more incentive spirometer encouragement, no short of breath no fever or mucus, Denies hemoptysis or cough. Elevated fibrinogen. Doubtful bacterial pneumonia component, procalcitonin ~0.15 Primary hospital problem --Pulmonary embolus bilateral lobes, less convinced of concomitant pneumonia --Right basilar atelectasis Chronic conditions Hx of UTI's, chronic UPJ obstruction/stents--prophylaxis low-dose Macrodantin Polymyalgia rheumatica, chronic glucocorticoid therapy HTN, has been controlled without medications, slightly high today low-dose lisinopril HLD, controlled without medications Cervical spine degenerative disease, acetaminophen Osteoarthritis, acetaminophen Obesity, BMI 33% Insomnia, Melatonin Depression, SSRI Disposition/overall plan --Continue vancomycin, --Continue factor Xa inhibitor apixaban --Ultrasound, BLE today --Trend inflammatory markers/oxygen requirements/pulmonary status --Will need further encouragement and aggressive ICS/pulmonary toilet, TKS >94% , may need Venturi --Add low-dose TRINH inhibitor --Going patient education on new medication Eliquis --Continue telemetry for today and nurses concerns first night --Covid-19 precautions, expect results back today --TEDS during day --Monitor bleeding burden/hgb --Patient's daughter Kylah Irving @ [phone] was notified of patient's condition/prognosis all questions answered. Discharge planning --Anticipate discharge Wednesday, likely could go back to [facility], nursing to discuss with Lisa at facility, may need oxygen, will submit oxygen documents --Added low-dose TRINH inhibitor
[2019-06-14] MEDS: Lisinopril 5 MG Tab PO SCH (11:33)
[2019-06-14] MEDS ORDERED: Levofloxacin/Dextrose 5%-Water 750 MG in Premix Bag 1 BAG IV SCH (13:30)
[2019-06-14] MEDS: Levofloxacin/Dextrose 5%-Water 500 MG in Premix Bag 1 BAG IV SCH (13:32)
[2019-06-14] MEDS: Levofloxacin/Dextrose 5%-Water 250 MG in Premix Bag 1 BAG IV SCH (14:35)
[2019-06-14] MEDS: diphenhydrAMINE 25 MG Cap PO SCH (20:30)
[2019-06-14] MEDS: Acetaminophen 500 MG Tab PO SCH (20:31)
[2019-06-14] MEDS: Melatonin 3 MG Tab PO SCH (20:31)
[2019-06-14] MEDS: Nitrofurantoin Macrocrystal 50 MG Cap PO SCH (20:32)
[2019-06-14] MEDS: Escitalopram 10 MG Tab PO SCH (20:32)
[2019-06-15] MEDS: Omeprazole 20 MG Cap.CR PO SCH ×2 (06:11→06:44)
[2019-06-15] MEDS: predniSONE 5 MG Tab PO SCH (08:01)
[2019-06-15] MEDS: Polyethylene Glycol 3350 Powder 17 GM Packet PO SCH (08:02)
[2019-06-15] MEDS: B.Bifidum/B.Longum/L.Acidophilus/L.Rhamnosus (Probiotic) Cap PO SCH ×2 (08:02→20:29)
[2019-06-15] MEDS: Lisinopril 5 MG Tab PO SCH (09:25)
[2019-06-15] MEDS: Apixaban 5 MG Tab PO SCH ×2 (09:44→20:29)
--- NOTE | 2019-06-15 09:51 | PCM.PN ---
- General Info Date of Service: 06/15/19 Functional Status: Reports: Pain Controlled, Tolerating Diet, Incentive Spirometry (800ml with goal of 1500 per ht/wt). Denies: Ambulating - Review of Systems General: Reports: Other HEENT: Reports: No Symptoms Pulmonary: Denies: Shortness of Breath, Pleuritic Chest Pain, Cough, Sputum, Hemoptysis, Wheezing Cardiovascular: Denies: Chest Pain, Palpitations, Orthopnea, PND, Edema Genitourinary: Reports: Hematuria (Slight pink-tinged urine) Musculoskeletal: Reports: No Symptoms Skin: Reports: No Symptoms Neurological: Denies: Confusion Psychiatric: Denies: Confusion, Agitation - Patient Data Vitals - Most Recent: Last Vital Signs Temp 97.9 F 06/15/19 06:08 Pulse 72 06/15/19 08:12 Resp 20 06/15/19 06:08 BP 149/78 H 06/15/19 09:25 Pulse Ox 85 L 06/15/19 08:55 Weight - Most Recent: 180 lb I&O - Last 24 Hours: Intake & Output 06/14/19 06/15/19 06/15/19 22:59 06:59 14:59 Intake Total 500 150 Output Total 200 350 Balance 300 -200 Lab Results Last 24 Hours: Laboratory Results - last 24 hr 06/14/19 Range/Units 11:25 WBC 13.76 H (5.00-10.00) 10^3/uL RBC 3.96 (3.80-5.50) 10^6/uL Hgb 12.6 (12.0-16.0) g/dL Hct 39.2 (37.0-47.0) % MCV 99.0 H (82.0-92.0) fL MCH 31.8 H (27.0-31.0) pg MCHC 32.1 (32.0-36.0) g/dL RDW 13.0 (11.5-14.5) % Plt Count 153 (150-400) 10^3/uL MPV 10.0 (7.4-10.4) fL Immature Gran % (Auto) 0.4 (0.0-5.0) % Neut % (Auto) 85.4 H (50.0-70.0) % Lymph % (Auto) 7.7 L (20.0-40.0) % [place] % (Auto) 6.0 (2.0-8.0) % Eos % (Auto) 0.4 L (1.0-3.0) % Baso % (Auto) 0.1 (0.0-1.0) % Immature Gran # (Auto) 0.06 (0.00-0.50) 10^3/uL Neut # (Auto) 11.73 H (2.50-7.00) 10^3/uL Lymph # (Auto) 1.06 (1.00-4.00) 10^3/uL [place] # (Auto) 0.83 H (0.10-0.80) 10^3/uL Eos # (Auto) 0.06 L (0.10-0.30) 10^3/uL Baso # (Auto) 0.02 (0.00-0.10) 10^3/uL Erd Results Last 24 Hours: Microbiology 06/12/19 12:50 Aerobic Blood Culture - Preliminary Blood - Arm, Left Anaerobic Blood Culture - Preliminary NO GROWTH AFTER 2 DAYS 06/12/19 14:08 Aerobic Blood Culture - Preliminary Blood - Arm, Left NO GROWTH AFTER 2 DAYS Anaerobic Blood Culture - Preliminary NO GROWTH AFTER 2 DAYS Med Orders - Current: Current Medications Acetaminophen (Tylenol Extra Strength) 1,000 mg PO BID@0900,1400 PRN PRN Reason: Pain Last Admin: 06/14/19 15:26 Dose: 1,000 mg Acetaminophen (Tylenol Extra Strength) 1,000 mg PO BEDTIME [facility] Last Admin: 06/14/19 20:31 Dose: 1,000 mg Apixaban (Eliquis) 10 mg PO BID@0800,2000 [facility] Last Admin: 06/14/19 20:31 Dose: 10 mg Diphenhydramine HCl (Benadryl) 50 mg PO BEDTIME [facility] Last Admin: 06/14/19 20:30 Dose: 50 mg Escitalopram Oxalate (Lexapro) 10 mg PO BEDTIME [facility] Last Admin: 06/14/19 20:32 Dose: 10 mg Levofloxacin/Dextrose 500 mg/ (Premix) 100 mls @ 100 mls/hr IV Q48H [facility] Last Admin: 06/14/19 13:32 Dose: 100 mls/hr Levofloxacin/Dextrose 250 mg/ (Premix) 50 mls @ 100 mls/hr IV Q48H [facility] Last Admin: 06/14/19 14:35 Dose: 100 mls/hr Lactobacillus Acidophilus/Rhamnosus (Multi-Katy Plus) 1 cap PO BID [facility] Last Admin: 06/15/19 08:02 Dose: 1 cap Lisinopril (Prinivil) 5 mg PO DAILY [facility] Last Admin: 06/15/19 09:25 Dose: Not Given Melatonin (Melatonin) 6 mg PO BEDTIME [facility] Last Admin: 06/14/19 20:31 Dose: 6 mg Nitrofurantoin Macrocrystals (Macrodantin) 50 mg PO BEDTIME [facility] Last Admin: 06/14/19 20:32 Dose: 50 mg Omeprazole (Omeprazole) 20 mg PO ACBREAKFAST [facility] Last Admin: 06/15/19 06:44 Dose: Not Given Polyethylene Glycol (Miralax) 17 gm PO 0800 [facility] Last Admin: 06/15/19 08:02 Dose: 17 gm Prednisone (Prednisone) 7.5 mg PO DAILY [facility] Last Admin: 06/15/19 08:01 Dose: 7.5 mg Trolamine Salicylate (Aspercreme 10%) 0 gm TOP TID PRN PRN Reason: Pain Discontinued Medications Acetaminophen (Tylenol Extra Strength) 1,000 mg PO Q6H PRN PRN Reason: Pain Last Admin: 06/13/19 03:39 Dose: 1,000 mg Apixaban (Eliquis) 5 mg PO BID ONE Stop: 06/13/19 20:01 Enoxaparin Sodium (Lovenox) 0 mg SUBCUT BID [facility] Enoxaparin Sodium (Lovenox) 80 mg SUBCUT Q12H [facility] Last Admin: 06/12/19 20:27 Dose: Not Given Enoxaparin Sodium (Lovenox) 80 mg SUBCUT Q12H [facility] Last Admin: 06/13/19 07:50 Dose: 80 mg Levofloxacin/Dextrose (Levaquin In D5w 500 Mg/100 Ml) Confirm Administered Dose 100 mls @ as directed IV .STK-MED ONE Stop: 06/12/19 13:21 Last Admin: 06/12/19 14:13 Dose: Not Given Sodium Chloride (Normal Saline) Confirm Administered Dose 1,000 mls @ as directed .ROUTE .STK-MED ONE Stop: 06/12/19 13:22 Last Admin: 06/12/19 14:13 Dose: Not Given Sodium Chloride (Normal Saline) 50 mls @ 200 mls/min IV ONETIME ONE Stop: 06/12/19 13:32 Last Admin: 06/12/19 13:34 Dose: 200 mls/min Sodium Chloride (Normal Saline) 50 mls @ 200 mls/min IV ONETIME ONE Stop: 06/12/19 13:33 Last Admin: 06/12/19 13:34 Dose: 200 mls/min Levofloxacin/Dextrose 500 mg/ (Premix) 100 mls @ 200 mls/hr IV ONETIME ONE Stop: 06/12/19 13:59 Last Admin: 06/12/19 13:30 Dose: 200 mls/hr Sodium Chloride (Normal Saline) 1,000 mls @ 75 mls/hr IV ASDIRECTED [facility] Last Admin: 06/12/19 13:30 Dose: 75 mls/hr Vancomycin HCl 1.25 gm/ Sodium (Chloride) 250 mls @ 166.667 mls/hr IV Q24H [facility] Last Admin: 06/13/19 20:44 Dose: 166.667 mls/hr Levofloxacin/Dextrose 750 mg/ (Premix) 150 mls @ 100 mls/hr IV Q48H [facility] Iopamidol (Isovue-370 (76%)) 100 ml IV ONETIME ONE Stop: 06/12/19 13:32 Last Admin: 06/12/19 13:33 Dose: 75 ml Non-Formulary Medication (Misoprostol) 200 mcg PO DAILY [facility] - Exam Quality Assessment: Supplemental Oxygen (85% room air, requires 3 L oxygen nasal cannula), DVT Prophylaxis General: Alert, Oriented Neck: Supple, Trachea Midline, No JVD Lungs: Crackles Cardiovascular: Regular Rate, Regular Rhythm GI/Abdominal Exam: Normal Bowel Sounds, Soft (Female) Exam: Deferred Back Exam: No: CVA Tenderness (L), CVA Tenderness (R) Extremities: No Pedal Edema. No: Slow Capillary Refill, Trav's Sign Skin: Warm, Dry, Intact Neurological: Normal Speech, Normal Tone, Sensation Intact Psy/Mental Status: Alert, Normal Affect, Normal Mood. No: Agitated Sepsis Event Note - Evaluation Sepsis Screening Result: No Definite Risk - Focused Exam Vital Signs: Vital Signs Temp Pulse Resp BP BP Pulse Ox Pulse Ox 06/15/19 09:25 149/78 H 06/15/19 08:55 06/15/19 08:30 92 L 06/15/19 08:12 72 95 06/15/19 07:50 95 06/15/19 06:43 96 06/15/19 06:08 97.9 F 69 20 145/82 H 96 06/15/19 03:00 98.5 F 70 20 145/84 H 97 06/14/19 23:00 99.2 F 70 20 133/71 97 Pulse Ox 06/15/19 09:25 06/15/19 08:55 85 L 06/15/19 08:30 06/15/19 08:12 06/15/19 07:50 06/15/19 06:43 06/15/19 06:08 06/15/19 03:00 06/14/19 23:00 Date Exam was Performed: 06/16/19 Time Exam was Performed: 10:15 - Problem List Review Problem List Initiated/Reviewed/Updated: Yes - My Orders Last 24 Hours: My Active Orders 06/14/19 10:00 lisinopriL [Prinivil] 5 mg PO DAILY 06/14/19 11:49 Antiembolic Devices [RC] PER UNIT ROUTINE MAREN Hose [Antiembolic Hose] [OM.PC] Routine - Plan Plan:: History of present illness Kate is an 88-year-old female who resides in [facility] was admitted into inpatient status on 420 through the ED with a diagnosis of pneumonia and pulmonary embolus. Patient states that she started with some shortness of breath along with some left-sided breast pain the day prior to admission. Pertinent ED findings/work-up WBC, 20,000, neutrophilia 76% D-Dimer 3250 Troponin normal Lactate 1.8, CRP < 0.[address] Small left pleural effusion, Multiple hypodense filling defects segmental/subsegmental branches left lower /upper lobes Chest x-ray, left basilar pulmonary infiltrate with right basilar subsegmental atelectasis __ Hospital course to date Overnight: Nurses notes states ST elevation on telemetry lead II, at some point during the night, provider not notified, reviewed telemetry not appreciable, normal, patient asymptomatic, patient was admitted started on Levaquin and Vancomycin for pneumonia, LMWH was initiated for her PE until her clinical picture became clear of no need for surgical/thrombolytic. She was placed on oxygen, Hypercoagulability work-up was completed prior to the initiation of her heparin. Placed on telemetry. Covid-19 testing completed due to her SOB/ pneumonia and her likely hypercoagulable state. Day 2: No overnight calls or concerns, patient sitting in chair much less left-sided pleuritic chest pain, new concerns of slight pink-tinged urine since starting Eliquis, no clots, no dark stools or bleeding gums. New telemetry strips, no concerns, oxygen 93% on 3 L, needs more incentive spirometer encouragement, no short of breath no fever or mucus, Denies hemoptysis or cough. Elevated fibrinogen. Doubtful bacterial pneumonia component, procalcitonin ~0.15 Day 3: No overnight calls or concerns to on-call provider. Slight blood-tinged urine, very mild epistaxis however resolved. Requires 3 L nasal cannula as she drops 85% on room air. Will need ambulation in halls today as COVID-19 negative. Still waiting on acceptance to [facility] with oxygen, and concentrator will be set up for her. Pressure improved with low-dose TRINH inhibitor. No fever shortness of breath or chest pain. Moving inflammatory markers. Ultrasound to BLE was delayed until tomorrow Primary hospital problem --Pulmonary embolus bilateral lobes, less convinced of concomitant pneumonia --Hypoxemia, with COVID-19 testing --Right basilar atelectasis Chronic conditions Hx of UTI's, chronic UPJ obstruction/stents--prophylaxis low-dose Macrodantin Polymyalgia rheumatica, chronic glucocorticoid therapy HTN, has been controlled without medications, improved with low-dose lisinopril HLD, controlled without medications Cervical spine degenerative disease, acetaminophen Osteoarthritis, acetaminophen Obesity, BMI 33% Insomnia, Melatonin Depression, SSRI Disposition/overall plan --Discontinue vancomycin, --discontinue diphenhydramine hydrochloride/Benadryl, as high risk medication in elderly/excessive drowsiness for her --Continue factor Xa inhibitor apixaban --Humidified oxygen with nasal passage lubrication frequently --Ambulatory in halls today with telemetry --Ultrasound, BLE before discharge --Trend inflammatory markers/oxygen requirements/pulmonary status --Will need further encouragement and aggressive ICS/pulmonary toilet, TKS >94% , --Current ICS 800ml with goal of 1500 per ht/wt --Ongoing patient education on new medication Eliquis --TEDS during day --Monitor bleeding burden/hgb --No answer at daughter Kylah Irving @ [phone]; left msg stating to call nurses station for update. Discharge planning --Anticipate discharge tomorrow to [facility] with oxygen concentrator, patient has no chronic qualifying criteria for oxygen as outpatient. Patient was tested for COVID-19 with ongoing hypoxemia due to her pulmonary embolism without oxygen that would qualify her for outpatient oxygen though its not a chronic medical condition. Other options would include possible SNF here if qualification or long-term care while requiring oxygen. --Added low-dose TRINH inhibitor
[2019-06-15] MEDS: Acetaminophen 500 MG Tab PO PRN (14:48)
[2019-06-15] MEDS: Nitrofurantoin Macrocrystal 50 MG Cap PO SCH (20:28)
[2019-06-15] MEDS: Melatonin 3 MG Tab PO SCH (20:28)
[2019-06-15] MEDS: Acetaminophen 500 MG Tab PO SCH (20:29)
[2019-06-15] MEDS: Escitalopram 10 MG Tab PO SCH (20:29)
[2019-06-16] MEDS: Omeprazole 20 MG Cap.CR PO SCH ×2 (05:59→06:31)
[2019-06-16] MEDS: Polyethylene Glycol 3350 Powder 17 GM Packet PO SCH (07:57)
[2019-06-16] MEDS: Apixaban 5 MG Tab PO SCH (07:59)
[2019-06-16] MEDS: Lisinopril 5 MG Tab PO SCH (08:01)
[2019-06-16] MEDS: B.Bifidum/B.Longum/L.Acidophilus/L.Rhamnosus (Probiotic) Cap PO SCH (08:01)
[2019-06-16] MEDS: predniSONE 5 MG Tab PO SCH (08:01)
[2019-06-16 08:30] LABS: CHLORIDE,CL 106 mmol/L (98-115); SODIUM,NA 146 mmol/L (136-145)
[2019-06-16] MEDS: Levofloxacin/Dextrose 5%-Water 500 MG in Premix Bag 1 BAG IV SCH (10:10)
--- NOTE | 2019-06-16 10:15 | PCM.DCSUM1 ---
Discharge Summary - Hospital Course Diagnosis: Stroke: No - Discharge Data Discharge Date: 06/16/19 Discharge Disposition: Home, Self-Care 01 Condition: Good - Referral to Home Health Primary Care Physician: Valery Shaffer MD - Patient Instructions Diet: Usual Diet as Tolerated, Drink 8-10+ Glasses/Day Activity: Cough & Deep Breathe Driving: Do Not Drive Showering/Bathing: May Shower Notify Provider of: Nausea and/or Vomiting Other/Special Instructions: Monitor closely for any bleeding, may have some slight pink-tinged urine however if dark red blood in urine notify provider. Use your breathing machine as taught in hospital several times during the day while awake. Bring this device to your appointments. Take your medication exactly as prescribed. Important to wear your surgical support stockings during the day for the rest of your life. Moisten your nasal passages to prevent nose bleeds. Wear your oxgen at all times for now. - Discharge Plan *PRESCRIPTION DRUG MONITORING PROGRAM REVIEWED*: Not Applicable *COPY OF PRESCRIPTION DRUG MONITORING REPORT IN PATIENT JACOB: Not Applicable Prescriptions/Med Rec: Apixaban [Eliquis] 10 mg PO BID 4 Days #16 tab.ds.pk lisinopriL [Prinivil] 5 mg PO DAILY #30 tablet Home Medications: Home Meds Calcium Carbonate/Vitamin D3 [Calcium 600 + Vit D Tablet] 1 each PO BIDMEALS [History] Escitalopram [Lexapro] 10 mg PO DAILY 06/12/19 [History] Ferrous Sulfate 325 mg PO Q48H 06/12/19 [History] L.acidophil/L.plantar/Bifido 7 [Up4 Probiotics Adlt 50 Pls 25B] 1 tab PO BID [History] Trolamine Salicylate/Aloe Vera [Aspercreme 10%] 1 applic TOP TID PRN 06/12/19 [ History] miSOPROStoL [Cytotec] 200 mcg PO DAILY 06/12/19 [History] nitrofurantoin macrocrystaL [Nitrofurantoin] 50 mg PO BEDTIME 06/12/19 [History] polyethylene glycoL 3350 [MiraLAX] 17 gm PO 0800 06/12/19 [History] predniSONE [Prednisone] 7.5 mg PO DAILY 06/12/19 [History] Ascorbate Calcium [Vitamin C] 500 mg PO Q48H 06/13/19 [History] Apixaban [Eliquis] 10 mg PO BID 4 Days #16 tab.ds.pk 06/16/19 [Rx] lisinopriL [Prinivil] 5 mg PO DAILY #30 tablet 06/16/19 [Rx] Oxygen Therapy Mode: Nasal Cannula Forms: ED Department Discharge Referrals: Silverio Oropeza, [employer] [Family Provider] - (Anytime next week in [place], any provider available. ) - Discharge Summary/Plan Comment DC Time >30 min.: Yes Discharge Summary/Plan Comment: Final diagnosis --Pulmonary embolus left lobes, --DVT, partial thrombus distal popliteal RLE --Hypoxemia, with COVID-19 testing --Right basilar atelectasis Chronic conditions Hx of UTI's, chronic UPJ obstruction/stents--prophylaxis low-dose Macrodantin Polymyalgia rheumatica, chronic glucocorticoid therapy HTN, has been controlled without medications, improved with low-dose lisinopril HLD, controlled without medications Cervical spine degenerative disease, acetaminophen Osteoarthritis, acetaminophen Obesity, BMI 33% Insomnia, Melatonin Depression, SSRI History summary Kate is an 88-year-old female who resides in [facility] in [facility] was admitted into inpatient status on 06/11 through the ED with a diagnosis of pneumonia and pulmonary embolus. Patient stated that she started having some shortness of breath along wit some left-sided breast pain the day prior to admission. Pertinent ED findings/work-up WBC, 20,000, neutrophilia 76% D-Dimer 3250 Troponin normal Lactate 1.8, CRP < 0.[address] Small left pleural effusion, Multiple hypodense filling defects segmental/subsegmental branches left lower /upper lobes Chest x-ray, left basilar pulmonary infiltrate with right basilar subsegmental atelectasis Hospital course; First night: Nurses notes states ST elevation on telemetry lead II, at some point during the night, provider not notified, reviewed telemetry not appreciable, normal, patient asymptomatic, patient was admitted started on Levaquin and Vancomycin for pneumonia, LMWH was initiated for her PE until her clinical picture became clear of no need for surgical/thrombolytic. She was placed on oxygen, Hypercoagulability work-up was completed prior to the initiation of her heparin. Her fibrinogen level was elevated twice the upper limits of normal. She remained on telemetry throughout her hospital stay. Covid-19 testing completed she remained in precautions until the results came back negative. Day 2: No overnight calls or concerns, patient sitting in chair much less left-sided pleuritic chest pain, new concerns of slight pink-tinged urine since starting Eliquis, no clots, no dark stools or bleeding gums. New telemetry strips, no concerns, oxygen 93% on 3 L, needs more incentive spirometer encouragement, no short of breath no fever or mucus, Denies hemoptysis or cough. Elevated fibrinogen. Doubtful bacterial pneumonia component, procalcitonin ~0.15 Day 3: No overnight calls or concerns to on-call provider. Slight blood-tinged urine, very mild epistaxis however resolved. Requires 3 L nasal cannula as she drops 85% on room air. She ambulated in the halls after her COVID-19 returned negative. Her BP improved with low-dose TRINH inhibitor. No fever shortness of breath or chest pain. Improving inflammatory markers. She had bilateral ultrasounds day of discharge to her lower extremities, partial thrombus distal popliteal vein right lower extremity was noted, she remained on Levaquin however her vancomycin was discontinued. Her inflammatory markers trended down to normal. Patient was tested SaO2 and was 85% on room air at rest while awake which improved to 94% on 3 L nasal cannula of oxygen. Medication additions/changes/adjustments upon discharge --Apixaban, 10 mg p.o. twice daily x7 days then 5 mg p.o. twice daily (newly added) --Lisinopril 5mg PO daily (newly added) --Discontinue diphenhydramine hydrochloride/Benadryl, as high risk medication in elderly/excessive drowsiness for her --Humidified oxygen with nasal passage lubrication frequently Disposition --discharge back to [facility] with oxygen concentrator, --F/U [facility], detailed written instructions will be given to her --Encourage ICS 800ml with goal of 1500 per ht/wt --TEDS during day, will need fitted surgical support stockings on follow-up - General Info Date of Service: 06/13/19 Functional Status: Reports: Pain Controlled, Tolerating Diet, Incentive Spirometry. Denies: New Symptoms - Review of Systems General: Reports: No Symptoms HEENT: Reports: No Symptoms Pulmonary: Reports: No Symptoms Cardiovascular: Reports: No Symptoms Gastrointestinal: Reports: No Symptoms Genitourinary: Reports: No Symptoms Musculoskeletal: Reports: No Symptoms Skin: Reports: No Symptoms Neurological: Reports: No Symptoms - Patient Data Vitals - Most Recent: Last Vital Signs Temp 97.0 F 06/16/19 06:01 Pulse 59 L 06/16/19 06:01 Resp 20 06/16/19 06:01 BP 159/70 H 06/16/19 08:01 Pulse Ox 96 06/16/19 06:01 Weight - Most Recent: 180 lb I&O - Last 24 hours: Intake & Output 06/15/19 06/16/19 06/16/19 22:59 06:59 14:59 Intake Total 500 150 Output Total 300 Balance 500 -150 Lab Results - Last 24 hrs: Laboratory Results - last 24 hr 06/16/19 06/16/19 06/16/19 Range/Units 07:00 07:00 07:00 WBC 9.16 (5.00-10.00) 10^3/uL RBC 3.69 L (3.80-5.50) 10^6/uL Hgb 12.0 (12.0-16.0) g/dL Hct 37.0 (37.0-47.0) % MCV 100.3 H (82.0-92.0) fL MCH 32.5 H (27.0-31.0) pg MCHC 32.4 (32.0-36.0) g/dL RDW 12.8 (11.5-14.5) % Plt Count 181 (150-400) 10^3/uL MPV 9.8 (7.4-10.4) fL Immature Gran % (Auto) 1.1 (0.0-5.0) % Neut % (Auto) 68.9 (50.0-70.0) % Lymph % (Auto) 18.2 L (20.0-40.0) % [place] % (Auto) 9.1 H (2.0-8.0) % Eos % (Auto) 2.3 (1.0-3.0) % Baso % (Auto) 0.4 (0.0-1.0) % Immature Gran # (Auto) 0.10 (0.00-0.50) 10^3/uL Neut # (Auto) 6.31 (2.50-7.00) 10^3/uL Lymph # (Auto) 1.67 (1.00-4.00) 10^3/uL [place] # (Auto) 0.83 H (0.10-0.80) 10^3/uL Eos # (Auto) 0.21 (0.10-0.30) 10^3/uL Baso # (Auto) 0.04 (0.00-0.10) 10^3/uL ESR 114 Sodium 146 H (136-145) mmol/L Potassium 4.2 (3.3-5.3) mmol/L Chloride 106 (98-115) mmol/L Carbon Dioxide 31.2 (21.0-32.0) mmol/L Anion Gap 13.0 (5-15) mmol/L BUN 18 (6-25) mg/dL Creatinine 0.71 (0.51-1.17) mg/dL Est Cr Clr Drug Dosing 52.26 mL/min Estimated GFR (MDRD) > 60 mL/min Glucose 92 (75 - 99) mg/dL Calcium 8.9 (8.7-10.3) mg/dL SUMIT Results - Last 24 hrs: Microbiology 06/12/19 14:08 Aerobic Blood Culture - Preliminary Blood - Arm, Left NO GROWTH AFTER 3 DAYS Anaerobic Blood Culture - Preliminary NO GROWTH AFTER 3 DAYS 06/12/19 12:50 Aerobic Blood Culture - Preliminary Blood - Arm, Left Anaerobic Blood Culture - Preliminary NO GROWTH AFTER 3 DAYS Med Orders - Current: Current Medications Acetaminophen (Tylenol Extra Strength) 1,000 mg PO BID@0900,1400 PRN PRN Reason: Pain Last Admin: 06/15/19 14:48 Dose: 1,000 mg Acetaminophen (Tylenol Extra Strength) 1,000 mg PO BEDTIME [facility] Last Admin: 06/15/19 20:29 Dose: 1,000 mg Apixaban (Eliquis) 10 mg PO BID@0800,2000 [facility] Last Admin: 06/16/19 07:59 Dose: 10 mg Escitalopram Oxalate (Lexapro) 10 mg PO BEDTIME [facility] Last Admin: 06/15/19 20:29 Dose: 10 mg Levofloxacin/Dextrose 500 mg/ (Premix) 100 mls @ 100 mls/hr IV Q48H [facility] Last Admin: 06/14/19 13:32 Dose: 100 mls/hr Levofloxacin/Dextrose 250 mg/ (Premix) 50 mls @ 100 mls/hr IV Q48H [facility] Last Admin: 06/14/19 14:35 Dose: 100 mls/hr Lactobacillus Acidophilus/Rhamnosus (Multi-Katy Plus) 1 cap PO BID [facility] Last Admin: 06/16/19 08:01 Dose: 1 cap Lisinopril (Prinivil) 5 mg PO DAILY [facility] Last Admin: 06/16/19 08:01 Dose: 5 mg Melatonin (Melatonin) 6 mg PO BEDTIME [facility] Last Admin: 06/15/19 20:28 Dose: 6 mg Nitrofurantoin Macrocrystals (Macrodantin) 50 mg PO BEDTIME [facility] Last Admin: 06/15/19 20:28 Dose: 50 mg Omeprazole (Omeprazole) 20 mg PO ACBREAKFAST [facility] Last Admin: 06/16/19 06:31 Dose: Not Given Polyethylene Glycol (Miralax) 17 gm PO 0800 [facility] Last Admin: 06/16/19 07:57 Dose: 17 gm Prednisone (Prednisone) 7.5 mg PO DAILY [facility] Last Admin: 06/16/19 08:01 Dose: 7.5 mg Trolamine Salicylate (Aspercreme 10%) 0 gm TOP TID PRN PRN Reason: Pain Discontinued Medications Acetaminophen (Tylenol Extra Strength) 1,000 mg PO Q6H PRN PRN Reason: Pain Last Admin: 06/13/19 03:39 Dose: 1,000 mg Apixaban (Eliquis) 5 mg PO BID ONE Stop: 06/13/19 20:01 Diphenhydramine HCl (Benadryl) 50 mg PO BEDTIME [facility] Last Admin: 06/14/19 20:30 Dose: 50 mg Enoxaparin Sodium (Lovenox) 0 mg SUBCUT BID [facility] Enoxaparin Sodium (Lovenox) 80 mg SUBCUT Q12H [facility] Last Admin: 06/12/19 20:27 Dose: Not Given Enoxaparin Sodium (Lovenox) 80 mg SUBCUT Q12H [facility] Last Admin: 06/13/19 07:50 Dose: 80 mg Levofloxacin/Dextrose (Levaquin In D5w 500 Mg/100 Ml) Confirm Administered Dose 100 mls @ as directed IV .STK-MED ONE Stop: 06/12/19 13:21 Last Admin: 06/12/19 14:13 Dose: Not Given Sodium Chloride (Normal Saline) Confirm Administered Dose 1,000 mls @ as directed .ROUTE .STK-MED ONE Stop: 06/12/19 13:22 Last Admin: 06/12/19 14:13 Dose: Not Given Sodium Chloride (Normal Saline) 50 mls @ 200 mls/min IV ONETIME ONE Stop: 06/12/19 13:32 Last Admin: 06/12/19 13:34 Dose: 200 mls/min Sodium Chloride (Normal Saline) 50 mls @ 200 mls/min IV ONETIME ONE Stop: 06/12/19 13:33 Last Admin: 06/12/19 13:34 Dose: 200 mls/min Levofloxacin/Dextrose 500 mg/ (Premix) 100 mls @ 200 mls/hr IV ONETIME ONE Stop: 06/12/19 13:59 Last Admin: 06/12/19 13:30 Dose: 200 mls/hr Sodium Chloride (Normal Saline) 1,000 mls @ 75 mls/hr IV ASDIRECTED [facility] Last Admin: 06/12/19 13:30 Dose: 75 mls/hr Vancomycin HCl 1.25 gm/ Sodium (Chloride) 250 mls @ 166.667 mls/hr IV Q24H [facility] Last Admin: 06/13/19 20:44 Dose: 166.667 mls/hr Levofloxacin/Dextrose 750 mg/ (Premix) 150 mls @ 100 mls/hr IV Q48H [facility] Iopamidol (Isovue-370 (76%)) 100 ml IV ONETIME ONE Stop: 06/12/19 13:32 Last Admin: 06/12/19 13:33 Dose: 75 ml Non-Formulary Medication (Misoprostol) 200 mcg PO DAILY LIN - Exam Quality Assessment: Reports: Supplemental Oxygen, DVT Prophylaxis General: Reports: Alert, Oriented, Cooperative Lungs: Reports: Clear to Auscultation, Normal Respiratory Effort Cardiovascular: Reports: Regular Rate, Regular Rhythm GI/Abdominal Exam: Soft (Female) Exam: Deferred Psy/Mental Status: Reports: Alert, Normal Affect
--- NOTE | 2019-06-16 10:28 | US ---
[id number] US/US Venous Doppler LE Bilateral EXAM: BILATERAL LOWER EXTREMITY DUPLEX ULTRASOUND INDICATION: Pulmonary embolism. COMPARISON: None. DISCUSSION: There is partially occlusive deep venous thrombosis within the popliteal vein on the right. The remaining deep venous structures of both lower extremity veins are compressible with antegrade flow and no other evidence of thrombus identified. IMPRESSION: 1. Partially occlusive deep venous thrombosis within the right popliteal vein. No thrombosis is seen above the knee in the right. 2. No evidence of left lower extremity DVT. Dong Lei MD 06/16/19 1026 Thank you for allowing us to participate in the care of your patient.
[2019-06-16] MEDS: Levofloxacin/Dextrose 5%-Water 250 MG in Premix Bag 1 BAG IV SCH (11:40)
== END 2019-06-16 13:10 | disposition home or self-care (01) | DRG 175 ==
LOC: KA.ED 11:26 → KA.MS 14:59 → UNDOADMIN 14:59
PROVIDERS: ADMIT Family Medicine; ATTEND Family Medicine
DX: I26.93 Single subsegmental thrombotic pulmonary embolism without acute cor pulmonale (principal); I26.99 Other pulmonary embolism without acute cor pulmonale; J18.9 Pneumonia, unspecified organism; I82.431 Acute embolism and thrombosis of right popliteal vein; J98.11 Atelectasis; Z96.0 Presence of urogenital implants; M35.3 Polymyalgia rheumatica; I10 Essential (primary) hypertension; E78.5 Hyperlipidemia, unspecified; M50.30 Other cervical disc degeneration, unspecified cervical region; E66.9 Obesity, unspecified; G47.00 Insomnia, unspecified; F32.9 Major depressive disorder, single episode, unspecified; Z20.828 Contact with and (suspected) exposure to other viral communicable diseases; H54.7 Unspecified visual loss; E78.00 Pure hypercholesterolemia, unspecified; R32 Unspecified urinary incontinence; G89.29 Other chronic pain; M54.2 Cervicalgia; Z96.659 Presence of unspecified artificial knee joint; Z87.440 Personal history of urinary (tract) infections; Z79.52 Long term (current) use of systemic steroids; Z79.899 Other long term (current) drug therapy; Z88.1 Allergy status to other antibiotic agents; Z88.8 Allergy status to other drugs, medicaments and biological substances; Z87.442 Personal history of urinary calculi; Z90.49 Acquired absence of other specified parts of digestive tract; Z90.710 Acquired absence of both cervix and uterus
CPT/HCPCS: 36415; 71046; 71260; 80048; 80053; 81241; 83605; 83880; 84145; 84484; 85025; 85379; 85384; 85610; 85651; 85652; 85730; 86140; 86146; 86147; 87040; 87077; 93005; 93970; 96361; 96365; 99284; 99285-25; A9270-GY; J1650; J1956; J3370; J7030; J7050; J7512; Q9967

== ENCOUNTER 2019-11-17 04:05 | Inpatient (IN) | payer MEDICARE, BC, OTHER ==
[2019-11-17] MEDS ORDERED: Sodium Chloride 0.9% 10 ML Syringe FLUSH PRN (04:47)
[2019-11-17] MEDS ORDERED: Sodium Chloride 0.9% 1,000 ML IV ONE (04:47)
--- NOTE | 2019-11-17 05:19 | EDM.PDOC ---
ED HPI GENERAL MEDICAL PROBLEM - General Chief Complaint: General Stated Complaint: back pain Time Seen by Provider: 11/17/19 04:55 Source of Information: Reports: Patient History Limitations: Reports: No Limitations - History of Present Illness INITIAL COMMENTS - FREE TEXT/NARRATIVE: Patient presents from assisted living via ambulance with "back pain". She says it has been for two days with no change but then says it is worse tonight. She has a UTI and is on Bactrim DS bid since 11/12. Normally she takes a daily nitrofurantoin 50 mg but that was held for the Bactrim course. She thinks she may have had a kidney stone in the remote past but doesn't remember for sure. Bilateral Flank Pain Score (Numeric/FACES): 6 - Related Data Allergies Allergy/AdvReac Type Severity Reaction Status Date / Time cephalexin Allergy Intermediate Itching Verified 11/17/19 04:44 piperacillin Allergy Intermediate Itching Verified 11/17/19 04:44 tazobactam Allergy Intermediate Itching Verified 11/17/19 04:44 ceftriaxone Allergy Rash Verified 11/17/19 04:44 Home Meds: Home Meds Calcium Carbonate/Vitamin D3 [Calcium 600 + Vit D Tablet] 1 each PO BIDMEALS 04/19/18 [History] Escitalopram [Lexapro] 10 mg PO DAILY 06/12/19 [History] L.acidophil/L.plantar/Bifido 7 [Up4 Probiotics Adlt 50 Pls 25B] 1 tab PO BID 06/12/19 [History] Trolamine Salicylate/Aloe Vera [Aspercreme 10%] 1 applic TOP TID PRN 06/12/19 [History] nitrofurantoin macrocrystaL [Nitrofurantoin] 50 mg PO BEDTIME 06/12/19 [History] polyethylene glycoL 3350 [MiraLAX] 17 gm PO 0800 06/12/19 [History] predniSONE [Prednisone] 7.5 mg PO DAILY 06/12/19 [History] Apixaban [Eliquis] 5 mg PO BID 11/17/19 [History] Past Medical History HEENT History: Reports: Cataract, Impaired Vision Cardiovascular History: Reports: High Cholesterol, Hypertension Respiratory History: Reports: None Genitourinary History: Reports: Renal Calculus, Urinary Incontinence [employer] History: Reports: Musculoskeletal History: Reports: Neck Pain, Chronic, Other (See Below) Other Musculoskeletal History: 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 Neurological History: Reports: None Psychiatric History: Reports: None Endocrine/Metabolic History: Reports: None Hematologic History: Reports: Blood Transfusion(s) 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 Dermatologic History: Reports: None - Infectious Disease History Infectious Disease History: Reports: Chicken Pox Other Infectious Disease History: unknown - Past Surgical History Head Surgeries/Procedures: Reports: None HEENT Surgical History: Reports: Cataract Surgery Cardiovascular Surgical History: Reports: None Respiratory Surgical History: Reports: None GI Surgical History: Reports: Appendectomy, Cholecystectomy Female Surgical History: Reports: Hysterectomy, Kidney stone extraction Endocrine Surgical History: Reports: None Musculoskeletal Surgical History: Reports: Knee Replacement Oncologic Surgical History: Reports: None Dermatological Surgical History: Reports: None Social & Family History - Family History Family Medical History: Noncontributory Cardiac: Reports: CAD Oncologic: Reports: Lung - Caffeine Use Caffeine Use: Reports: Tea - Living Situation & Occupation Living situation: Reports: ED ROS GENERAL - Review of Systems Review Of Systems: See Below Constitutional: Denies: Fever, Malaise, Weakness HEENT: Reports: No Symptoms Respiratory: Denies: Shortness of Breath, Cough Cardiovascular: Denies: Chest Pain, Lightheadedness, Syncope Endocrine: Denies: Fatigue GI/Abdominal: Denies: Abdominal Pain, Constipation, Diarrhea, Nausea, Vomiting : Reports: Other (she doesn't remember what her symptoms were when the UTI was diagnosed 4 days ago but just says she always gets UTIs.) Musculoskeletal: Reports: Back Pain (lower midline). Denies: Neck Pain, Shoulder Pain, Arm Pain Skin: Denies: Cyanosis, Jaundice, Mottled, Pallor, Diaphoresis Neurological: Reports: Difficulty Walking (her back hurts to move much but not at rest.). 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) General Appearance: Alert, WD/WN, No Apparent Distress Eye Exam: Bilateral Eye: EOMI, Normal Inspection, PERRL Ears: Normal External Exam, Hearing Grossly Normal Nose: Normal Inspection, No Blood Throat/Mouth: Normal Inspection, Normal Lips, Normal Voice, No Airway Compromise Head: Atraumatic, Normocephalic Neck: Normal Inspection, Full Range of Motion Respiratory/Chest: No Respiratory Distress, Lungs Clear, Normal Breath Sounds, No Accessory Muscle Use Cardiovascular: Regular Rate, Rhythm, No Murmur GI/Abdominal: Normal Bowel Sounds, No Organomegaly, Distended (moderate), Tender (over bladder only). No: Guarding, Rigid Back Exam: Paraspinal Tenderness (lumbar, nonspecific, mild to palpation). No: CVA Tenderness (L), CVA Tenderness (R) Extremities: Normal Inspection, Normal Range of Motion Neurological: Alert, Oriented, No Motor/Sensory Deficits, Other (Patient is oriented and quite good cognitively but isn't clear on recent symptoms or med changes. She does have someone help her take her medications bid.) Psychiatric: Normal Affect, Normal Mood Skin Exam: Warm, Dry, Intact, Normal Color, No Rash Course - Vital Signs Last Recorded V/S: Last Vital Signs Temp 98.7 F 11/17/19 05:01 Pulse 93 11/17/19 05:01 Resp 19 11/17/19 05:01 BP 145/79 H 11/17/19 05:01 Pulse Ox 88 L 11/17/19 05:01 - Orders/Labs/Meds Orders: Active Orders 24 hr Category Date Time Status Peripheral IV Care [RC] . DIRECTED Care 11/17/19 04:47 Active Abdomen Pelvis w wo Cont [CT] Stat Exams 11/17/19 05:41 Ordered CULTURE BLOOD [BC] Stat Lab 11/17/19 05:25 Ordered CULTURE BLOOD [BC] Stat Lab 11/17/19 05:25 Ordered CULTURE URINE [RM] Stat Lab 11/17/19 05:58 Received Sodium Chloride 0.9% [Normal Saline] 50 ml Med 11/17/19 06:00 Active IV ASDIRECTED Sodium Chloride 0.9% [Saline Flush] Med 11/17/19 04:47 Active 10 ml FLUSH Q8HR PRN Blood Culture x2 Reflex Set [OM.PC] Stat Oth 11/17/19 05:25 Ordered Peripheral IV Insertion Adult [OM.PC] Routine Oth 11/17/19 04:47 Ordered Medication Orders Sodium Chloride (Normal Saline) 50 mls @ 200 mls/hr IV ASDIRECTED LIN Last Admin: 11/17/19 06:36 Dose: 200 mls/hr Documented by: [id number] Sodium Chloride (Saline Flush) 10 ml FLUSH Q8HR PRN PRN Reason: keep vein open Labs: Laboratory Tests 11/17/19 11/17/19 11/17/19 Range/Units 04:50 04:50 05:40 WBC 19.07 H (5.00-10.00) 10^3/uL RBC 4.14 (3.80-5.50) 10^6/uL Hgb 12.3 (12.0-16.0) g/dL Hct 38.1 (37.0-47.0) % MCV 92.0 D (82.0-92.0) fL MCH 29.7 (27.0-31.0) pg MCHC 32.3 (32.0-36.0) g/dL RDW 14.1 (11.5-14.5) % Plt Count 209 (150-400) 10^3/uL MPV 10.5 H (7.4-10.4) fL Immature Gran % (Auto) 0.9 (0.0-5.0) % Neut % (Auto) 81.8 H (50.0-70.0) % Lymph % (Auto) 7.7 L (20.0-40.0) % [place] % (Auto) 9.5 H (2.0-8.0) % Eos % (Auto) 0.0 L (1.0-3.0) % Baso % (Auto) 0.1 (0.0-1.0) % Neut # (Auto) 15.60 H (2.50-7.00) 10^3/uL Lymph # (Auto) 1.46 (1.00-4.00) 10^3/uL Sumner # (Auto) 1.81 H (0.10-0.80) 10^3/uL Eos # (Auto) 0.00 L (0.10-0.30) 10^3/uL Baso # (Auto) 0.02 (0.00-0.10) 10^3/uL Immature Gran # (Auto) 0.18 (0.00-0.50) 10^3/uL Sodium 135 L D (136-145) mmol/L Potassium 4.0 (3.3-5.3) mmol/L Chloride 99 (98-115) mmol/L Carbon Dioxide 24.5 (21.0-32.0) mmol/L Anion Gap 15.5 H (5-15) mmol/L BUN 13 (6-25) mg/dL Creatinine 0.79 (0.51-1.17) mg/dL Est Cr Clr Drug Dosing 46.08 mL/min Estimated GFR (MDRD) > 60 mL/min Glucose 158 H (75 - 99) mg/dL Lactic Acid 1.3 (0.4-2.0) mmol/L Calcium 8.7 (8.7-10.3) mg/dL Specimen Type Urine Color (YELLOW) Urine Appearance (CLEAR) Urine pH (5.0-9.0) Ur Specific [place] (1.005-1.030) Urine Protein (NEGATIVE) mg/dL Urine Glucose (UA) (NEGATIVE) mg/dL Urine Ketones (NEGATIVE) mg/dL Urine Occult Blood (NEGATIVE) Urine Nitrite (NEGATIVE) Urine Bilirubin (NEGATIVE) Urine Urobilinogen (0.2-1.0) E.U./dL Ur Leukocyte Esterase (NEGATIVE) Urine RBC (0-5) /HPF Urine WBC (0-5) /HPF Ur Epithelial Cells /LPF Urine Bacteria (NONE TO FEW) /HPF 11/17/19 Range/Units 05:58 WBC (5.00-10.00) 10^3/uL RBC (3.80-5.50) 10^6/uL Hgb (12.0-16.0) g/dL Hct (37.0-47.0) % MCV (82.0-92.0) fL MCH (27.0-31.0) pg MCHC (32.0-36.0) g/dL RDW (11.5-14.5) % Plt Count (150-400) 10^3/uL MPV (7.4-10.4) fL Immature Gran % (Auto) (0.0-5.0) % Neut % (Auto) (50.0-70.0) % Lymph % (Auto) (20.0-40.0) % [place] % (Auto) (2.0-8.0) % Eos % (Auto) (1.0-3.0) % Baso % (Auto) (0.0-1.0) % Neut # (Auto) (2.50-7.00) 10^3/uL Lymph # (Auto) (1.00-4.00) 10^3/uL Sumner # (Auto) (0.10-0.80) 10^3/uL Eos # (Auto) (0.10-0.30) 10^3/uL Baso # (Auto) (0.00-0.10) 10^3/uL Immature Gran # (Auto) (0.00-0.50) 10^3/uL Sodium (136-145) mmol/L Potassium (3.3-5.3) mmol/L Chloride (98-115) mmol/L Carbon Dioxide (21.0-32.0) mmol/L Anion Gap (5-15) mmol/L BUN (6-25) mg/dL Creatinine (0.51-1.17) mg/dL Est Cr Clr Drug Dosing mL/min Estimated GFR (MDRD) mL/min Glucose (75 - 99) mg/dL Lactic Acid (0.4-2.0) mmol/L Calcium (8.7-10.3) mg/dL Specimen Type Urinqcath Urine Color Brown H (YELLOW) Urine Appearance Turbid H (CLEAR) Urine pH 7.0 (5.0-9.0) Ur Specific [place] 1.025 (1.005-1.030) Urine Protein >=300 H (NEGATIVE) mg/dL Urine Glucose (UA) Negative (NEGATIVE) mg/dL Urine Ketones Trace H (NEGATIVE) mg/dL Urine Occult Blood Large H (NEGATIVE) Urine Nitrite Negative (NEGATIVE) Urine Bilirubin Small H (NEGATIVE) Urine Urobilinogen 1.0 (0.2-1.0) E.U./dL Ur Leukocyte Esterase Small H (NEGATIVE) Urine RBC Packed (0-5) /HPF Urine WBC Semi-packed (0-5) /HPF Ur Epithelial Cells Few /LPF Urine Bacteria Many H (NONE TO FEW) /HPF Meds: Medications Generic Name Dose Route Start Last Admin Trade Name Freq PRN Reason Stop Dose Admin Sodium Chloride 50 mls @ 200 mls/hr 11/17/19 06:00 11/17/19 06:36 Normal Saline IV 200 mls/hr ASDIRECTED LIN Administration Sodium Chloride 10 ml 11/17/19 04:47 Saline Flush FLUSH Q8HR PRN keep vein open Discontinued Medications Generic Name Dose Route Start Last Admin Trade Name Michael PRN Reason Stop Dose Admin Sodium Chloride 1,000 mls @ 999 mls/hr 11/17/19 04:47 11/17/19 04:52 Normal Saline IV 11/17/19 05:47 999 mls/hr .BOLUS ONE Administration Iopamidol 100 ml 11/17/19 05:59 11/17/19 06:35 [id number] (76%) IV 11/17/19 06:00 75 ml ONETIME ONE Administration - Re-Assessments/Exams Free Text/Narrative Re-Assessment/Exam: 11/17/19 05:42 I reviewed her UA from 11/09 showing 3+ hematuria, small leukocyte esterase and many bacteria. UC showed two strains of E coli susceptible to Bactrim, tobramycin, gentamicin and Cephalosporins but resistant to Levaquin, Cipro, Ampicillin, Nitrofurantoin. She is listed as allergic to the beta lactams. CBC on 10/04/19 showed WBC 11.4 with ANC 7.0. 11/17/19 05:48 WBC is now 19 and ANC 15.6; UA, lactate, blood cultures are pending. Getting CT now. 11/17/19 07:14 CT shows no evidence of kidney stones or infection. UA consistent with untreated/inadequately treated UTI. Will admit for IP due to worsening WBC and apparent failure of antibiotic therapy. Dr. Guillaume is refrigeration mechanic helper and I called his phone but spoke with Dr. Joyner who accepted for him after discussion of case. She advised waiting on initiating IV antibiotic therapy until Dr. Guillaume or Silverio sees patient. Discussed findings and treatment plan with patient who agrees. Pt stable. Departure - Departure Time of Disposition: 07:13 Disposition: Admitted As Inpatient 67 Condition: Good Clinical Impression: UTI (urinary tract infection), bacterial, Neutrophilic leukocytosis, Therapy failure due to antibiotic resistance - Discharge Information Referrals: Valery Shaffer MD [Primary Care Provider] - Forms: ED Department Discharge Sepsis Event Note (ED) - Focused Exam Vital Signs: Vital Signs Temp Pulse Resp BP Pulse Ox 11/17/19 05:01 98.7 F 93 19 145/79 H 88 L - My Orders Last 24 Hours: My Active Orders 11/17/19 04:47 Peripheral IV Care [RC] . DIRECTED Sodium Chloride 0.9% [Saline Flush] 10 ml FLUSH Q8HR PRN Peripheral IV Insertion Adult [OM.PC] Routine 11/17/19 05:25 CULTURE BLOOD [BC] Stat CULTURE BLOOD [BC] Stat Blood Culture x2 Reflex Set [OM.PC] Stat 11/17/19 05:41 Abdomen Pelvis w wo Cont [CT] Stat 11/17/19 05:58 CULTURE URINE [RM] Stat 11/17/19 06:00 Sodium Chloride 0.9% [Normal Saline] 50 ml IV ASDIRECTED - Assessment/Plan Last 24 Hours: My Active Orders 11/17/19 04:47 Peripheral IV Care [RC] . DIRECTED Sodium Chloride 0.9% [Saline Flush] 10 ml FLUSH Q8HR PRN Peripheral IV Insertion Adult [OM.PC] Routine 11/17/19 05:25 CULTURE BLOOD [BC] Stat CULTURE BLOOD [BC] Stat Blood Culture x2 Reflex Set [OM.PC] Stat 11/17/19 05:41 Abdomen Pelvis w wo Cont [CT] Stat 11/17/19 05:58 CULTURE URINE [RM] Stat 11/17/19 06:00 Sodium Chloride 0.9% [Normal Saline] 50 ml IV ASDIRECTED
[2019-11-17 05:30] LABS: ANION GAP 15.5 mmol/L (5-15); CHLORIDE,CL 99 mmol/L (98-115); SODIUM,NA 135 mmol/L (136-145)
[2019-11-17] MEDS ORDERED: Iopamidol 755 Mg/ML 100 ML Bottle IV ONE (05:59)
[2019-11-17] MEDS ORDERED: Sodium Chloride 0.9% 50 ML IV SCH (06:00)
--- NOTE | 2019-11-17 08:03 | CT ---
[id number] CT/CT Abdomen Pelvis WWO IV Exam: CT Abdomen Pelvis WWO IV Clinical Data: ABDOMINAL PAIN BACK PAIN COMPARISON: CORRELATION IS MADE WITH OCTOBER 05, 2007 FINDINGS: There is significant right-sided hydronephrosis. Air is seen within the right renal collecting system A right ureteral stent appears to be in good position. The appendix is not seen There is no evidence of appendicitis The pelvis shows no mass or adenopathy There is no evidence of diverticulitis There is diverticulosis IV contrast was not used. The gallbladder has been removed The liver and spleen, adrenals, aorta, left kidney, and pancreas are otherwise unremarkable There is an extrarenal pelvis on the left There are degenerative changes of the spine IMPRESSION: SIGNIFICANT RIGHT-SIDED HYDRONEPHROSIS POSSIBILITY OF PYONEPHROSIS AND AN OBSTRUCTED RIGHT URETERAL STENT ARE CONSIDERED RIGHT URETERAL STENT IN POSITION Jameson Dorsey MD 11/17/19 0802 Thank you for allowing us to participate in the care of your patient.
--- NOTE | 2019-11-17 09:48 | PCM.HP.2 ---
H&P History of Present Illness - General Date of Service: 11/17/19 Admit Problem/Dx: Admission Diagnosis/Problem Admission Diagnosis/Problem Urinary tract infection Source of Information: Patient, Family, Old Records, RN History Limitations: Reports: No Limitations. Denies: Altered Mental Status Bilateral Flank Pain Score (Numeric/FACES): 6 - Related Data Allergies/Adverse Reactions: Allergies Allergy/AdvReac Type Severity Reaction Status Date / Time piperacillin Allergy Intermediate Itching Verified 11/17/19 04:44 tazobactam Allergy Intermediate Itching Verified 11/17/19 04:44 Home Medications: Home Meds Calcium Carbonate/Vitamin D3 [Calcium 600 + Vit D Tablet] 1 each PO BIDMEALS 04/19/18 [History] Escitalopram [Lexapro] 10 mg PO DAILY 06/12/19 [History] L.acidophil/L.plantar/Bifido 7 [Up4 Probiotics Adlt 50 Pls 25B] 1 tab PO BID 06/12/19 [History] Trolamine Salicylate/Aloe Vera [Aspercreme 10%] 1 applic TOP TID PRN 06/12/19 [History] nitrofurantoin macrocrystaL [Nitrofurantoin] 50 mg PO BEDTIME 06/12/19 [History] polyethylene glycoL 3350 [MiraLAX] 17 gm PO 0800 06/12/19 [History] predniSONE [Prednisone] 7.5 mg PO DAILY 06/12/19 [History] Apixaban [Eliquis] 5 mg PO BID 11/17/19 [History] Sulfamethoxazole/Trimethoprim [Bactrim Ds Tablet] 1 tab PO BID 11/17/19 [History] Past Medical History HEENT History: Reports: Cataract, Impaired Vision Other HEENT History: wears glasses Cardiovascular History: Reports: High Cholesterol, Hypertension Respiratory History: Reports: None Other Respiratory History: multiple subsegmental pulmonary emboli without acute cor pulmonale Genitourinary History: Reports: Renal Calculus, Urinary Incontinence 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: Musculoskeletal History: Reports: Neck Pain, Chronic, Other (See Below) Other Musculoskeletal History: 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 Neurological History: Reports: None Psychiatric History: Reports: None Endocrine/Metabolic History: Reports: None Hematologic History: Reports: Blood Transfusion(s) 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 Dermatologic History: Reports: None - Infectious Disease History Infectious Disease History: Reports: Chicken Pox Other Infectious Disease History: unknown - Past Surgical History Head Surgeries/Procedures: Reports: None HEENT Surgical History: Reports: Cataract Surgery Cardiovascular Surgical History: Reports: None Respiratory Surgical History: Reports: None GI Surgical History: Reports: Appendectomy, Cholecystectomy Female Surgical History: Reports: Hysterectomy, Kidney stone extraction Endocrine Surgical History: Reports: None Musculoskeletal Surgical History: Reports: Knee Replacement Oncologic Surgical History: Reports: None Dermatological Surgical History: Reports: None Social & Family History - Family History Family Medical History: Noncontributory Cardiac: Reports: CAD Oncologic: Reports: Lung - Tobacco Use Smoking Status *Q: Never Smoker - Caffeine Use Caffeine Use: Reports: Tea - Recreational Drug Use Recreational Drug Use: No - Living Situation & Occupation Living situation: Reports: H&P Review of Systems - Review of Systems: Review Of Systems: See Below General: Reports: Weakness. Denies: Fever, Chills, Night Sweats, Diaphoresis, Decreased Appetite, Weight Loss HEENT: Reports: No Symptoms Pulmonary: Reports: Shortness of Breath Cardiovascular: Reports: No Symptoms Gastrointestinal: Reports: No Symptoms Genitourinary: Reports: Dysuria, Hematuria. Denies: Burning, Pain, Retention, Flank Pain Skin: Reports: Dryness Psychiatric: Reports: No Symptoms Neurological: Reports: No Symptoms Hematologic/Lymphatic: Reports: No Symptoms Exam - Exam Exam: See Below - Vital Signs Vital Signs: Last Vital Signs Temp 98.5 F 11/17/19 08:37 Pulse 93 11/17/19 08:37 Resp 18 11/17/19 08:37 BP 144/60 H 11/17/19 08:37 Pulse Ox 93 L 11/17/19 08:37 Weight: 214 lb 3.2 oz - Patient Data Lab Results Last 24 hrs: Laboratory Results - last 24 hr 11/17/19 11/17/19 11/17/19 Range/Units 04:50 04:50 05:40 WBC 19.07 H (5.00-10.00) 10^3/uL RBC 4.14 (3.80-5.50) 10^6/uL Hgb 12.3 (12.0-16.0) g/dL Hct 38.1 (37.0-47.0) % MCV 92.0 D (82.0-92.0) fL MCH 29.7 (27.0-31.0) pg MCHC 32.3 (32.0-36.0) g/dL RDW 14.1 (11.5-14.5) % Plt Count 209 (150-400) 10^3/uL MPV 10.5 H (7.4-10.4) fL Immature Gran % (Auto) 0.9 (0.0-5.0) % Neut % (Auto) 81.8 H (50.0-70.0) % Lymph % (Auto) 7.7 L (20.0-40.0) % [place] % (Auto) 9.5 H (2.0-8.0) % Eos % (Auto) 0.0 L (1.0-3.0) % Baso % (Auto) 0.1 (0.0-1.0) % Neut # (Auto) 15.60 H (2.50-7.00) 10^3/uL Lymph # (Auto) 1.46 (1.00-4.00) 10^3/uL [place] # (Auto) 1.81 H (0.10-0.80) 10^3/uL Eos # (Auto) 0.00 L (0.10-0.30) 10^3/uL Baso # (Auto) 0.02 (0.00-0.10) 10^3/uL Immature Gran # (Auto) 0.18 (0.00-0.50) 10^3/uL Sodium 135 L D (136-145) mmol/L Potassium 4.0 (3.3-5.3) mmol/L Chloride 99 (98-115) mmol/L Carbon Dioxide 24.5 (21.0-32.0) mmol/L Anion Gap 15.5 H (5-15) mmol/L BUN 13 (6-25) mg/dL Creatinine 0.79 (0.51-1.17) mg/dL Est Cr Clr Drug Dosing 46.08 mL/min Estimated GFR (MDRD) > 60 mL/min Glucose 158 H (75 - 99) mg/dL Lactic Acid 1.3 (0.4-2.0) mmol/L Calcium 8.7 (8.7-10.3) mg/dL Specimen Type Urine Color (YELLOW) Urine Appearance (CLEAR) Urine pH (5.0-9.0) Ur Specific [place] (1.005-1.030) Urine Protein (NEGATIVE) mg/dL Urine Glucose (UA) (NEGATIVE) mg/dL Urine Ketones (NEGATIVE) mg/dL Urine Occult Blood (NEGATIVE) Urine Nitrite (NEGATIVE) Urine Bilirubin (NEGATIVE) Urine Urobilinogen (0.2-1.0) E.U./dL Ur Leukocyte Esterase (NEGATIVE) Urine RBC (0-5) /HPF Urine WBC (0-5) /HPF Ur Epithelial Cells /LPF Urine Bacteria (NONE TO FEW) /HPF SARS CoV-2 RNA Rapid ARMANDO (NEGATIVE) 11/17/19 11/17/19 Range/Units 05:58 07:15 WBC (5.00-10.00) 10^3/uL RBC (3.80-5.50) 10^6/uL Hgb (12.0-16.0) g/dL Hct (37.0-47.0) % MCV (82.0-92.0) fL MCH (27.0-31.0) pg MCHC (32.0-36.0) g/dL RDW (11.5-14.5) % Plt Count (150-400) 10^3/uL MPV (7.4-10.4) fL Immature Gran % (Auto) (0.0-5.0) % Neut % (Auto) (50.0-70.0) % Lymph % (Auto) (20.0-40.0) % [place] % (Auto) (2.0-8.0) % Eos % (Auto) (1.0-3.0) % Baso % (Auto) (0.0-1.0) % Neut # (Auto) (2.50-7.00) 10^3/uL Lymph # (Auto) (1.00-4.00) 10^3/uL [place] # (Auto) (0.10-0.80) 10^3/uL Eos # (Auto) (0.10-0.30) 10^3/uL Baso # (Auto) (0.00-0.10) 10^3/uL Immature Gran # (Auto) (0.00-0.50) 10^3/uL Sodium (136-145) mmol/L Potassium (3.3-5.3) mmol/L Chloride (98-115) mmol/L Carbon Dioxide (21.0-32.0) mmol/L Anion Gap (5-15) mmol/L BUN (6-25) mg/dL Creatinine (0.51-1.17) mg/dL Est Cr Clr Drug Dosing mL/min Estimated GFR (MDRD) mL/min Glucose (75 - 99) mg/dL Lactic Acid (0.4-2.0) mmol/L Calcium (8.7-10.3) mg/dL Specimen Type Urinqcath Urine Color Brown H (YELLOW) Urine Appearance Turbid H (CLEAR) Urine pH 7.0 (5.0-9.0) Ur Specific [place] 1.025 (1.005-1.030) Urine Protein >=300 H (NEGATIVE) mg/dL Urine Glucose (UA) Negative (NEGATIVE) mg/dL Urine Ketones Trace H (NEGATIVE) mg/dL Urine Occult Blood Large H (NEGATIVE) Urine Nitrite Negative (NEGATIVE) Urine Bilirubin Small H (NEGATIVE) Urine Urobilinogen 1.0 (0.2-1.0) E.U./dL Ur Leukocyte Esterase Small H (NEGATIVE) Urine RBC Packed (0-5) /HPF Urine WBC Semi-packed (0-5) /HPF Ur Epithelial Cells Few /LPF Urine Bacteria Many H (NONE TO FEW) /HPF SARS CoV-2 RNA Rapid ARMANDO Negative (NEGATIVE) Result Diagrams: 11/19/19 07:30 11/19/19 07:30 Sepsis Event Note - Evaluation Sepsis Screening Result: No Definite Risk - Focused Exam Vital Signs: Vital Signs Temp Pulse Pulse Resp BP BP Pulse Ox 11/17/19 08:37 98.5 F 93 18 144/60 H 93 L 11/17/19 07:47 87 24 H 96 11/17/19 05:45 85 27 H 11/17/19 05:31 89 24 H 142/76 H 11/17/19 05:15 87 15 121/74 92 L 11/17/19 05:01 98.7 F 93 19 145/79 H 88 L Problem List Initiated/Reviewed/Updated: Yes Orders Last 24hrs: Active Orders 24 hr Category Date Time Status Patient Status [ADT] Routine ADT 11/17/19 07:30 Active CULTURE BLOOD [BC] Stat Lab 11/17/19 05:40 Received CULTURE BLOOD [BC] Stat Lab 11/17/19 06:05 Received CULTURE URINE [RM] Stat Lab 11/17/19 05:58 Received Sodium Chloride 0.9% [Normal Saline] 50 ml Med 11/17/19 06:00 Active IV ASDIRECTED Sodium Chloride 0.9% [Saline Flush] Med 11/17/19 04:47 Active 10 ml FLUSH Q8HR PRN Blood Culture x2 Reflex Set [OM.PC] Stat Oth 11/17/19 05:25 Ordered Peripheral IV Insertion Adult [OM.PC] Routine Oth 11/17/19 04:47 Ordered Medication Orders Sodium Chloride (Normal Saline) 50 mls @ 200 mls/hr IV ASDIRECTED LIN Last Admin: 11/17/19 06:36 Dose: 200 mls/hr Documented by: COLBY Sodium Chloride (Saline Flush) 10 ml FLUSH Q8HR PRN PRN Reason: keep vein open Assessment/Plan Comment:: History of present illness Kate is an 89-year-old female with a history of UTIs that was admitted through the ED with a complicated urinary tract infection. Patient is currently a resident of assisted living [facility] and arrived via ambulance complaining 2-day history of worsening back pain. Placed on Bactrim DS twice daily on November 12. She has a history is of a complicated UTIs with ureteral stents x2. She has multiple antibiotic allergies i.e. rash however doubtful type I hypersensitivity. She has been followed closely by urology and as recently as June she had a right stent exchange due to Right UPJ obstruction---encrusted in place cannot rule out obstruction. Urine culture, E. coli's srain x2 urine dtd 11/10/2019 resistant to fluoroquinolones however sensitive to ceftriaxone, Bactrim--was started on Bactrim at [facility]. Pertinent ED findings/work-up --Abd/pelvis with contrast; significant right-sided hydronephrosis, stent placement visualized however could not rule out stent obstruction, possible pyelonephritis --WBC, 19,000, neutrophilia --VS: Febrile, MAP adequate, RR 24 --Significant UTI on UA --BC drawn--pending Primary Hospital problems Pyelonephritis, Hydronephrosis, right ureter stent Multiple antibiotic allergies Chronic problems Hypertension Polymyalgia rheumatica Chronic constipation Consultations: Consulted with Dr. Santana, urologist, and Dr. Huang, ID, regarding patient case. Either administer Ertapenim or reasonable to abx challenge since patient's multiple antibiotic allergies, recommendations included a trial of a cephalosporin challenge with Rocephin since it was noted to be sensitive on urine culture dated 11/13/19. Urology will plan to see patient for a right ureter stent exchange once the infection is cleared. Disposition/overall plan --Admit to inpatient status for IV antibiotics and close monitoring during antibiotic challenge --Indwelling Yost catheter due to hydronephrosis --Antibiotic challenge; 20 mg IVP Rocephin x1 now followed by 200 mg 30 minutes later followed by 1000 mg 30 minutes later, then 2gm daily. During Challenge Monitor for: Hives/Flushing, Angioedema, throat tightening, excessive saliva, hoarseness or any wheezing or stridor during or rash, change in voice quality, dry cough, shortness of breath, chest tightness, Nausea, vomiting, Hypotension, Respiratory or cardiac arrest. - Mortality Measure Prognosis:: Good
[2019-11-17] MEDS ORDERED: Ondansetron 4 MG Tab.DIS PO PRN (10:28)
[2019-11-17] MEDS ORDERED: cefTRIAXone 1 GM Vial IVPUSH STA (10:43)
[2019-11-17] MEDS ORDERED: diphenhydrAMINE 50 MG/ML SDV IV PRN (11:03)
[2019-11-17] MEDS ORDERED: cefTRIAXone 1 GM Vial IVPUSH ONE ×2 (11:04→11:23)
[2019-11-17] MEDS ORDERED: cefTRIAXone 2 GM Vial IVPUSH SCH (11:15)
[2019-11-17] MEDS: cefTRIAXone 2 GM Vial IVPUSH SCH (16:44)
[2019-11-17] MEDS: Apixaban 5 MG Tab PO SCH (20:43)
[2019-11-17] MEDS: Lactobacillus Rhamnosus GG (Probiotic) Cap PO SCH (20:43)
[2019-11-18] MEDS: Acetaminophen 325 MG Tab PO PRN ×4 (01:05→23:01)
[2019-11-18 08:41] LABS: ANION GAP 15.3 mmol/L (5-15); CHLORIDE,CL 103 mmol/L (98-115); SODIUM,NA 142 mmol/L (136-145)
[2019-11-18] MEDS: Lactobacillus Rhamnosus GG (Probiotic) Cap PO SCH ×3 (08:49→20:01)
[2019-11-18] MEDS: Escitalopram 10 MG Tab PO SCH (08:49)
[2019-11-18] MEDS: Polyethylene Glycol 3350 Powder 17 GM Packet PO SCH (08:49)
[2019-11-18] MEDS: predniSONE 5 MG Tab PO SCH (08:49)
[2019-11-18] MEDS: Apixaban 5 MG Tab PO SCH ×3 (08:49→20:01)
--- NOTE | 2019-11-18 09:42 | PCM.PN ---
- General Info Date of Service: 11/18/19 Functional Status: Reports: Pain Controlled, Tolerating Diet, Urinating. Denies: New Symptoms - Review of Systems General: Reports: Fever, Weakness, Fatigue, Malaise. Denies: Chills HEENT: Reports: Glasses. Denies: Headaches Pulmonary: Denies: Shortness of Breath, Cough Cardiovascular: Denies: Chest Pain, Edema Gastrointestinal: Denies: Abdominal Pain, Constipation, Decreased Appetite, Diarrhea, Nausea, Vomiting Genitourinary: Denies: Dysuria, Frequency, Burning Musculoskeletal: Denies: Back Pain Neurological: Denies: Dizziness, Headache Psychiatric: Denies: Anxiety - Patient Data Vitals - Most Recent: Last Vital Signs Temp 98.4 F 11/18/19 06:35 Pulse 74 11/18/19 06:35 Resp 20 11/18/19 06:35 BP 136/70 11/18/19 06:35 Pulse Ox 96 11/18/19 06:35 Weight - Most Recent: 214 lb 3.2 oz I&O - Last 24 Hours: Intake & Output 11/17/19 11/18/19 11/18/19 22:59 06:59 14:59 Intake Total 300 Output Total 320 300 Balance -320 0 Lab Results Last 24 Hours: Laboratory Results - last 24 hr 11/18/19 11/18/19 Range/Units 07:32 07:32 WBC 14.32 H (5.00-10.00) 10^3/uL RBC 3.97 (3.80-5.50) 10^6/uL Hgb 11.6 L (12.0-16.0) g/dL Hct 36.8 L (37.0-47.0) % MCV 92.7 H (82.0-92.0) fL MCH 29.2 (27.0-31.0) pg MCHC 31.5 L (32.0-36.0) g/dL RDW 14.2 (11.5-14.5) % Plt Count 194 (150-400) 10^3/uL MPV 9.7 (7.4-10.4) fL Immature Gran % (Auto) 0.9 (0.0-5.0) % Neut % (Auto) 77.4 H (50.0-70.0) % Lymph % (Auto) 13.2 L (20.0-40.0) % [place] % (Auto) 7.4 (2.0-8.0) % Eos % (Auto) 1.0 (1.0-3.0) % Baso % (Auto) 0.1 (0.0-1.0) % Neut # (Auto) 11.08 H (2.50-7.00) 10^3/uL Lymph # (Auto) 1.89 (1.00-4.00) 10^3/uL [place] # (Auto) 1.06 H (0.10-0.80) 10^3/uL Eos # (Auto) 0.14 (0.10-0.30) 10^3/uL Baso # (Auto) 0.02 (0.00-0.10) 10^3/uL Immature Gran # (Auto) 0.13 (0.00-0.50) 10^3/uL Sodium 142 (136-145) mmol/L Potassium 4.1 (3.3-5.3) mmol/L Chloride 103 (98-115) mmol/L Carbon Dioxide 27.8 (21.0-32.0) mmol/L Anion Gap 15.3 H (5-15) mmol/L BUN 13 (6-25) mg/dL Creatinine 0.85 (0.51-1.17) mg/dL Est Cr Clr Drug Dosing 42.83 mL/min Estimated GFR (MDRD) > 60 mL/min Glucose 137 H (75 - 99) mg/dL Calcium 8.6 L (8.7-10.3) mg/dL Total Bilirubin 0.6 (0.2-1.0) mg/dL AST 22 (15-37) U/L ALT 20 (12-78) U/L Alkaline Phosphatase 66 (46-116) IU/L Total Protein 6.7 (6.4-8.2) g/dL Albumin 2.26 L (3.00-4.80) g/dL Red Results Last 24 Hours: Microbiology 11/17/19 06:05 Aerobic Blood Culture - Preliminary Blood - Venous - Lab Draw NO GROWTH AFTER 1 DAY Anaerobic Blood Culture - Preliminary NO GROWTH AFTER 1 DAY 11/17/19 05:40 Aerobic Blood Culture - Preliminary Blood - Venous NO GROWTH AFTER 1 DAY Anaerobic Blood Culture - Preliminary NO GROWTH AFTER 1 DAY Med Orders - Current: Current Medications Acetaminophen (Tylenol) 650 mg PO Q4H PRN PRN Reason: Fever Last Admin: 11/18/19 01:05 Dose: 650 mg Documented by: Apixaban (Eliquis) 5 mg PO BID [facility] Last Admin: 11/18/19 08:49 Dose: 5 mg Documented by: Ceftriaxone Sodium (Rocephin) 2 gm IVPUSH Q24H [facility] Last Admin: 11/17/19 16:44 Dose: Not Given Documented by: Diphenhydramine HCl (Benadryl) 50 mg IV ASDIRECTED PRN PRN Reason: REACTION TO ROCEPHIN Escitalopram Oxalate (Lexapro) 10 mg PO DAILY [facility] Last Admin: 11/18/19 08:49 Dose: 10 mg Documented by: Sodium Chloride (Normal Saline) 500 mls @ 250 mls/hr IV .BOLUS [facility] Sodium Chloride (Normal Saline) 1,000 mls @ 75 mls/hr IV ASDIRECTED [facility] Lactobacillus Rhamnosus (Culturelle) 1 cap PO BID [facility] Last Admin: 11/18/19 08:49 Dose: 1 cap Documented by: Ondansetron HCl (Zofran Odt) 4 mg PO Q4H PRN PRN Reason: nausea, able to take PO Polyethylene Glycol (Miralax) 17 gm PO 0800 [facility] Last Admin: 11/18/19 08:49 Dose: 17 gm Documented by: Prednisone (Prednisone) 7.5 mg PO DAILY [facility] Last Admin: 11/18/19 08:49 Dose: 7.5 mg Documented by: Sodium Chloride (Saline Flush) 10 ml FLUSH Q8HR PRN PRN Reason: keep vein open Discontinued Medications Ceftriaxone Sodium (Rocephin) 0.02 gm IVPUSH NOW STA Stop: 11/17/19 10:44 Last Admin: 11/17/19 11:52 Dose: 0.02 gm Documented by: Ceftriaxone Sodium (Rocephin) 0.2 gm IVPUSH ONETIME ONE Stop: 11/17/19 11:05 Last Admin: 11/17/19 12:33 Dose: 0.2 gm Documented by: Ceftriaxone Sodium (Rocephin) 2 gm IVPUSH Q24H [facility] Last Admin: 11/17/19 11:45 Dose: Not Given Documented by: Ceftriaxone Sodium (Rocephin) 1 gm IVPUSH ONETIME ONE Stop: 11/17/19 11:24 Last Admin: 11/17/19 13:03 Dose: 1 gm Documented by: Sodium Chloride (Normal Saline) 1,000 mls @ 999 mls/hr IV .BOLUS ONE Stop: 11/17/19 05:47 Last Admin: 11/17/19 04:52 Dose: 999 mls/hr Documented by: Sodium Chloride (Normal Saline) 50 mls @ 200 mls/hr IV ASDIRECTED LIN Last Admin: 11/17/19 06:36 Dose: 200 mls/hr Documented by: Iopamidol (Isovue-370 (76%)) 100 ml IV ONETIME ONE Stop: 11/17/19 06:00 Last Admin: 11/17/19 06:35 Dose: 75 ml Documented by: - Exam Quality Assessment: Supplemental Oxygen (2 liters per nasal cannula 96%), Urine Catheter (dark red/brown with sediment), DVT Prophylaxis (On Eliquis) General: Alert, Oriented (x3), Cooperative, No Acute Distress, Other (Flat affect) Lungs: Clear to Auscultation, Normal Respiratory Effort Cardiovascular: Regular Rate, Regular Rhythm, No Murmurs GI/Abdominal Exam: Normal Bowel Sounds, Soft, Non-Tender, No Distention Extremities: No Pedal Edema Skin: Warm, Dry Neurological: Normal Speech Psy/Mental Status: Alert. No: Normal Affect (Flat affect), Anxious Sepsis Event Note - Evaluation Sepsis Screening Result: No Definite Risk - Focused Exam Vital Signs: Vital Signs Temp Temp Pulse Resp BP BP Pulse Ox 11/18/19 06:35 98.4 F 74 20 136/70 96 11/18/19 03:00 98.2 F 78 20 142/70 H 94 L 11/18/19 01:35 98.8 F 11/18/19 01:05 101.0 F H 11/17/19 23:00 100.4 F 89 20 120/68 91 L - Problem List Review Problem List Initiated/Reviewed/Updated: Yes - My Orders Last 24 Hours: My Active Orders 11/18/19 09:45 Sodium Chloride 0.9% @ 75 MLS/HR(1000ml) Sodium Chloride 0.9% [Normal Saline] 1,000 ml IV ASDIRECTED Sodium Chloride 0.9% [Normal Saline] 500 ml IV .BOLUS - Plan Plan:: HPI: This is an 89 yo white female who presented to the ED via ambulance with complaints of worsening back pain for 2 days. Had a UA with culture done as an outpatient, which was positive for Ecoli x 2 strains on 11/13/19. She was placed on Bactrim DS at that time. She has a history of frequent UTIs with a right ureteral stent in place, which was last exchanged on 07/19/19 by urology. Her UTI prevention medication is nitrofurantoin 50 mg daily, which was held at the start of the Bactrim course. Patient has multiple antibiotic allergies listed. She resides at the [facility] living [facility]. Pertinent ED work-up/findings: WBC 19.1 with elevated neutrophils Na 135 Creatinine 0.79 Lactic acid 1.3 UA positive for packed RBCs, many bacteria, negative nitrites, small leukocyte esterase; culture pending COVID19 negative BC x 2 drawn/pending CT abd/pelvis noted significant right-sided hydronephrosis, possibility of pyonephrosis and an obstructed right ureteral stent are considered, right ureteral stent in position Hospital Course: 11/17/19: Had an indwelling jimenes catheter placed d/t hydronephrosis. Vital signs T 98.5F, HR 93, RR 18, BP 144/60, O2sat 93% on 1 liter per nasal cannula. Silverio Oropeza APRN CNP consulted with Dr. Santana, urologist, and Dr. Huang, infectious disease, regarding patient case. Given patient's multiple antibiotic allergies, recommendations included a trial of a cephalosporin challenge with Rocephin since it was noted to be sensitive on urine culture dated 11/13/19. Urology will plan to see patient for a right ureter stent exchange once the in fection is cleared. 11/18/19: No calls overnight. Patient's only complaint is that of fatigue. Patient had a documented fever of 101.0F at 0100. Was given tylenol with resolution. Vital signs T 98.4F, HR 74, RR 20, BP 136/70, O2sat 96% on 2 liters per nasal cannula. Patient not on oxygen at baseline, so will wean off of this today. Lung sounds clear throughout w/o pedal edema. Nursing reported that patient tolerated the rocephin w/o issue, so will plan to continue the same dose. Benadryl only if needed, not prior to infusion. WBC 14.3 with elevated neutrophils, Hgb 11.6, K 4.1, Creatinine 0.85, LFTs unremarkable, CRP 32 (CRP 50.3 on 10/04/19). Urine culture and BC x 2 pending (preliminary BC x 2 showing no growth). 24 hour intake 500 mL with output of 1345. Hospitalization problems/plan: # Pyelonephritis, acute. # Leukocytosis w/neutrophilia. # Hydronephrosis, right. # Right ureteral stent, in position, question of possible obstruction on CT. # Multiple antibiotic allergies. - NS 500 mL bolus x 1 now, then NS at 75 mL/hr - Continue rocephin 2 gm IV daily - Continue jimenes catheter - Continue accurate I & O - Continue zofran 4 mg IVP q4h prn nausea - Remove cephalosporins from allergy list - CBC, BMP in AM - Urine & blood cultures pending Chronic, stable conditions: # HTN, history. Not on any medications at baseline. # Obesity. # Recurrent major depressive disorder. Continue lexapro 10 mg daily. # Chronic idiopathic constipation. Continue probiotic 1 capsule BID. # Recurrent UTI. 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 Continue prednisone 7.5 mg daily. # Chronic neck pain. 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 Continue eliquis 5 mg BID. Hospitalization details: #FEN. NS 500 mL bolus x 1, then NS at 75 mL/hr; electrolytes stable; regular diet. #PPX. On Eliquis. #Code Status. DNR. #Emergency contact. Kylah Tyler, daughter, updated via telephone per patient request. #Disposition. Patient will remain in inpatient status to receive IVFs and IV antibiotic. Patient will need to be fever free for 24 hours w/o antipyretics in order to be considered for discharge back to assisted living facility.
[2019-11-18] MEDS ORDERED: Sodium Chloride 0.9% 500 ML IV SCH (09:45)
[2019-11-18] MEDS: cefTRIAXone 2 GM Vial IVPUSH SCH (11:55)
[2019-11-18] MEDS: Sodium Chloride 0.9% 1,000 ML IV SCH (12:13)
[2019-11-19] MEDS: Sodium Chloride 0.9% 1,000 ML IV SCH (01:34)
[2019-11-19 08:03] LABS: ANION GAP 15.6 mmol/L (5-15); CHLORIDE,CL 105 mmol/L (98-115); SODIUM,NA 143 mmol/L (136-145)
[2019-11-19] MEDS: predniSONE 5 MG Tab PO SCH (08:15)
[2019-11-19] MEDS: Apixaban 5 MG Tab PO SCH ×2 (08:15→20:24)
[2019-11-19] MEDS: Lactobacillus Rhamnosus GG (Probiotic) Cap PO SCH ×2 (08:15→20:25)
[2019-11-19] MEDS: Escitalopram 10 MG Tab PO SCH (08:15)
[2019-11-19] MEDS: Polyethylene Glycol 3350 Powder 17 GM Packet PO SCH (08:15)
--- NOTE | 2019-11-19 09:31 | PCM.PN ---
- General Info Date of Service: 11/19/19 Functional Status: Reports: Pain Controlled, Tolerating Diet. Denies: New Symptoms - Review of Systems General: Reports: Weakness, Fatigue, Malaise. Denies: Fever, Chills HEENT: Denies: Headaches Pulmonary: Denies: Shortness of Breath Cardiovascular: Denies: Chest Pain, Edema Gastrointestinal: Denies: Abdominal Pain, Constipation, Decreased Appetite, Diarrhea, Nausea, Vomiting Genitourinary: Reports: No Symptoms Musculoskeletal: Denies: Back Pain Neurological: Denies: Dizziness, Headache Psychiatric: Reports: No Symptoms - Patient Data Vitals - Most Recent: Last Vital Signs Temp 97.8 F 11/19/19 05:57 Pulse 62 11/19/19 05:57 Resp 16 11/19/19 05:57 BP 135/49 L 11/19/19 05:57 Pulse Ox 92 L 11/19/19 05:57 Weight - Most Recent: 214 lb 3.2 oz I&O - Last 24 Hours: Intake & Output 11/18/19 11/19/19 11/19/19 22:59 06:59 14:59 Intake Total 1222 674 Output Total 600 700 Balance 622 -26 Lab Results Last 24 Hours: Laboratory Results - last 24 hr 11/18/19 11/19/19 11/19/19 Range/Units 07:32 07:30 07:30 WBC 12.85 H (5.00-10.00) 10^3/uL RBC 3.84 (3.80-5.50) 10^6/uL Hgb 11.3 L (12.0-16.0) g/dL Hct 35.4 L (37.0-47.0) % MCV 92.2 H (82.0-92.0) fL MCH 29.4 (27.0-31.0) pg MCHC 31.9 L (32.0-36.0) g/dL RDW 14.1 (11.5-14.5) % Plt Count 197 (150-400) 10^3/uL MPV 9.5 (7.4-10.4) fL Immature Gran % (Auto) 0.6 (0.0-5.0) % Neut % (Auto) 78.4 H (50.0-70.0) % Lymph % (Auto) 12.1 L (20.0-40.0) % [facility] % (Auto) 7.2 (2.0-8.0) % Eos % (Auto) 1.5 (1.0-3.0) % Baso % (Auto) 0.2 (0.0-1.0) % Neut # (Auto) 10.07 H (2.50-7.00) 10^3/uL Lymph # (Auto) 1.56 (1.00-4.00) 10^3/uL [facility] # (Auto) 0.93 H (0.10-0.80) 10^3/uL Eos # (Auto) 0.19 (0.10-0.30) 10^3/uL Baso # (Auto) 0.02 (0.00-0.10) 10^3/uL Immature Gran # (Auto) 0.08 (0.00-0.50) 10^3/uL Sodium 143 (136-145) mmol/L Potassium 3.7 (3.3-5.3) mmol/L Chloride 105 (98-115) mmol/L Carbon Dioxide 26.1 (21.0-32.0) mmol/L Anion Gap 15.6 H (5-15) mmol/L BUN 12 (6-25) mg/dL Creatinine 0.68 (0.51-1.17) mg/dL Est Cr Clr Drug Dosing 53.53 mL/min Estimated GFR (MDRD) > 60 mL/min Glucose 100 H (75 - 99) mg/dL Calcium 8.3 L (8.7-10.3) mg/dL C-Reactive Protein 32.0 H (0.0-0.9) mg/dL Red Results Last 24 Hours: Microbiology 11/17/19 06:05 Aerobic Blood Culture - Preliminary Blood - Venous - Lab Draw NO GROWTH AFTER 2 DAYS Anaerobic Blood Culture - Preliminary NO GROWTH AFTER 2 DAYS 11/17/19 05:40 Aerobic Blood Culture - Preliminary Blood - Venous NO GROWTH AFTER 2 DAYS Anaerobic Blood Culture - Preliminary NO GROWTH AFTER 2 DAYS 11/17/19 05:58 Urine Culture - Preliminary Urine, Quick Cath (In-Out) NO GROWTH AFTER 1 DAY Med Orders - Current: Current Medications Acetaminophen (Tylenol) 650 mg PO Q4H PRN PRN Reason: Fever Last Admin: 11/18/19 23:01 Dose: 650 mg Documented by: Apixaban (Eliquis) 5 mg PO BID [facility] Last Admin: 11/19/19 08:15 Dose: 5 mg Documented by: Ceftriaxone Sodium (Rocephin) 2 gm IVPUSH Q24H [facility] Last Admin: 11/18/19 11:55 Dose: 2 gm Documented by: Diphenhydramine HCl (Benadryl) 50 mg IV ASDIRECTED PRN PRN Reason: REACTION TO ROCEPHIN Escitalopram Oxalate (Lexapro) 10 mg PO DAILY [facility] Last Admin: 11/19/19 08:15 Dose: 10 mg Documented by: Lactobacillus Rhamnosus (Culturelle) 1 cap PO BID [facility] Last Admin: 11/19/19 08:15 Dose: 1 cap Documented by: Ondansetron HCl (Zofran Odt) 4 mg PO Q4H PRN PRN Reason: nausea, able to take PO Polyethylene Glycol (Miralax) 17 gm PO 0800 [facility] Last Admin: 11/19/19 08:15 Dose: 17 gm Documented by: Prednisone (Prednisone) 7.5 mg PO DAILY [facility] Last Admin: 11/19/19 08:15 Dose: 7.5 mg Documented by: Sodium Chloride (Saline Flush) 10 ml FLUSH Q8HR PRN PRN Reason: keep vein open Discontinued Medications Ceftriaxone Sodium (Rocephin) 0.02 gm IVPUSH NOW STA Stop: 11/17/19 10:44 Last Admin: 11/17/19 11:52 Dose: 0.02 gm Documented by: Ceftriaxone Sodium (Rocephin) 0.2 gm IVPUSH ONETIME ONE Stop: 11/17/19 11:05 Last Admin: 11/17/19 12:33 Dose: 0.2 gm Documented by: Ceftriaxone Sodium (Rocephin) 2 gm IVPUSH Q24H [facility] Last Admin: 11/17/19 11:45 Dose: Not Given Documented by: Ceftriaxone Sodium (Rocephin) 1 gm IVPUSH ONETIME ONE Stop: 11/17/19 11:24 Last Admin: 11/17/19 13:03 Dose: 1 gm Documented by: Sodium Chloride (Normal Saline) 1,000 mls @ 999 mls/hr IV .BOLUS ONE Stop: 11/17/19 05:47 Last Admin: 11/17/19 04:52 Dose: 999 mls/hr Documented by: Sodium Chloride (Normal Saline) 50 mls @ 200 mls/hr IV ASDIRECTED [facility] Last Admin: 11/17/19 06:36 Dose: 200 mls/hr Documented by: Sodium Chloride (Normal Saline) 500 mls @ 250 mls/hr IV .BOLUS [facility] Last Admin: 11/18/19 10:05 Dose: 250 mls/hr Documented by: Sodium Chloride (Normal Saline) 1,000 mls @ 75 mls/hr IV ASDIRECTED [facility] Last Admin: 11/19/19 01:34 Dose: 75 mls/hr Documented by: Iopamidol (Isovue-370 (76%)) 100 ml IV ONETIME ONE Stop: 11/17/19 06:00 Last Admin: 11/17/19 06:35 Dose: 75 ml Documented by: - Exam Quality Assessment: Urine Catheter (dark yellow with sediment), DVT Prophylaxis (On Eliquis). No: Supplemental Oxygen General: Alert, Oriented (x3), Cooperative, No Acute Distress Lungs: Clear to Auscultation, Normal Respiratory Effort Cardiovascular: Regular Rate, Regular Rhythm, No Murmurs GI/Abdominal Exam: Normal Bowel Sounds, Non-Tender. No: Soft (mildly firm), No Distention Extremities: No Pedal Edema Skin: Warm, Dry Neurological: Normal Speech Psy/Mental Status: Alert. No: Normal Affect (Flat affect), Anxious Sepsis Event Note - Evaluation Sepsis Screening Result: No Definite Risk - Focused Exam Vital Signs: Vital Signs Temp Pulse Resp BP Pulse Ox 11/19/19 05:57 97.8 F 62 16 135/49 L 92 L 11/19/19 03:00 98.4 F 65 20 153/65 H 91 L 11/18/19 23:00 98.4 F 70 20 135/71 91 L - Problem List Review Problem List Initiated/Reviewed/Updated: Yes - My Orders Last 24 Hours: My Active Orders 11/19/19 09:18 Communication Order [RC] ROUTINE Consult to Case Management/Communications Controller [CONS] Routine 11/19/19 09:20 Consult to Physical Therapy [PT Evaluation and Treatment] [CONS] Routine 11/20/19 05:11 BMP [BASIC METABOLIC PANEL,BMP] [CHEM] AM CBC WITH AUTO DIFF [HEME] AM - Plan Plan:: HPI: This is an 89 yo white female who presented to the ED via ambulance with complaints of worsening back pain for 2 days. Had a UA with culture done as an outpatient, which was positive for Ecoli x 2 strains on 11/13/19. She was placed on Bactrim DS at that time. She has a history of frequent UTIs with a right ureteral stent in place, which was last exchanged on 07/19/19 by urology. Her UTI prevention medication is nitrofurantoin 50 mg daily, which was held at the start of the Bactrim course. Patient has multiple antibiotic allergies listed. She resides at the [facility]. Pertinent ED work-up/findings: WBC 19.1 with elevated neutrophils Na 135 Creatinine 0.79 Lactic acid 1.3 UA positive for packed RBCs, many bacteria, negative nitrites, small leukocyte esterase; culture pending COVID19 negative BC x 2 drawn/pending CT abd/pelvis noted significant right-sided hydronephrosis, possibility of pyonephrosis and an obstructed right ureteral stent are considered, right ureteral stent in position Hospital Course: 11/17/19: Had an indwelling jimenes catheter placed d/t hydronephrosis. Vital signs T 98.5F, HR 93, RR 18, BP 144/60, O2sat 93% on 1 liter per nasal cannula. Silverio Oropeza APRN CNP consulted with Dr. Santana, urologist, and Dr. Huang, infectious disease, regarding patient case. Given patient's multiple antibiotic allergies, recommendations included a trial of a cephalosporin challenge with Rocephin since it was noted to be sensitive on urine culture dated 11/13/19. Urology will plan to see patient for a right ureter stent exchange once the infection is cleared. 11/18/19: No calls overnight. Patient's only complaint is that of fatigue. Patient had a documented fever of 101.0F at 0100. Was given tylenol with resolution. Vital signs T 98.4F, HR 74, RR 20, BP 136/70, O2sat 96% on 2 liters per nasal cannula. Patient not on oxygen at baseline, so will wean off of this t coreen. Lung sounds clear throughout w/o pedal edema. Nursing reported that patient tolerated the rocephin w/o issue, so will plan to continue the same dose. Benadryl only if needed, not prior to infusion. WBC 14.3 with elevated neutrophils, Hgb 11.6, K 4.1, Creatinine 0.85, LFTs unremarkable, CRP 32 (CRP 50.3 on 10/04/19). Urine culture and BC x 2 pending (preliminary BC x 2 showing no growth). 24 hour intake 500 mL with output of 1345. 11/19/19: No calls overnight. Patient's only complaint is fatigue d/t needing her IV restarted x 2 early this morning. Tmax 100.6 F at 1100 on 11/18/19, otherwise has been afebrile. VS T 97.8F, HR 62, RR 16, BP 135/49, O2sat 92% on room air. Exam unremarkable except mildly firm abdomen, non-tender, active bowel sounds x4. WBC 12.9 with neutrophilia, Hgb 11.3, Na 143, K 3.7, Creatinine 0.68, BC x 2 prelim no growth, UC prelim no growth. Intake 2812 with oral intake of 1650 and output 1250. Nursing reports that she requires 2 assist to transfer. Hospitalization problems/plan: # Pyelonephritis, acute, improving. # Leukocytosis w/neutrophilia, improving. # Hydronephrosis, right. # Right ureteral stent, in position, question of possible obstruction on CT. # Multiple antibiotic allergies, cephalosporins removed from list. # Generalized weakness. - DC IVFs - Continue rocephin 2 gm IV daily - Clamp jimenes catheter per protocol and dc after 2 successful voids by patient - Continue accurate I & O - Social Service consult placed for discharge planning - PT consult placed to assist in discharge planning - DC zofran as has not used this - CBC, BMP in AM - Urine & blood cultures pending with prelim showing no growth Chronic, stable conditions: # HTN, history. Not on any medications at baseline. # Obesity. # Recurrent major depressive disorder. Continue lexapro 10 mg daily. # Chronic idiopathic constipation. Continue probiotic 1 capsule BID & miralax 17 gm daily. # Recurrent UTI. # Polymyalgia rheumatica, [facility] current use of systemic steroids. Continue prednisone 7.5 mg daily. # Chronic neck pain. 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 Continue eliquis 5 mg BID. # History of uterine cancer. Hospitalization details: #FEN. DC IVFs, encourage oral hydration; electrolytes stable; regular diet. #PPX. On Eliquis/SCDs. #Code Status. DNR. #Emergency contact. Kylah Tyler, daughter, updated via telephone per patient request. #Disposition. Patient is improving. She will continue with IV rocephin. Plan to dc jimenes catheter today. IVFs dc'd. She will continue with inpatient status for 1-2 more days depending upon PT consultation. Need to determine if patient is able to safely return to assisted living vs SNF/long-term care.
[2019-11-19] MEDS: cefTRIAXone 2 GM Vial IVPUSH SCH (11:30)
[2019-11-19] MEDS ORDERED: Melatonin 3 MG Tab PO PRN (23:13)
[2019-11-20] MEDS: Lactobacillus Rhamnosus GG (Probiotic) Cap PO SCH ×2 (08:18→20:30)
[2019-11-20] MEDS: Escitalopram 10 MG Tab PO SCH (08:18)
[2019-11-20] MEDS: predniSONE 5 MG Tab PO SCH (08:18)
[2019-11-20] MEDS: Apixaban 5 MG Tab PO SCH ×2 (08:18→20:30)
[2019-11-20] MEDS: Polyethylene Glycol 3350 Powder 17 GM Packet PO SCH (08:19)
--- NOTE | 2019-11-20 08:47 | PCM.PN ---
- General Info Date of Service: 11/20/19 Subjective Update: Nursing reports that patient was up to urinate during the night and she had hematuria with some blood clots. Patient denied pain for them. Functional Status: Reports: Pain Controlled, Tolerating Diet, Ambulating, Urinating. Denies: New Symptoms - Review of Systems General: Reports: Weakness. Denies: Fever, Fatigue, Malaise, Chills HEENT: Reports: Glasses. Denies: Headaches Pulmonary: Denies: Shortness of Breath Cardiovascular: Denies: Chest Pain, Edema Gastrointestinal: Reports: Other (Had a soft BM yesterday). Denies: Abdominal Pain, Constipation, Decreased Appetite, Diarrhea, Nausea, Vomiting Genitourinary: Reports: Incontinence, Hematuria. Denies: Dysuria, Frequency, Burning, Pain, Urgency, Flank Pain Musculoskeletal: Denies: Back Pain Neurological: Denies: Dizziness, Headache Psychiatric: Denies: Anxiety - Patient Data Vitals - Most Recent: Last Vital Signs Temp 99.7 F 11/20/19 06:42 Pulse 74 11/20/19 06:42 Resp 16 11/20/19 06:42 BP 169/75 H 11/20/19 06:42 Pulse Ox 92 L 11/20/19 06:42 Weight - Most Recent: 214 lb 3.2 oz I&O - Last 24 Hours: Intake & Output 11/19/19 11/20/19 11/20/19 22:59 06:59 14:59 Intake Total 200 300 Balance 200 300 Red Results Last 24 Hours: Microbiology 11/17/19 06:05 Aerobic Blood Culture - Preliminary Blood - Venous - Lab Draw NO GROWTH AFTER 3 DAYS Anaerobic Blood Culture - Preliminary NO GROWTH AFTER 3 DAYS 11/17/19 05:40 Aerobic Blood Culture - Preliminary Blood - Venous NO GROWTH AFTER 3 DAYS Anaerobic Blood Culture - Preliminary NO GROWTH AFTER 3 DAYS 11/17/19 05:58 Urine Culture - Final Urine, Quick Cath (In-Out) MIXED LYDIA SUGGESTIVE OF CONTAMINATION. Med Orders - Current: Current Medications Acetaminophen (Tylenol) 650 mg PO Q4H PRN PRN Reason: Fever Last Admin: 11/18/19 23:01 Dose: 650 mg Documented by: Apixaban (Eliquis) 5 mg PO BID [facility] Last Admin: 11/20/19 08:18 Dose: 5 mg Documented by: Benazepril HCl (Lotensin) 5 mg PO DAILY [facility] Ceftriaxone Sodium (Rocephin) 2 gm IVPUSH Q24H [facility] Last Admin: 11/19/19 11:30 Dose: 2 gm Documented by: Diphenhydramine HCl (Benadryl) 50 mg IV ASDIRECTED PRN PRN Reason: REACTION TO ROCEPHIN Escitalopram Oxalate (Lexapro) 10 mg PO DAILY [facility] Last Admin: 11/20/19 08:18 Dose: 10 mg Documented by: Lactobacillus Rhamnosus (Culturelle) 1 cap PO BID [facility] Last Admin: 11/20/19 08:18 Dose: 1 cap Documented by: Melatonin (Melatonin) 3 mg PO BEDTIME PRN PRN Reason: Insomnia Last Admin: 11/19/19 23:27 Dose: 3 mg Documented by: Polyethylene Glycol (Miralax) 17 gm PO 0800 [facility] Last Admin: 11/20/19 08:19 Dose: Not Given Documented by: Prednisone (Prednisone) 7.5 mg PO DAILY [facility] Last Admin: 11/20/19 08:18 Dose: 7.5 mg Documented by: Sodium Chloride (Saline Flush) 10 ml FLUSH Q8HR PRN PRN Reason: keep vein open Discontinued Medications Ceftriaxone Sodium (Rocephin) 0.02 gm IVPUSH NOW STA Stop: 11/17/19 10:44 Last Admin: 11/17/19 11:52 Dose: 0.02 gm Documented by: Ceftriaxone Sodium (Rocephin) 0.2 gm IVPUSH ONETIME ONE Stop: 11/17/19 11:05 Last Admin: 11/17/19 12:33 Dose: 0.2 gm Documented by: Ceftriaxone Sodium (Rocephin) 2 gm IVPUSH Q24H [facility] Last Admin: 11/17/19 11:45 Dose: Not Given Documented by: Ceftriaxone Sodium (Rocephin) 1 gm IVPUSH ONETIME ONE Stop: 11/17/19 11:24 Last Admin: 11/17/19 13:03 Dose: 1 gm Documented by: Sodium Chloride (Normal Saline) 1,000 mls @ 999 mls/hr IV .BOLUS ONE Stop: 11/17/19 05:47 Last Admin: 11/17/19 04:52 Dose: 999 mls/hr Documented by: Sodium Chloride (Normal Saline) 50 mls @ 200 mls/hr IV ASDIRECTED [facility] Last Admin: 11/17/19 06:36 Dose: 200 mls/hr Documented by: Sodium Chloride (Normal Saline) 500 mls @ 250 mls/hr IV .BOLUS [facility] Last Admin: 11/18/19 10:05 Dose: 250 mls/hr Documented by: Sodium Chloride (Normal Saline) 1,000 mls @ 75 mls/hr IV ASDIRECTED [facility] Last Admin: 11/19/19 01:34 Dose: 75 mls/hr Documented by: Iopamidol (Isovue-370 (76%)) 100 ml IV ONETIME ONE Stop: 11/17/19 06:00 Last Admin: 11/17/19 06:35 Dose: 75 ml Documented by: Ondansetron HCl (Zofran Odt) 4 mg PO Q4H PRN PRN Reason: nausea, able to take PO - Exam Quality Assessment: DVT Prophylaxis (On Eliquis and Jatin stockings). No: Supplemental Oxygen, Urine Catheter General: Alert, Oriented (x3), Cooperative, No Acute Distress, Other (Flat affect) Lungs: Clear to Auscultation, Normal Respiratory Effort Cardiovascular: Regular Rate, Regular Rhythm, No Murmurs GI/Abdominal Exam: Normal Bowel Sounds, Soft, Non-Tender, No Distention Extremities: Other (trace pitting edema to BLE, R>L) Skin: Warm, Dry Neurological: Normal Speech Psy/Mental Status: Alert, Normal Mood. No: Normal Affect (flat affect) Sepsis Event Note - Evaluation Sepsis Screening Result: No Definite Risk - Focused Exam Vital Signs: Vital Signs Temp Pulse Resp BP Pulse Ox 11/20/19 06:42 99.7 F 74 16 169/75 H 92 L 11/20/19 03:00 99.6 F 76 20 166/62 H 92 L 11/19/19 23:00 99.7 F 69 20 160/61 H 92 L - Problem List Review Problem List Initiated/Reviewed/Updated: Yes - My Orders Last 24 Hours: My Active Orders 11/19/19 09:18 Communication Order [RC] ROUTINE Consult to Case Management/Repair Service Dispatcher [CONS] Routine 11/19/19 09:20 Consult to Physical Therapy [PT Evaluation and Treatment] [CONS] Routine 11/20/19 05:11 CBC WITH AUTO DIFF [HEME] AM 11/20/19 07:25 BMP [BASIC METABOLIC PANEL,BMP] [CHEM] AM 11/20/19 09:00 Benazepril [Lotensin] 5 mg PO DAILY - Plan Plan:: HPI: This is an 89 yo white female who presented to the ED via ambulance with complaints of worsening back pain for 2 days. Had a UA with culture done as an outpatient, which was positive for Ecoli x 2 strains on 11/13/19. She was placed on Bactrim DS at that time. She has a history of frequent UTIs with a right ureteral stent in place, which was last exchanged on 07/19/19 by urology. Her UTI prevention medication is nitrofurantoin 50 mg daily, which was held at the start of the Bactrim course. Patient has multiple antibiotic allergies listed. She resides at the [facility]. Pertinent ED work-up/findings: WBC 19.1 with elevated neutrophils Na 135 Creatinine 0.79 Lactic acid 1.3 UA positive for packed RBCs, many bacteria, negative nitrites, small leukocyte esterase; culture pending COVID19 negative BC x 2 drawn/pending CT abd/pelvis noted significant right-sided hydronephrosis, possibility of pyonephrosis and an obstructed right ureteral stent are considered, right ureteral stent in position Hospital Course: 11/17/19: Had an indwelling jimenes catheter placed d/t hydronephrosis. Vital signs T 98.5F, HR 93, RR 18, BP 144/60, O2sat 93% on 1 liter per nasal cannula. Silverio Oropeza APRN [employer] consulted with Dr. Santana, urologist, and Dr. Huang, infectious disease, regarding patient case. Given patient's multiple antibiotic allergies, recommendations included a trial of a cephalosporin challenge with Rocephin since it was noted to be sensitive on urine culture dated 11/13/19. Urology will plan to see patient for a right ureter stent exchange once the infection is cleared. 11/18/19: No calls overnight. Patient's only complaint is that of fatigue. Patient had a documented fever of 101.0F at 0100. Was given tylenol with resolution. Vital signs T 98.4F, HR 74, RR 20, BP 136/70, O2sat 96% on 2 liters per nasal cannula. Patient not on oxygen at baseline, so will wean off of this today. Lung sounds clear throughout w/o pedal edema. Nursing reported that patient tolerated the rocephin w/o issue, so will plan to continue the same dose. Benadryl only if needed, not prior to infusion. WBC 14.3 with elevated neutrophils, Hgb 11.6, K 4.1, Creatinine 0.85, LFTs unremarkable, CRP 32 (CRP 50.3 on 10/04/19). Urine culture and BC x 2 pending (preliminary BC x 2 showing no growth). 24 hour intake 500 mL with output of 1345. 11/19/19: No calls overnight. Patient's only complaint is fatigue d/t needing her IV restarted x 2 early this morning. Tmax 100.6 F at 1100 on 11/18/19, otherwise has been afebrile. VS T 97.8F, HR 62, RR 16, BP 135/49, O2sat 92% on room air. Exam unremarkable except mildly firm abdomen, non-tender, active bowel sounds x4. WBC 12.9 with neutrophilia, Hgb 11.3, Na 143, K 3.7, Creatinine 0.68, BC x 2 prelim no growth, UC prelim no growth. Intake 2812 with oral intake of 1650 and output 1250. Nursing reports that she requires 2 assist to transfer. 11/20/19: No calls overnight. Successfully discontinued the jimenes catheter yesterday afternoon with patient being able to void w/o issues. Nursing staff reported hematuria early this morning along with some blood clots passed. Patient denies painful urination, back, or abdominal pain. She has been afebrile for the past 24-36 hours. BPs have been running high at 150-160s systolic most of the time. Review of [facility] chart notes patient used to be on benazepril 5 mg daily, but has been off of this since 09/2018. VS T 99.7F, HR 74, RR 16, BP 169/75, O2sat 92% on room air. BC x 2 prelim showing no growth. Urine culture reported as mixed microflora, however patient had been on Bactrim prior to this culture being obtained d/t a positive urine culture collected on 11/13/19 which was positive for 2 strains of Ecoli. WBC 12.3 w/neutrophilia (baseline WBC with PMR/prednisone use appears to be between 11-12), Hgb 11.0, Creatinine 0.66, Na 141, K 3.6. Staff from assisted living facility mentioned to nursing that they have noticed she is more depressed since the pandemic and question if her medication could be upped or something added. Total intake 1537 with 24 hour oral intake of 550 & urine output of 1200. Hospitalization problems/plan: # Pyelonephritis, acute, improving. # Hematuria episode with blood clots. # Anemia, likely acute blood loss from ureteral stent. # Generalized weakness. # HTN. # Leukocytosis w/neutrophilia, improved, appears to be at baseline. # Hydronephrosis, right. # Right ureteral stent, in position, question of possible obstruction on CT. # Multiple antibiotic allergies, cephalosporins removed from list. - Continue rocephin 2 gm IV daily - Restart benazepril 5 mg po daily - Push oral fluids - Continue accurate I & O - Awaiting PT and SS consult regarding discharge planning/appropriate placement - CBC, BMP in AM Chronic, stable conditions: # Obesity. # Recurrent major depressive disorder. Continue lexapro 10 mg daily (this is maximum dose for elderly). Consideration to be given for starting a second agent pending location of discharge and how patient feels about it. # Chronic idiopathic constipation. Continue probiotic 1 capsule BID & miralax 17 gm daily. # Recurrent UTI. # Polymyalgia rheumatica, [facility] current use of systemic steroids. Continue prednisone 7.5 mg daily. # Chronic neck pain. 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 Continue eliquis 5 mg BID. # History of uterine cancer. Hospitalization details: #FEN. Encourage oral hydration; electrolytes stable; regular diet. #PPX. On Eliquis/SCDs. #Code Status. DNR. #Emergency contact. Kylah Tyler, daughter, she will be updated with the discharge options/plan after PT and SW have evaluated patient. Hospital staff to provide update to daughter. #Disposition. Awaiting PT consultation to determine discharge location. Continue with IV rocephin d/t previous positive urine culture. Monitor hematuria/clots and bladder scan if patient is unable to void.
[2019-11-20 08:48] LABS: ANION GAP 17.2 mmol/L (5-15); CHLORIDE,CL 103 mmol/L (98-115); SODIUM,NA 141 mmol/L (136-145)
[2019-11-20] MEDS: Benazepril 10 MG Tab PO SCH (09:07)
[2019-11-20] MEDS: cefTRIAXone 2 GM Vial IVPUSH SCH (11:03)
[2019-11-21 07:54] LABS: ANION GAP 13.8 mmol/L (5-15); CHLORIDE,CL 104 mmol/L (98-115); SODIUM,NA 141 mmol/L (136-145)
[2019-11-21] MEDS: predniSONE 5 MG Tab PO SCH (08:19)
[2019-11-21] MEDS: Polyethylene Glycol 3350 Powder 17 GM Packet PO SCH (08:19)
[2019-11-21] MEDS: Lactobacillus Rhamnosus GG (Probiotic) Cap PO SCH (08:20)
[2019-11-21] MEDS: Escitalopram 10 MG Tab PO SCH (08:20)
[2019-11-21] MEDS: Benazepril 10 MG Tab PO SCH (08:21)
[2019-11-21] MEDS: Apixaban 5 MG Tab PO SCH (08:21)
--- NOTE | 2019-11-21 09:52 | PCM.DCSUM1 ---
Discharge Summary - Hospital Course Diagnosis: Stroke: No - Discharge Data Discharge Date: 11/21/19 Discharge Disposition: DC/Tfer to SNF 03 Condition: Good - Referral to Home Health Primary Care Physician: Valery Shaffer MD - Patient Summary/Data Consults: Consultations 11/19/19 09:18 Consult to Case Management/Laun[facility] [CONS] Routine 11/19/19 09:20 Consult to Physical Therapy [PT Evaluation and Treatment] [CONS] Routine - Patient Instructions Diet: Regular Diet as Tolerated Diet, Other: encourage water intake at least 1000ml per 24 hrs. Activity: As Tolerated Driving: Do Not Drive Showering/Bathing: May Shower Notify Provider of: Fever, Nausea and/or Vomiting Other/Special Instructions: --Important to encourage p.o. fluid intake 1000 mL/day minimal. --Increase bupropion HCL to twice daily NOV 24. --Urology consultation placed for stent exchange [facility]. --Restarted benazepril 5 mg po daily. --Report if no urine output or recurrent blood clots in urine - Discharge Plan *PRESCRIPTION DRUG MONITORING PROGRAM REVIEWED*: Not Applicable *COPY OF PRESCRIPTION DRUG MONITORING REPORT IN PATIENT JACOB: Not Applicable Prescriptions/Med Rec: buPROPion HCL [Bupropion Xl] 150 mg PO DAILY #60 tab.er.24h Apixaban [Eliquis] 5 mg PO BID #60 Escitalopram [Lexapro] 10 mg PO DAILY #30 Benazepril [Lotensin] 5 mg PO DAILY #30 tablet Melatonin 3 mg PO BEDTIME PRN #30 tablet PRN Reason: Insomnia polyethylene glycoL 3350 [MiraLAX] 17 gm PO 0800 #30 packet predniSONE [Prednisone] 7.5 mg PO DAILY #45 cefTRIAXone [Rocephin] 1 gm IM DAILY #5 vial Acetaminophen [Tylenol] 650 mg PO Q4H PRN #60 tablet PRN Reason: Fever L.acidophil/L.plantar/Bifido 7 [Up4 Probiotics Adlt 50 Pls 25B] 1 tab PO BID #30 Home Medications: Home Meds Calcium Carbonate/Vitamin D3 [Calcium 600 + Vit D Tablet] 1 each PO BIDMEALS 04/19/18 [History] Trolamine Salicylate/Aloe Vera [Aspercreme 10%] 1 applic TOP TID PRN 06/12/19 [History] Acetaminophen [Tylenol] 650 mg PO Q4H PRN #60 tablet 11/21/19 [Rx] Apixaban [Eliquis] 5 mg PO BID #60 11/21/19 [Rx] Benazepril [Lotensin] 5 mg PO DAILY #30 tablet 11/21/19 [Rx] Escitalopram [Lexapro] 10 mg PO DAILY #30 11/21/19 [Rx] L.acidophil/L.plantar/Bifido 7 [Up4 Probiotics Adlt 50 Pls 25B] 1 tab PO BID #30 11/21/19 [Rx] Melatonin 3 mg PO BEDTIME PRN #30 tablet 11/21/19 [Rx] buPROPion HCL [Bupropion Xl] 150 mg PO DAILY #60 tab.er.24h 11/21/19 [Rx] cefTRIAXone [Rocephin] 1 gm IM DAILY #5 vial 11/21/19 [Rx] polyethylene glycoL 3350 [MiraLAX] 17 gm PO 0800 #30 packet 11/21/19 [Rx] predniSONE [Prednisone] 7.5 mg PO DAILY #45 11/21/19 [Rx] Referrals: [facility] [Outside] - Discharge Summary/Plan Comment DC Time >30 min.: Yes Discharge Summary/Plan Comment: Final diagnosis # Pyelonephritis, acute, improving. # Hematuria episode with blood clots. # Anemia, likely acute blood loss from ureteral stent. # Generalized weakness. # HTN. # Leukocytosis w/neutrophilia, improved, appears to be at baseline. # Hydronephrosis, right. # Right ureteral stent, in position, question of possible obstruction on CT. # Multiple antibiotic allergies, cephalosporins removed from list after [facility] challenge Chronic, stable conditions: # Obesity. # Recurrent major depressive disorder. Continue some lexapro 10 mg tye, added bupropion HCl for added dopamine # Chronic idiopathic constipation. Continue probiotic 1 capsule BID & miralax 17 gm daily. # Recurrent UTI. # Polymyalgia rheumatica, meterman current use of systemic steroids. Continue prednisone 7.5 mg daily. # Chronic neck pain. 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 Continue eliquis 5 mg BID. # History of uterine cancer. History summary 89 yo white female who presented to the ED via ambulance with complaints of worsening back pain for 2 days. Had a UA with culture done as an outpatient, which was positive for Ecoli x 2 strains on 11/13/19. She was placed on Bactrim DS at that time. She has a history of frequent UTIs with a right ureteral stent in place, which was last exchanged on 07/19/19 by urology. Her UTI prevention medication is nitrofurantoin 50 mg daily, which was held at the start of the Bactrim course. Patient has multiple antibiotic allergies listed. She resides at the [facility] living [facility]. Pertinent ED work-up/findings: WBC 19.1 with elevated neutrophils Na 135 Creatinine 0.79 Lactic acid 1.3 UA positive for packed RBCs, many bacteria, negative nitrites, small leukocyte esterase; culture pending COVID19 negative BC x 2 drawn/pending CT abd/pelvis noted significant right-sided hydronephrosis, possibility of pyonephrosis and an obstructed right ureteral stent are considered, right ureteral stent in position Hospital Course: 11/17/19: Had an indwelling jimenes catheter placed d/t hydronephrosis. Vital signs T 98.5F, HR 93, RR 18, BP 144/60, O2sat 93% on 1 liter per nasal cannula. This author consulted with Dr. Santana, urologist, and Dr. Huang, infectious disease, regarding patient case. Options were considered regarding carbapems or an antibiotic trial. This author decided on a cephalosporin antibiotic trial nelida it was noted to be sensitive on urine culture dated 11/13/19. Urology will plan to see patient for a right ureter stent exchange once the infection is cleared. 11/18/19: No calls overnight. Patient's only complaint is that of fatigue. Patient had a documented fever of 101.0F at 0100. Was given tylenol with resolution. Vital signs T 98.4F, HR 74, RR 20, BP 136/70, O2sat 96% on 2 liters per nasal cannula. Patient not on oxygen at baseline, so will wean off of this today. Lung sounds clear throughout w/o pedal edema. Nursing reported that patie nt tolerated the rocephin w/o issue, so will plan to continue the same dose. Benadryl only if needed, not prior to infusion. WBC 14.3 with elevated neutrophils, Hgb 11.6, K 4.1, Creatinine 0.85, LFTs unremarkable, CRP 32 (CRP 50.3 on 10/04/19). Urine culture and BC x 2 pending (preliminary BC x 2 showing no growth). 24 hour intake 500 mL with output of 1345. 11/19/19: No calls overnight. Patient's only complaint is fatigue d/t needing her IV restarted x 2 early this morning. Tmax 100.6 F at 1100 on 11/18/19, otherwise has been afebrile. VS T 97.8F, HR 62, RR 16, BP 135/49, O2sat 92% on room air. Exam unremarkable except mildly firm abdomen, non-tender, active bowel sounds x4. WBC 12.9 with neutrophilia, Hgb 11.3, Na 143, K 3.7, Creatinine 0.68, BC x 2 prelim no growth, UC prelim no growth. Intake 2812 with oral intake of 1650 and output 1250. Nursing reports that she requires 2 assist to transfer. 11/20/19: No calls overnight. Successfully discontinued the jimenes catheter yesterday afternoon with patient being able to void w/o issues. Nursing staff reported hematuria early this morning along with some blood clots passed. Patient denies painful urination, back, or abdominal pain. She has been afebrile for the past 24-36 hours. BPs have been running high at 150-160s systolic most of the time. Review of [facility] chart notes patient used to be on benazepril 5 mg daily, but has been off of this since 09/2018. VS T 99.7F, HR 74, RR 16, BP 169/75, O2sat 92% on room air. BC x 2 prelim showing no growth. Urine culture reported as mixed microflora, however patient had been on Bactrim prior to this culture being obtained d/t a positive urine culture collected on 11/13/19 which was positive for 2 strains of Ecoli. WBC 12.3 w/neutrophilia (baseline WBC with PMR/prednisone use appears to be between 11-12), Hgb 11.0, Creatinine 0.66, Na 141, K 3.6. Staff from assisted living facility mentioned to nursing that they have noticed she is more depressed since the pandemic and question if her m edication could be upped or something added. Total intake 1537 with 24 hour oral intake of 550 & urine output of 1200. 11/21/2019; no overnight concerns, patient has mild ongoing hematuria however no more blood clots. Patient did have a mild episode of dizziness upon attempting to get out of bed this morning with negative orthostatics. No chest pain no shortness of breath. Adequate urinary output with no urinary retention. 7.2 with corresponding hematocrit 35.3 electrolytes normal, normalized anion gap. As a Prill was started for elevated systolic blood pressure. Disposition --Patient will be discharged from inpatient status to [facility] for PT OT senior living --Urology consultation placed for stent exchange [facility] --Restarted benazepril 5 mg po daily --Important to encourage p.o. fluid intake 1000 mL/day minimal --Increase bupropion HCL to twice daily NOV 24 --Report if no urine output or recurrent blood clots in urine --Emergency contact. Kylah Tyler, daughter, --Code Status. DNR. - General Info Functional Status: Reports: Pain Controlled, Tolerating Diet, Ambulating, Urinating, New Symptoms (slight dizziness upon standing am of rounds: ) - Review of Systems General: Reports: Weakness, Malaise HEENT: Reports: No Symptoms Pulmonary: Reports: No Symptoms Cardiovascular: Reports: No Symptoms Gastrointestinal: Denies: Abdominal Pain, Constipation Genitourinary: Reports: Hematuria. Denies: Burning, Incontinence, Retention, Flank Pain Skin: Reports: No Symptoms Neurological: Reports: Pre-Existing Deficit, Difficulty Walking, Weakness, Gait Disturbance. Denies: Confusion, Syncope, Change in Speech Psychiatric: Reports: Depression. Denies: Confusion - Patient Data Vitals - Most Recent: Last Vital Signs Temp 98.3 F 11/21/19 06:02 Pulse 71 11/21/19 06:02 Resp 18 11/21/19 06:02 BP 140/95 H 11/21/19 08:21 Pulse Ox 92 L 11/21/19 06:02 Weight - Most Recent: 214 lb 3.2 oz I&O - Last 24 hours: Intake & Output 11/20/19 11/21/19 11/21/19 22:59 06:59 14:59 Intake Total 480 200 Balance 480 200 Lab Results - Last 24 hrs: Laboratory Results - last 24 hr 11/21/19 11/21/19 Range/Units 07:15 07:15 WBC 12.63 H (5.00-10.00) 10^3/uL RBC 3.87 (3.80-5.50) 10^6/uL Hgb 11.2 L (12.0-16.0) g/dL Hct 35.3 L (37.0-47.0) % MCV 91.2 (82.0-92.0) fL MCH 28.9 (27.0-31.0) pg MCHC 31.7 L (32.0-36.0) g/dL RDW 14.2 (11.5-14.5) % Plt Count 212 (150-400) 10^3/uL MPV 9.6 (7.4-10.4) fL Immature Gran % (Auto) 1.0 (0.0-5.0) % Neut % (Auto) 76.5 H (50.0-70.0) % Lymph % (Auto) 12.3 L (20.0-40.0) % [place] % (Auto) 7.6 (2.0-8.0) % Eos % (Auto) 2.4 (1.0-3.0) % Baso % (Auto) 0.2 (0.0-1.0) % Neut # (Auto) 9.67 H (2.50-7.00) 10^3/uL Lymph # (Auto) 1.55 (1.00-4.00) 10^3/uL [place] # (Auto) 0.96 H (0.10-0.80) 10^3/uL Eos # (Auto) 0.30 (0.10-0.30) 10^3/uL Baso # (Auto) 0.03 (0.00-0.10) 10^3/uL Immature Gran # (Auto) 0.12 (0.00-0.50) 10^3/uL Sodium 141 (136-145) mmol/L Potassium 3.9 (3.3-5.3) mmol/L Chloride 104 (98-115) mmol/L Carbon Dioxide 27.1 (21.0-32.0) mmol/L Anion Gap 13.8 (5-15) mmol/L BUN 13 (6-25) mg/dL Creatinine 0.66 (0.51-1.17) mg/dL Est Cr Clr Drug Dosing 55.16 mL/min Estimated GFR (MDRD) > 60 mL/min Glucose 99 (75 - 99) mg/dL Calcium 8.6 L (8.7-10.3) mg/dL SUMIT Results - Last 24 hrs: Microbiology 11/17/19 06:05 Aerobic Blood Culture - Preliminary Blood - Venous - Lab Draw NO GROWTH AFTER 4 DAYS Anaerobic Blood Culture - Preliminary NO GROWTH AFTER 4 DAYS 11/17/19 05:40 Aerobic Blood Culture - Preliminary Blood - Venous NO GROWTH AFTER 4 DAYS Anaerobic Blood Culture - Preliminary NO GROWTH AFTER 4 DAYS Med Orders - Current: Current Medications Acetaminophen (Tylenol) 650 mg PO Q4H PRN PRN Reason: Fever Last Admin: 11/18/19 23:01 Dose: 650 mg Documented by: Apixaban (Eliquis) 5 mg PO BID [facility] Last Admin: 11/21/19 08:21 Dose: 5 mg Documented by: Benazepril HCl (Lotensin) 5 mg PO DAILY [facility] Last Admin: 11/21/19 08:21 Dose: 5 mg Documented by: Ceftriaxone Sodium (Rocephin) 2 gm IVPUSH Q24H [facility] Last Admin: 11/20/19 11:03 Dose: 2 gm Documented by: Diphenhydramine HCl (Benadryl) 50 mg IV ASDIRECTED PRN PRN Reason: REACTION TO ROCEPHIN Escitalopram Oxalate (Lexapro) 10 mg PO DAILY [facility] Last Admin: 11/21/19 08:20 Dose: 10 mg Documented by: Lactobacillus Rhamnosus (Culturelle) 1 cap PO BID [facility] Last Admin: 11/21/19 08:20 Dose: 1 cap Documented by: Melatonin (Melatonin) 3 mg PO BEDTIME PRN PRN Reason: Insomnia Last Admin: 11/19/19 23:27 Dose: 3 mg Documented by: Polyethylene Glycol (Miralax) 17 gm PO 0800 [facility] Last Admin: 11/21/19 08:19 Dose: 17 gm Documented by: Prednisone (Prednisone) 7.5 mg PO DAILY [facility] Last Admin: 11/21/19 08:19 Dose: 7.5 mg Documented by: Sodium Chloride (Saline Flush) 10 ml FLUSH Q8HR PRN PRN Reason: keep vein open Last Admin: 11/20/19 11:03 Dose: 10 ml Documented by: Discontinued Medications Ceftriaxone Sodium (Rocephin) 0.02 gm IVPUSH NOW STA Stop: 11/17/19 10:44 Last Admin: 11/17/19 11:52 Dose: 0.02 gm Documented by: Ceftriaxone Sodium (Rocephin) 0.2 gm IVPUSH ONETIME ONE Stop: 11/17/19 11:05 Last Admin: 11/17/19 12:33 Dose: 0.2 gm Documented by: Ceftriaxone Sodium (Rocephin) 2 gm IVPUSH Q24H [facility] Last Admin: 11/17/19 11:45 Dose: Not Given Documented by: Ceftriaxone Sodium (Rocephin) 1 gm IVPUSH ONETIME ONE Stop: 11/17/19 11:24 Last Admin: 11/17/19 13:03 Dose: 1 gm Documented by: Sodium Chloride (Normal Saline) 1,000 mls @ 999 mls/hr IV .BOLUS ONE Stop: 11/17/19 05:47 Last Admin: 11/17/19 04:52 Dose: 999 mls/hr Documented by: Sodium Chloride (Normal Saline) 50 mls @ 200 mls/hr IV ASDIRECTED [facility] Last Admin: 11/17/19 06:36 Dose: 200 mls/hr Documented by: Sodium Chloride (Normal Saline) 500 mls @ 250 mls/hr IV .BOLUS [facility] Last Admin: 11/18/19 10:05 Dose: 250 mls/hr Documented by: Sodium Chloride (Normal Saline) 1,000 mls @ 75 mls/hr IV ASDIRECTED [facility] Last Admin: 11/19/19 01:34 Dose: 75 mls/hr Documented by: Iopamidol (Isovue-370 (76%)) 100 ml IV ONETIME ONE Stop: 11/17/19 06:00 Last Admin: 11/17/19 06:35 Dose: 75 ml Documented by: Ondansetron HCl (Zofran Odt) 4 mg PO Q4H PRN PRN Reason: nausea, able to take PO - Exam Quality Assessment: Reports: DVT Prophylaxis. Denies: Supplemental Oxygen General: Reports: Alert, Oriented, No Acute Distress Lungs: Reports: Clear to Auscultation, Normal Respiratory Effort Cardiovascular: Reports: Regular Rate, Regular Rhythm (Female) Exam: Deferred Extremities: No Pedal Edema Neurological: Reports: Normal Speech, Normal Tone. Denies: Normal Gait Psy/Mental Status: Reports: Alert, Depressed
[2019-11-21] MEDS ORDERED: diphenhydrAMINE 50 MG/ML SDV IVPUSH ONE (10:12)
[2019-11-21] MEDS ORDERED: Cetirizine 10 MG Tab PO ONE (10:13)
[2019-11-21] MEDS: cefTRIAXone 2 GM Vial IVPUSH SCH (11:09)
== END 2019-11-21 11:25 | DRG 690 ==
LOC: KA.ED 04:05 → KA.MS 07:30 → UNDOADMIN 07:30 → KA.MS 08:17 → UNDODISIN 11-21 11:25
PROVIDERS: ADMIT Family Medicine; ATTEND Family Medicine
PROC: 0T9B70Z Drainage of Bladder with Drainage Device, Via Natural or Artificial Opening (ICD-10-PCS; principal; 2019-11-17)
DX: N13.6 Pyonephrosis (principal); N39.0 Urinary tract infection, site not specified; D72.828 Other elevated white blood cell count; D62 Acute posthemorrhagic anemia; F33.9 Major depressive disorder, recurrent, unspecified; R31.9 Hematuria, unspecified; I10 Essential (primary) hypertension; Z96.0 Presence of urogenital implants; E66.9 Obesity, unspecified; K59.04 Chronic idiopathic constipation; R32 Unspecified urinary incontinence; M35.3 Polymyalgia rheumatica; G89.29 Other chronic pain; M54.2 Cervicalgia; Z20.828 Contact with and (suspected) exposure to other viral communicable diseases; H54.7 Unspecified visual loss; E78.00 Pure hypercholesterolemia, unspecified; Z96.659 Presence of unspecified artificial knee joint; Z79.899 Other long term (current) drug therapy; Z98.890 Other specified postprocedural states; Z80.1 Family history of malignant neoplasm of trachea, bronchus and lung; Z82.49 Family history of ischemic heart disease and other diseases of the circulatory system; Z79.52 Long term (current) use of systemic steroids; Z88.1 Allergy status to other antibiotic agents; Z87.440 Personal history of urinary (tract) infections; Z86.711 Personal history of pulmonary embolism; Z79.01 Long term (current) use of anticoagulants; Z85.42 Personal history of malignant neoplasm of other parts of uterus; Z87.442 Personal history of urinary calculi; Z98.49 Cataract extraction status, unspecified eye; Z90.49 Acquired absence of other specified parts of digestive tract; Z90.710 Acquired absence of both cervix and uterus
CPT/HCPCS: 36415; 74178; 80048; 81001; 83605; 85025; 87040 ×2; 87086; 96360; 99284; 99285; J7030; J7050; Q9967; U0002; 51702; 80053; 86140; 97161-GP; A9270-GY; J0696; J1200; J7040; J7512

== ENCOUNTER 2020-04-14 23:01 | Emergency (ER) | payer MEDICARE, BC ==
--- NOTE | 2020-04-14 23:27 | EDM.PDOC ---
ED HPI GENERAL MEDICAL PROBLEM - General Chief Complaint: General Stated Complaint: FALL Time Seen by Provider: 04/14/20 23:02 Source of Information: Reports: Patient, Long-Term Records History Limitations: Reports: Altered Mental Status - History of Present Illness INITIAL COMMENTS - FREE TEXT/NARRATIVE: Kate, 89-year-old female, presents via [facility] van after she sustained a contusion to the head this evening. Staff states she fell striking the wall causing a dent in the wall. She was laying supine on the floor with her eyes wide open unresponsive, apparently unconscious for nearly 1 minute before she was spontaneously aroused. This was followed by 3 emesis, and contact with family members as well as on- call provider. Recommendation for evaluation was given. She then was in her nightgown as she had soiled the previous clothing during her emesis. Since she was appropriate to her baseline the secured her status in the transport van and drove her to the facility for evaluation. No further sequela occurred from that point to her arrival. Onset: Today, Sudden Onset Date: 04/14/20 Onset Time: 22:00 Duration: Hour(s): Location: Reports: Head Quality: Reports: Ache Severity: Moderate Improves with: Reports: None Worsens with: Reports: None Context: Reports: Activity Associated Symptoms: Reports: No Other Symptoms - Related Data Allergies Allergy/AdvReac Type Severity Reaction Status Date / Time piperacillin Allergy Intermediate Itching Verified 04/14/20 23:32 tazobactam Allergy Intermediate Itching Verified 04/14/20 23:32 Home Meds: Home Meds Calcium Carbonate/Vitamin D3 [Calcium 600 + Vit D Tablet] 1 each PO BIDMEALS 04/19/18 [History] Trolamine Salicylate/Aloe Vera [Aspercreme 10%] 1 applic TOP TID PRN 06/12/19 [History] Acetaminophen [Tylenol] 650 mg PO Q4H PRN #60 tablet 11/21/19 [Rx] Apixaban [Eliquis] 5 mg PO BID #60 11/21/19 [Rx] Benazepril [Lotensin] 5 mg PO DAILY #30 tablet 11/21/19 [Rx] Escitalopram [Lexapro] 10 mg PO DAILY #30 11/21/19 [Rx] L.acidophil/L.plantar/Bifido 7 [Up4 Probiotics Adlt 50 Pls 25B] 1 tab PO BID #30 11/21/19 [Rx] Melatonin 3 mg PO BEDTIME PRN #30 tablet 11/21/19 [Rx] buPROPion HCL [Bupropion Xl] 150 mg PO DAILY #60 tab.er.24h 11/21/19 [Rx] cefTRIAXone [Rocephin] 1 gm IM DAILY #5 vial 11/21/19 [Rx] polyethylene glycoL 3350 [MiraLAX] 17 gm PO 0800 #30 packet 11/21/19 [Rx] predniSONE [Prednisone] 7.5 mg PO DAILY #45 11/21/19 [Rx] Past Medical History HEENT History: Reports: Cataract, Impaired Vision Other HEENT History: wears glasses Cardiovascular History: Reports: High Cholesterol, Hypertension Respiratory History: Reports: None Other Respiratory History: multiple subsegmental pulmonary emboli without acute cor pulmonale Genitourinary History: Reports: Renal Calculus, Urinary Incontinence DISPATCH MANAGER History: Reports: Musculoskeletal History: Reports: Neck Pain, Chronic, Other (See Below) Other Musculoskeletal History: 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 Neurological History: Reports: None Psychiatric History: Reports: None Endocrine/Metabolic History: Reports: None Hematologic History: Reports: Blood Transfusion(s) 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 Dermatologic History: Reports: None - Infectious Disease History Infectious Disease History: Reports: Chicken Pox Other Infectious Disease History: unknown - Past Surgical History Head Surgeries/Procedures: Reports: None HEENT Surgical History: Reports: Cataract Surgery Cardiovascular Surgical History: Reports: None Respiratory Surgical History: Reports: None GI Surgical History: Reports: Appendectomy, Cholecystectomy Female Surgical History: Reports: Hysterectomy, Kidney stone extraction Endocrine Surgical History: Reports: None Neurological Surgical History: Reports: None Musculoskeletal Surgical History: Reports: Knee Replacement Oncologic Surgical History: Reports: None Other Oncologic Surgeries/Procedures: hysterectomy Dermatological Surgical History: Reports: None Social & Family History - Family History Family Medical History: No Pertinent Family History Cardiac: Reports: CAD Oncologic: Reports: Lung - Caffeine Use Caffeine Use: Reports: Tea - Living Situation & Occupation Living situation: Reports: ED ROS GENERAL - Review of Systems Review Of Systems: Comprehensive ROS is negative, except as noted in HPI. ED EXAM, GENERAL - Physical Exam Exam: See Below Free Text/Narrative:: Alert with dementia type confusion. She does not appropriately remember the event. States she is able to see and hear with no difficulty at this time. There is mild headache but nothing significant. PERRLA, EOM intact. [place] mucous membranes moist in appearance. Neck is soft supple no lymphadenopathy. There is a significant hematoma in the right posterior parietal hand lateral occipital region with no specific tenderness, no laceration noted. Thorax is clear with no wheezes. Cardiac is regular. There is no deficit to the upper extremities nor complaint to the shoulders or the extremities themselves with skin warm and dry and radial pulse present. No abdominal nor flank nor pelvic pain. Moves lower extremities as well as upper extremities with no difficulty. Course - Vital Signs Last Recorded V/S: Last Vital Signs Temp 96.9 F 04/14/20 23:21 Pulse 85 04/14/20 23:21 Resp 20 04/14/20 23:21 BP 144/68 H 04/14/20 23:21 Pulse Ox 93 L 04/14/20 23:21 - Orders/Labs/Meds Orders: Active Orders 24 hr Category Date Time Status Head w wo Cont [CT] Stat Exams 04/14/20 23:26 Ordered Departure - Departure Time of Disposition: 23:32 Disposition: DC/Tfer to SNF 03 Condition: Fair Clinical Impression: Post concussion syndrome, At risk for hemorrhage associated with anticoagulation therapy, Scalp hematoma - Discharge Information *PRESCRIPTION DRUG MONITORING PROGRAM REVIEWED*: Not Applicable *COPY OF PRESCRIPTION DRUG MONITORING REPORT IN PATIENT JACOB: Not Applicable Referrals: Valery Shaffer MD [Primary Care Provider] - Forms: ED Department Discharge Additional Instructions: No evidence of intracranial hemorrhage nor fracture of the skull. She may return to home and monitored for neurologic changes. Neuro checks Q2 hours x 4, then Q4 hr X 3. With a normal findings of the evaluation here other than hematoma, consideration if status change occurs the possibility of bleed occurring later is a possibility when on anticoagulation therapy. With her known DNR status, limited intervention would be likely unless family members and medical staff would change CODE STATUS. Continue medications as directed and all activities as previously directed. Contact clinic tomorrow for recheck scheduling on long-term care rounds. Sepsis Event Note (ED) - Focused Exam Vital Signs: Vital Signs Temp Pulse Resp BP Pulse Ox 04/14/20 23:21 96.9 F 85 20 144/68 H 93 L - Problem List & Annotations (1) Scalp hematoma SNOMED Code(s): 741783892 Code(s): S00.03XA - CONTUSION OF SCALP, INITIAL ENCOUNTER Status: Acute Priority: High Current Visit: Yes Qualifiers: Encounter type: initial encounter Qualified Code(s): S00.03XA - Contusion of scalp, initial encounter (2) At risk for hemorrhage associated with anticoagulation therapy SNOMED Code(s): 830066297, 130389372 Code(s): Z91.89 - OTH PERSONAL RISK FACTORS, NOT ELSEWHERE CLASSIFIED Status: Acute Priority: High Current Visit: Yes (3) Post concussion syndrome SNOMED Code(s): 64946215 Code(s): F07.81 - POSTCONCUSSIONAL SYNDROME Status: Acute Priority: High Current Visit: Yes (4) Fall SNOMED Code(s): 8504831, 761425967 Code(s): W19.XXXA - UNSPECIFIED FALL, INITIAL ENCOUNTER Status: Acute Current Visit: Yes Qualifiers: Encounter type: initial encounter Qualified Code(s): W19.XXXA - Unspecified fall, initial encounter - Problem List Review Problem List Initiated/Reviewed/Updated: Yes - My Orders Last 24 Hours: My Active Orders 04/14/20 23:26 Head w wo Cont [CT] Stat - Assessment/Plan Last 24 Hours: My Active Orders 04/14/20 23:26 Head w wo Cont [CT] Stat Plan: No evidence of intracranial hemorrhage nor fracture of the skull. She may return to home and monitored for neurologic changes. Neuro checks Q2 hours x 4, then Q4 hr X 3. With a normal findings of the evaluation here other than hematoma, consideration if status change occurs the possibility of bleed occurring later is a possibility when on anticoagulation therapy. With her known DNR status, limited intervention would be likely unless family members and medical staff would change CODE STATUS. Continue medications as directed and all activities as previously directed. Contact clinic tomorrow for recheck scheduling on long-term care rounds.
--- NOTE | 2020-04-15 08:15 | CT ---
[id number] CT/CT Head WO IV EXAM: CT Head WO IV CLINICAL DATA: FALL, TRAUMA COMPARISON STUDY: February 2018. FINDINGS: Right posterior parietal soft tissue scalp contusion. No underlying calvarial fracture. No acute intracranial hemorrhage. Diffuse bilateral symmetric parenchymal atrophy throughout both cerebral hemispheres. Findings are similar to the prior examination Paranasal sinuses and mastoid air cells are clear. IMPRESSION: Right posterior parietal soft tissue scalp contusion. No underlying calvarial fracture or acute intracranial hemorrhage. Osman Ji MD 04/15/20 0813 Thank you for allowing us to participate in the care of your patient.
== END 2020-04-14 23:45 ==
LOC: KA.ED 23:01
DX: S00.93XA Contusion of unspecified part of head, initial encounter (principal); F07.81 Postconcussional syndrome; I10 Essential (primary) hypertension; Z88.0 Allergy status to penicillin; Z79.01 Long term (current) use of anticoagulants; Z79.899 Other long term (current) drug therapy; W19.XXXA Unspecified fall, initial encounter
CPT/HCPCS: 70450; 99284; 99285-25